=== PATIENT | female | born 1940 | race Two or more races ===

== ENCOUNTER 2018-11-18 21:42 | Emergency (ER) | payer MEDICAID, OTHER ==
[~2018-11-18] VITALS: Ht 160 cm; Wt 72.6 kg
[2018-11-18] MEDS ORDERED: ONDANSETRON HCL 4 MG/2 ML VIAL IV ONE (22:45)
[2018-11-18] MEDS ORDERED: SODIUM CHLORIDE 0.9% 1,000 ML IV ONE (22:45)
[2018-11-18 22:53] LABS: Basophils # (auto) 0.1 uL; Basophils % (auto) 1.1 % (0.0-2.0); Eosinophils # (auto) 0.2 uL; Eosinophils % (auto) 3.4 % (0.0-7.0); Hematocrit 39.5 % (36.0-46.0); Lymphocytes # (auto) 1.1 uL; Mean Corpuscular Hemoglobin 28.3 pg (28.0-32.0); Mean Corpuscular Hgb Conc. 32.9 g/dL (32.0-36.0); Mean Corpuscular Volume 85.9 fL (80.0-100.0); Monocytes # (auto) 0.8 uL; Monocytes % (auto) 15.5 % (0.0-12.0); Neutrophils # (auto) 3.1 uL; Platelet Count (auto) 213 10^3/uL (140-450); Red Cell Distribution Width 14.2 % (11.8-14.3); White Blood Cell 5.2 10^3/uL (4.4-10.8)
[2018-11-18 23:06] LABS: Alanine Aminotransferase 42 U/L (13-56); Albumin 2.9 g/dL (3.4-5.0); Anion Gap 10 (5-15); Blood Urea Nitrogen 7 mg/dL (7-18); Calcium 8.2 mg/dL (8.5-10.1); Carbon Dioxide 27 mmol/L (21-32); Chloride 93 mmol/L (98-107); Glucose 307 mg/dL (74-106); Sodium 130 mmol/L (136-145)
[2018-11-18 23:08] LABS: Lactic Acid w/Reflex 3.4 mmol/L (0.4-2.0)
[2018-11-18 23:11] LABS: Alkaline Phosphatase 61 U/L (45-117); Aspartate Aminotransferase 40 U/L (15-37); Bilirubin, Total 0.5 mg/dL (0.2-1.0); GFR African American 71 mL/min; GFR Non-African American 58 mL/min; Total Protein 6.6 g/dL (6.4-8.2)
[2018-11-18 23:12] LABS: Potassium 2.6 mmol/L (3.5-5.1)
[2018-11-18] MEDS ORDERED: POTASSIUM CHL 20MEQ/100ML 100 ML IV ONE (23:15)
[2018-11-18] MEDS ORDERED: POTASSIUM CHL 20 Meq TABLET PO ONE (23:15)
[2018-11-18 23:44] LABS: BUN/Creatinine Ratio 7.1
[2018-11-19 00:08] LABS: Urine Bacteria NONE SEEN /hpf (None Seen); Urine Blood Negative /uL (Negative); Urine Specific Gravity 1.005 (1.001-1.035); Urine WBC <1 /hpf (0 - 5)
[2018-11-19 01:33] VITALS: BP 115/62
== END 2018-11-19 03:15 | disposition home or self-care (01) ==
LOC: EDBD 21:42 → ER 21:46
DX: N23 Unspecified renal colic (principal); N20.0 Calculus of kidney; R11.10 Vomiting, unspecified; M19.90 Unspecified osteoarthritis, unspecified site; E11.9 Type 2 diabetes mellitus without complications; E78.5 Hyperlipidemia, unspecified; I11.0 Hypertensive heart disease with heart failure; I50.9 Heart failure, unspecified
CPT/HCPCS: 36415; 71045; 74176; 80053; 81001; 83605; 83690; 84484; 85025; 93005; 96361; 96374; 99284; J2405; J3480; J7030

== ENCOUNTER 2020-03-22 14:54 | Emergency (ER) | payer MEDICAID ==
[~2020-03-22] VITALS: Ht 162.6 cm; Wt 81.6 kg
[2020-03-22] MEDS ORDERED: SODIUM CHLORIDE 0.9% 500 ML IV ONE (15:45)
[2020-03-22 16:28] LABS: Basophils # (auto) 0 10 ^3/uL (0-0.2); Eosinophils # (auto) 0 10 ^3/uL (0-0.8); Eosinophils % (auto) 0.3 % (0.0-7.0); Lymphocytes # (auto) 0.7 10 ^3/uL (0.4-5.4); Mean Corpuscular Hemoglobin 26.2 pg (28.0-32.0); Monocytes # (auto) 0.3 10 ^3/uL (0-1.3); Red Cell Distribution Width 14.7 % (11.8-14.3)
[2020-03-22 16:30] LABS: Basophils % (auto) 0.4 % (0.0-2.0); Mean Corpuscular Hgb Conc. 32.5 g/dL (32.0-36.0); Mean Corpuscular Volume 80.7 fL (80.0-100.0); Monocytes % (auto) 3.7 % (0.0-12.0); Neutrophils # (auto) 7.1 10 ^3/uL (1.6-8.6); Neutrophils % (auto) 87.6 % (37.0-80.0); Nucleated Red Blood Cells % 0.1 %; Platelet Count (auto) 225 10^3/uL (140-450); Red Blood Cells 5.33 10^6/uL (4.0-5.20); White Blood Cell 8.1 10^3/uL (4.4-10.8)
[2020-03-22 16:34] LABS: Albumin 3.3 g/dL (3.4-5.0); Anion Gap 8 (5-15); Blood Urea Nitrogen 15 mg/dL (7-18); Calcium 8.7 mg/dL (8.5-10.1); Carbon Dioxide 25 mmol/L (21-32); Chloride 98 mmol/L (98-107); Potassium 3.6 mmol/L (3.5-5.1); Sodium 131 mmol/L (136-145)
[2020-03-22 16:40] LABS: Alanine Aminotransferase 44 U/L (13-56); Alkaline Phosphatase 116 U/L (45-117); Aspartate Aminotransferase 36 U/L (15-37); Bilirubin, Total 0.4 mg/dL (0.2-1.0); GFR African American 70 mL/min; GFR Non-African American 58 mL/min; Total Protein 7.6 g/dL (6.4-8.2)
[2020-03-22 16:49] LABS: Glucose 433 mg/dL (74-106)
[2020-03-22 17:00] LABS: BUN/Creatinine Ratio 15.3
[2020-03-22] MEDS ORDERED: InsuLIN REG 1unit/0.01ml Soln (100units/ml) IV ONE ×2 (17:00→20:00)
[2020-03-22] MEDS ORDERED: POTASSIUM CHL 20 Meq TABLET PO ONE (17:00)
[2020-03-22] MEDS ORDERED: SODIUM CHLORIDE 0.9% 1,000 ML IV ONE ×2 (17:45→19:45)
[2020-03-22] MEDS ORDERED: InsuLIN REG 1unit/0.01ml Soln (100units/ml) SC ONE (17:45)
[2020-03-22 20:45] VITALS: BP 148/79
== END 2020-03-22 20:56 | disposition home or self-care (01) ==
LOC: EDBD 14:54 → ER 14:54
DX: E11.65 Type 2 diabetes mellitus with hyperglycemia (principal); M19.90 Unspecified osteoarthritis, unspecified site; E78.5 Hyperlipidemia, unspecified; I11.0 Hypertensive heart disease with heart failure; I50.9 Heart failure, unspecified
CPT/HCPCS: 36415; 71045; 80053; 82962; 83036; 83880; 84443; 84484; 85025; 93005; 96361; 96372; 96374; 99285; J1815

== ENCOUNTER 2021-02-20 12:58 | Emergency (ER) | payer MEDICARE, MEDICAID ==
[~2021-02-20] VITALS: Ht 167.6 cm; Wt 77.1 kg
[2021-02-20 13:45] LABS: Basophils # (auto) 0.1 10 ^3/uL (0-0.2); Basophils % (auto) 1.6 % (0.0-2.0); Eosinophils # (auto) 0.3 10 ^3/uL (0-0.8); Hemoglobin 13.2 g/dL (12.2-16.2); Lymphocytes # (auto) 1.6 10 ^3/uL (0.4-5.4); Nucleated Red Blood Cells % 0.1 %; White Blood Cell 4.9 10^3/uL (4.4-10.8)
[2021-02-20 13:48] LABS: Eosinophils % (auto) 5.6 % (0.0-7.0); Hematocrit 39.1 % (36.0-46.0); Lymphocytes % (auto) 32.1 % (10.0-50.0); Mean Corpuscular Hemoglobin 26.5 pg (28.0-32.0); Mean Corpuscular Hgb Conc. 33.6 g/dL (32.0-36.0); Mean Corpuscular Volume 78.9 fL (80.0-100.0); Monocytes # (auto) 0.6 10 ^3/uL (0-1.3); Monocytes % (auto) 11.5 % (0.0-12.0); Neutrophils # (auto) 2.4 10 ^3/uL (1.6-8.6); Neutrophils % (auto) 49.2 % (37.0-80.0); Red Blood Cells 4.96 10^6/uL (4.0-5.20); Red Cell Distribution Width 15.4 % (11.8-14.3)
[2021-02-20 14:16] LABS: Alanine Aminotransferase 23 U/L (13-56); Anion Gap 6 (5-15); Aspartate Aminotransferase 26 U/L (15-37); BUN/Creatinine Ratio 11.1; Blood Urea Nitrogen 8 mg/dL (7-18); Calcium 8.3 mg/dL (8.5-10.1); Carbon Dioxide 25 mmol/L (21-32); Chloride 105 mmol/L (98-107); GFR African American 100 mL/min; GFR Non-African American 83 mL/min; Glucose 151 mg/dL (74-106); Potassium 4.1 mmol/L (3.5-5.1); Sodium 136 mmol/L (136-145)
[2021-02-20 14:20] LABS: Alkaline Phosphatase 101 U/L (45-117); Bilirubin, Total 0.3 mg/dL (0.2-1.0)
[2021-02-20 15:44] LABS: Urine Amorphous Crystal FEW /hpf (None Seen); Urine Bacteria FEW /hpf (None Seen); Urine Blood Negative /uL (Negative); Urine Hyaline Cast FEW /lpf (0 - 2); Urine Mucus FEW (None Seen); Urine Specific Gravity 1.008 (1.001-1.035); Urine WBC 114 /hpf (0 - 5); Urine WBC Clumps PRESENT /hpf (None Seen)
[2021-02-20] MEDS ORDERED: cefTRIAXone 1GM/50ML D5W 50 ML IV ONE (16:00)
[2021-02-20 16:19] VITALS: BP 180/72
== END 2021-02-20 16:25 | disposition home or self-care (01) ==
LOC: ER 12:58
DX: N39.0 Urinary tract infection, site not specified (principal); E46 Unspecified protein-calorie malnutrition; I11.0 Hypertensive heart disease with heart failure; I50.9 Heart failure, unspecified; E78.5 Hyperlipidemia, unspecified; E11.9 Type 2 diabetes mellitus without complications; Z68.27 Body mass index [BMI] 27.0-27.9, adult
CPT/HCPCS: 36415; 71045; 74176; 80053; 81001; 84484; 85025; 85049; 93005; 96365; 99285; J0696

== ENCOUNTER 2022-01-27 19:02 | Emergency (ER) | payer MEDICARE, MEDICAID ==
[~2022-01-27] VITALS: Ht 152.4 cm; Wt 99.8 kg
[2022-01-27] MEDS ORDERED: cloNIDine HCL 0.1 MG TAB PO ONE (19:45)
[2022-01-27] MEDS ORDERED: SUMAtriptan SUCCINATE 6 MG/0.5 ML VL SC ONE (20:15)
[2022-01-27 20:24] LABS: Urine Bacteria FEW /hpf (None Seen); Urine Blood Negative /uL (Negative); Urine Specific Gravity 1.005 (1.001-1.035); Urine WBC 66 /hpf (0 - 5)
[2022-01-27] MEDS ORDERED: cefTRIAXone SOD 1,000 MG VL IM ONE (21:00)
[2022-01-27] MEDS ORDERED: NITR-87 PO (21:11)
[2022-01-27 21:20] VITALS: BP 155/74
[2022-01-28] MEDS ORDERED: NITROGLYCERIN 0.4 MG SL TAB SL ONE (10:00)
== END 2022-01-27 21:22 | disposition home or self-care (01) ==
LOC: ER 19:02
DX: R51.9 Headache, unspecified (principal); I10 Essential (primary) hypertension; N39.0 Urinary tract infection, site not specified
CPT/HCPCS: 70450; 81001; 93005; 96372; 99285; J0696; J3030

== ENCOUNTER 2024-03-17 12:04 | Inpatient (IN) | payer MEDICARE, OTHER ==
[~2024-03-17] VITALS: Ht 162.6 cm; Wt 85.0 kg
[2024-03-17] VITALS (8 sets, daily range): BP systolic 107–136; BP diastolic 63–78; PULSE 80–106; RESP 17–34; TEMP 99.5; O2SAT 31–100
[~2024-03-17 12:04] MED LIST: NITR-87 PO
[2024-03-17] MEDS: ALBUTEROL SULF 2.5 MG/0.5ML(0.5%) NEB SOLN NEB ONE ×3 (12:23→16:22)
[2024-03-17 12:43] LABS: Basophils # (auto) 0.1 10 ^3/uL (0-0.2); Eosinophils # (auto) 0 10 ^3/uL (0-0.8); Eosinophils % (auto) 0.6 % (0.0-7.0); Lymphocytes # (auto) 1.3 10 ^3/uL (0.4-5.4); Monocytes # (auto) 0.6 10 ^3/uL (0-1.3); Neutrophils # (auto) 3.6 10 ^3/uL (1.6-8.6); White Blood Cell 5.6 10^3/uL (4.4-10.8)
[2024-03-17 12:45] LABS: Hematocrit 35.8 % (36.0-46.0); Hemoglobin 11.1 g/dL (12.2-16.2); Lymphocytes % (auto) 22.7 % (10.0-50.0); Mean Corpuscular Hemoglobin 20.3 pg (28.0-32.0); Mean Corpuscular Hgb Conc. 31.1 g/dL (32.0-36.0); Mean Corpuscular Volume 65.4 fL (80.0-100.0); Monocytes % (auto) 11.2 % (0.0-12.0); Neutrophils % (auto) 64.5 % (37.0-80.0); Nucleated Red Blood Cells % 0.3 %; Red Blood Cells 5.48 10^6/uL (4.0-5.20)
[2024-03-17 12:49] LABS: Red Cell Distribution Width 21.8 % (11.8-14.3)
[2024-03-17 13:00] LABS: Alanine Aminotransferase 34 U/L (7-40); Albumin 3.8 g/dL (3.2-4.8); Alkaline Phosphatase 82 U/L (46-116); Anion Gap 7 (5-15); Aspartate Aminotransferase 38 U/L (13-40); BUN/Creatinine Ratio 15.9 (10.0-20.0); Bilirubin, Total 0.5 mg/dL (0.2-1.0); Blood Urea Nitrogen 14 mg/dL (9-23); Calcium 8.5 mg/dL (8.7-10.4); Carbon Dioxide 26 mmol/L (20-30); Chloride 101 mmol/L (98-107); Glucose 72 mg/dL (74-106); Sodium 134 mmol/L (136-145)
[2024-03-17 13:01] LABS: Total Protein 5.8 g/dL (5.7-8.2)
[2024-03-17 13:54] LABS: Base Excess 1.1 mmol/L (-2.0-2.0)
[2024-03-17 13:54] LABS: Anisocytosis Slight; Ovalocytes FEW; Platelet Estimate Adequate
[2024-03-17] MEDS: FUROSEMIDE 40 MG/4 ML VIAL IV ONE (14:10)
[2024-03-17] MEDS: methylPREDNISolone SOD SUCC 125 MG/2 ML VL IV ONE (14:30)
[2024-03-17] MEDS ORDERED: ONDANSETRON HCL 4 MG/2 ML VIAL IV PRN (14:45)
[2024-03-17] MEDS ORDERED: NITROGLYCERIN 0.4 MG SL TAB SL PRN (14:45)
[2024-03-17] MEDS ORDERED: DEXTROSE (50%) 50ML SYRG IV PRN (14:45)
[2024-03-17] MEDS ORDERED: DOCUSATE SOD 100 MG CAP PO PRN (14:45)
[2024-03-17] MEDS ORDERED: levoFLOXacin 500MG 100 ML IV ONE (14:45)
[2024-03-17] MEDS ORDERED: MORPHINE SULFATE INJ 2 MG/ml SYRG IV PRN (14:45)
[2024-03-17] MEDS: ENOXAPARIN SOD 40 MG/0.4 ML SYRINGE SC SCH (15:48)
[2024-03-17] MEDS: levoFLOXacin 500MG 100 ML IV ONE (15:48)
[2024-03-17] MEDS: IPRATROPIUM BROM 0.5 MG/2.5ML INH SOL NEB ONE (16:22)
[2024-03-17 17:03] LABS: Base Excess -0.9 mmol/L (-2.0-2.0)
[2024-03-17] MEDS: IPRATROPIUM BROM 0.5 MG/2.5ML INH SOL NEB SCH (17:44)
[2024-03-17] MEDS: ALBUTEROL SULF 2.5 MG/0.5ML(0.5%) NEB SOLN NEB SCH (17:46)
[2024-03-17] MEDS: ACCU-CHEK COMFORT CURVE STRIP VI SCH (18:00)
[2024-03-17] MEDS: InsuLIN REG 1unit/0.01ml Soln (100units/ml) SC SCH (18:30)
[2024-03-17] MEDS: PANTOPRAZOLE 40 MG/10 ML VIAL INJ IV ONE (18:38)
[2024-03-17] MEDS: FUROSEMIDE 20 MG/2 ML VIAL IV SCH (18:39)
[2024-03-17] MEDS: ENOXAPARIN SOD 30 MG/0.3 ML SYRINGE SC ONE (19:28)
[2024-03-17 19:54] LABS: INR 1.13 (0.9-1.15); Prothrombin Time 11.9 sec (9.3-11.8)
[2024-03-17] MEDS: MELATONIN 5 MG TAB PO SCH (22:12)
[2024-03-17] MEDS: methylPREDNISolone SOD SUCC 125 MG/2 ML VL IV SCH (22:12)
[2024-03-18] VITALS (20 sets, daily range): BP systolic 106–128; BP diastolic 43–58; PULSE 71–92; RESP 13–25; TEMP 97.9–98.4; O2SAT 92–100
[2024-03-18] MEDS: MORPHINE SULFATE INJ 2 MG/ml SYRG IV PRN (04:28)
[2024-03-18 06:17] LABS: Alanine Aminotransferase 29 U/L (7-40); Albumin 3.4 g/dL (3.2-4.8); Alkaline Phosphatase 65 U/L (46-116); Anion Gap 12 (5-15); Aspartate Aminotransferase 37 U/L (13-40); BUN/Creatinine Ratio 16.2 (10.0-20.0); Basophils # (auto) 0 10 ^3/uL (0-0.2); Basophils % (auto) 0.2 % (0.0-2.0); Blood Urea Nitrogen 22 mg/dL (9-23); Calcium 7.6 mg/dL (8.7-10.4); Carbon Dioxide 20 mmol/L (20-30); Chloride 96 mmol/L (98-107); Eosinophils # (auto) 0 10 ^3/uL (0-0.8); Hemoglobin 9.9 g/dL (12.2-16.2); Lymphocytes # (auto) 0.4 10 ^3/uL (0.4-5.4); Nucleated Red Blood Cells % 0.2 %; Potassium 3.9 mmol/L (3.5-5.1); Red Cell Distribution Width 22.3 % (11.8-14.3); White Blood Cell 3.9 10^3/uL (4.4-10.8)
[2024-03-18 06:18] LABS: Bilirubin, Total 0.3 mg/dL (0.2-1.0); Hematocrit 31.5 % (36.0-46.0); Lymphocytes % (auto) 10.4 % (10.0-50.0); Mean Corpuscular Hemoglobin 20.8 pg (28.0-32.0); Mean Corpuscular Hgb Conc. 31.5 g/dL (32.0-36.0); Mean Corpuscular Volume 65.9 fL (80.0-100.0); Monocytes # (auto) 0.2 10 ^3/uL (0-1.3); Monocytes % (auto) 4.1 % (0.0-12.0); Neutrophils # (auto) 3.3 10 ^3/uL (1.6-8.6); Neutrophils % (auto) 85.3 % (37.0-80.0); Red Blood Cells 4.78 10^6/uL (4.0-5.20); Total Protein 5.8 g/dL (5.7-8.2)
[2024-03-18] MEDS: ENOXAPARIN SOD 60 MG/0.6 ML SYRINGE SC SCH (06:18)
[2024-03-18 06:20] LABS: Sodium 128 mmol/L (136-145)
[2024-03-18 06:22] LABS: Glucose 459 mg/dL (74-106)
[2024-03-18] MEDS: INSULIN LANTUS (GLARGINE) 1 /0.01ml (100units/ml) SC SCH ×2 (06:22→21:31)
[2024-03-18 06:39] LABS: Anisocytosis Slight
[2024-03-18 06:40] LABS: Hypochromia Moderate; Ovalocytes FEW
[2024-03-18 06:44] LABS: Platelet Estimate Adequate
[2024-03-18] MEDS ORDERED: DEXTROSE (50%) 50ML SYRG IV PRN ×2 (08:15→16:15)
[2024-03-18] MEDS ORDERED: levoFLOXacin 500MG 100 ML IV SCH (10:00)
[2024-03-18] MEDS: PANTOPRAZOLE 40 MG/10 ML VIAL INJ IV SCH (10:15)
[2024-03-18] MEDS: cefTRIAXone 1GM/50ML D5W 50 ML IV ONE (10:15)
[2024-03-18] MEDS: levoFLOXacin 250MG 50 ML IV SCH (11:21)
[2024-03-18] MEDS: ACCU-CHEK COMFORT CURVE STRIP VI SCH ×2 (12:00→19:44)
[2024-03-18] MEDS: InsuLIN REG 1unit/0.01ml Soln (100units/ml) SC SCH ×3 (12:00→19:52)
[2024-03-18] MEDS: INSULIN LANTUS (GLARGINE) 1 /0.01ml (100units/ml) SC ONE (13:00)
[2024-03-18] MEDS: InsuLIN REG 1unit/0.01ml Soln (100units/ml) SC ONE (13:00)
[2024-03-18] MEDS ORDERED: OXYB10GE TOP (17:15)
[2024-03-18] MEDS ORDERED: LEVO25TA6 PO (17:15)
[2024-03-18] MEDS ORDERED: ATOR10TA52 PO (17:15)
[2024-03-18] MEDS ORDERED: OXYB5SOL PO (17:15)
[2024-03-18] MEDS ORDERED: AML5T PO (17:15)
[2024-03-18] MEDS ORDERED: SITA50TA PO (17:15)
[2024-03-18] MEDS ORDERED: LOSA-534 PO (17:15)
[2024-03-18] MEDS ORDERED: CHOL20007 PO (17:15)
[2024-03-18] MEDS ORDERED: POTA-36 PO (17:15)
[2024-03-18] MEDS ORDERED: OMEP-434 PO (17:15)
[2024-03-18] MEDS ORDERED: FURO1TAB33 PO (17:15)
[2024-03-18] MEDS ORDERED: GLIP10TA9 PO (17:15)
[2024-03-18] MEDS ORDERED: METO-158 PO (17:15)
[2024-03-18] MEDS: predniSONE 20 MG TAB PO ONE (18:17)
[2024-03-19] VITALS (18 sets, daily range): BP systolic 107–136; BP diastolic 51–68; PULSE 63–105; RESP 16–21; TEMP 97.5–98.7; O2SAT 9–100
[2024-03-19 00:55] LABS: COVID19 ANTIGEN SOFIA FIA NEGATIVE (NEGATIVE); Rapid Influenza A Negative (Negative); Rapid Influenza B Negative (Negative)
[2024-03-19 05:38] LABS: Basophils # (auto) 0 10 ^3/uL (0-0.2); Basophils % (auto) 0.1 % (0.0-2.0); Eosinophils # (auto) 0 10 ^3/uL (0-0.8); Hematocrit 29.4 % (36.0-46.0); Hemoglobin 9.6 g/dL (12.2-16.2); Lymphocytes # (auto) 0.6 10 ^3/uL (0.4-5.4); Lymphocytes % (auto) 5.8 % (10.0-50.0); Mean Corpuscular Hemoglobin 21.1 pg (28.0-32.0); Mean Corpuscular Hgb Conc. 32.6 g/dL (32.0-36.0); Mean Corpuscular Volume 64.6 fL (80.0-100.0); Monocytes # (auto) 0.5 10 ^3/uL (0-1.3); Monocytes % (auto) 5.4 % (0.0-12.0); Neutrophils # (auto) 8.9 10 ^3/uL (1.6-8.6); Neutrophils % (auto) 88.7 % (37.0-80.0); Nucleated Red Blood Cells % 0.1 %; Red Blood Cells 4.55 10^6/uL (4.0-5.20); White Blood Cell 10.1 10^3/uL (4.4-10.8)
[2024-03-19 05:39] LABS: Red Cell Distribution Width 21.8 % (11.8-14.3)
[2024-03-19 05:47] LABS: Alanine Aminotransferase 25 U/L (7-40); Albumin 3.6 g/dL (3.2-4.8); Alkaline Phosphatase 64 U/L (46-116); Anion Gap 7 (5-15); Aspartate Aminotransferase 25 U/L (13-40); BUN/Creatinine Ratio 27.7 (10.0-20.0); Bilirubin, Total 0.3 mg/dL (0.2-1.0); Blood Urea Nitrogen 28 mg/dL (9-23); Calcium 8.2 mg/dL (8.7-10.4); Carbon Dioxide 25 mmol/L (20-30); Chloride 99 mmol/L (98-107); Glucose 177 mg/dL (74-106); Magnesium 1.9 mg/dL (1.6-2.6); Potassium 4.1 mmol/L (3.5-5.1); Sodium 131 mmol/L (136-145); Total Protein 5.7 g/dL (5.7-8.2)
[2024-03-19] MEDS: LEVOTHYROXINE SODIUM 25 MCG TAB PO SCH (06:09)
[2024-03-19] MEDS: cefTRIAXone 1GM/50ML D5W 50 ML IV SCH (08:31)
[2024-03-19] MEDS: predniSONE 20 MG TAB PO SCH (09:54)
[2024-03-19] MEDS: ATORVASTATIN 20 MG TAB PO SCH (09:54)
[2024-03-19] MEDS: ENOXAPARIN SOD 40 MG/0.4 ML SYRINGE SC SCH (09:55)
[2024-03-19 11:13] LABS: Urine Bacteria None Seen /hpf (None Seen)
[2024-03-19] MEDS ORDERED: PANTOPRAZOLE 40 MG TAB PO ONE (11:30)
[2024-03-19 11:52] LABS: Amphetamine Screen, Urine Neg (NEGATIVE); Barbiturate Scree,Urine Neg (NEGATIVE); Benzodiazephine Screen, Urine Neg (NEGATIVE); Cocaine Screen, Urine Neg (NEGATIVE)
[2024-03-19 11:53] LABS: Cannabinoid Screen, Urine Neg (NEGATIVE); Opiate Scree,Urine Neg (NEGATIVE); Phencyclidine Screen, Urine Neg (NEGATIVE)
[2024-03-19] MEDS ORDERED: DEXTROSE (50%) 50ML SYRG IV PRN (12:00)
[2024-03-19] MEDS: ACCU-CHEK COMFORT CURVE STRIP VI SCH (12:00)
[2024-03-19 12:03] LABS: Urine Blood TRACE /uL (Negative); Urine Clarity Clear (Clear); Urine Color Light-Yellow (Yellow); Urine Hyaline Cast FEW /lpf (0 - 2); Urine Protein, UAD Negative (Negative); Urine Specific Gravity 1.015 (1.001-1.035); Urine Urobilinogen Normal (Negative); Urine WBC 1 /hpf (0 - 5); Urine pH 5.5 (5.0-9.0)
[2024-03-19 12:10] LABS: Free T4 (Free Thyroxine) 0.96 ng/dL (0.89-1.76); T3 Total 0.94 ng/mL (0.60-1.81)
[2024-03-19] MEDS: InsuLIN REG 1unit/0.01ml Soln (100units/ml) SC SCH (12:11)
[2024-03-19] MEDS ORDERED: FUROSEMIDE 20 MG TAB PO ONE (12:15)
[2024-03-19] MEDS: ERGOCALCIFEROL 50,000 UNIT(1.25MG) CAP PO SCH (16:58)
[2024-03-19] MEDS: FUROSEMIDE 20 MG/2 ML VIAL IV ONE (16:58)
[2024-03-19] MEDS: ATORVASTATIN 20 MG TAB PO ONE (16:59)
[2024-03-19] MEDS: CYANOCOBALAMIN (B-12) 1000 MCG/1 ML VIAL IM ONE (17:00)
[2024-03-19] MEDS: ACETYLCYSTEINE 10 %(100MG/ML) SOL 4ML NEB SCH (18:28)
[2024-03-19] MEDS: methylPREDNISolone SOD SUCC 125 MG/2 ML VL IV SCH (21:27)
[2024-03-20] VITALS (20 sets, daily range): BP systolic 120–146; BP diastolic 49–75; PULSE 68–103; RESP 16–22; TEMP 98.1–98.2; O2SAT 94–100
[2024-03-20] MEDS: PANTOPRAZOLE 40 MG TAB PO SCH (06:04)
[2024-03-20] MEDS: FUROSEMIDE 20 MG/2 ML VIAL IV SCH (06:04)
[2024-03-20 06:07] LABS: Basophils # (auto) 0 10 ^3/uL (0-0.2); Basophils % (auto) 0.1 % (0.0-2.0); Eosinophils # (auto) 0 10 ^3/uL (0-0.8); Hematocrit 29.3 % (36.0-46.0); Hemoglobin 9.5 g/dL (12.2-16.2); Lymphocytes # (auto) 0.2 10 ^3/uL (0.4-5.4); Lymphocytes % (auto) 2.5 % (10.0-50.0); Mean Corpuscular Hemoglobin 21.2 pg (28.0-32.0); Mean Corpuscular Hgb Conc. 32.4 g/dL (32.0-36.0); Mean Corpuscular Volume 65.4 fL (80.0-100.0); Monocytes # (auto) 0.3 10 ^3/uL (0-1.3); Monocytes % (auto) 3.5 % (0.0-12.0); Neutrophils % (auto) 93.9 % (37.0-80.0); Red Blood Cells 4.48 10^6/uL (4.0-5.20); White Blood Cell 8.5 10^3/uL (4.4-10.8)
[2024-03-20 06:11] LABS: Red Cell Distribution Width 22.2 % (11.8-14.3)
[2024-03-20 06:13] LABS: Chloride 98 mmol/L (98-107); Potassium 3.8 mmol/L (3.5-5.1); Sodium 131 mmol/L (136-145)
[2024-03-20 06:14] LABS: Anion Gap 10 (5-15); Carbon Dioxide 23 mmol/L (20-30)
[2024-03-20 06:15] LABS: Calcium 8.3 mg/dL (8.7-10.4)
[2024-03-20 06:19] LABS: Glucose 388 mg/dL (74-106)
[2024-03-20 06:20] LABS: BUN/Creatinine Ratio 23.2 (10.0-20.0); Blood Urea Nitrogen 23 mg/dL (9-23)
[2024-03-20] MEDS ORDERED: FUROSEMIDE 20 MG/2 ML VIAL IV SCH (10:00)
[2024-03-20] MEDS ORDERED: FUROSEMIDE 20 MG TAB PO SCH (10:00)
[2024-03-20] MEDS ORDERED: LEVO750T40 PO (16:35)
[2024-03-20] MEDS ORDERED: MELA5TAB16 PO (16:35)
[2024-03-20] MEDS ORDERED: ERGO1CAP23 PO (16:35)
[2024-03-20] MEDS ORDERED: PANT40T PO (16:35)
[2024-03-20] MEDS ORDERED: ATOR20TA50 PO (16:35)
[2024-03-20] MEDS ORDERED: INSLANTI SC (16:35)
[2024-03-20] MEDS ORDERED: LEVO500T91 PO (16:40)
[2024-03-20] MEDS: InsuLIN REG 1unit/0.01ml Soln (100units/ml) SC SCH ×2 (17:34→21:51)
[2024-03-20] MEDS: DOCUSATE SOD 100 MG CAP PO ONE (18:30)
[2024-03-20] MEDS: INSULIN LANTUS (GLARGINE) 1 /0.01ml (100units/ml) SC ONE (18:47)
[2024-03-20] MEDS: ATORVASTATIN 20 MG TAB PO SCH (22:04)
[2024-03-21] VITALS (16 sets, daily range): BP systolic 131–142; BP diastolic 54–66; PULSE 83–109; RESP 16–21; TEMP 36.8; O2SAT 91–100
[2024-03-21] MEDS ORDERED: DEXTROSE (50%) 50ML SYRG IV PRN (00:15)
[2024-03-21] MEDS: InsuLIN REG 1unit/0.01ml Soln (100units/ml) SC ONE (00:36)
[2024-03-21] MEDS: ACCU-CHEK COMFORT CURVE STRIP VI SCH (03:38)
[2024-03-21] MEDS: InsuLIN REG 1unit/0.01ml Soln (100units/ml) SC SCH (03:38)
[2024-03-21] MEDS ORDERED: InsuLIN REG 1unit/0.01ml Soln (100units/ml) SC SCH (04:00)
[2024-03-21 07:00] LABS: Basophils # (auto) 0 10 ^3/uL (0-0.2); Basophils % (auto) 0.2 % (0.0-2.0); Eosinophils # (auto) 0 10 ^3/uL (0-0.8); Hematocrit 30.5 % (36.0-46.0); Hemoglobin 9.6 g/dL (12.2-16.2); Lymphocytes # (auto) 0.6 10 ^3/uL (0.4-5.4); Mean Corpuscular Hemoglobin 20.6 pg (28.0-32.0); Mean Corpuscular Hgb Conc. 31.6 g/dL (32.0-36.0); Mean Corpuscular Volume 65.3 fL (80.0-100.0); Monocytes # (auto) 0.9 10 ^3/uL (0-1.3); Monocytes % (auto) 9.5 % (0.0-12.0); Neutrophils # (auto) 7.5 10 ^3/uL (1.6-8.6); Neutrophils % (auto) 83.3 % (37.0-80.0); Nucleated Red Blood Cells % 0.1 %; Red Blood Cells 4.67 10^6/uL (4.0-5.20)
[2024-03-21 07:01] LABS: Red Cell Distribution Width 21.8 % (11.8-14.3)
[2024-03-21 07:17] LABS: Partial Thromboplastin Time 26.3 SEC (24.5-34.5); Prothrombin Time 10.6 sec (9.3-11.8)
[2024-03-21 07:28] LABS: Alanine Aminotransferase 24 U/L (7-40); Alkaline Phosphatase 70 U/L (46-116); Anion Gap 9 (5-15); BUN/Creatinine Ratio 25.3 (10.0-20.0); Blood Urea Nitrogen 21 mg/dL (9-23); Calcium 8.6 mg/dL (8.7-10.4); Carbon Dioxide 26 mmol/L (20-30); Chloride 100 mmol/L (98-107); Glucose 243 mg/dL (74-106); Potassium 3.8 mmol/L (3.5-5.1); Sodium 135 mmol/L (136-145)
[2024-03-21 07:29] LABS: Albumin 3.7 g/dL (3.2-4.8); Aspartate Aminotransferase 14 U/L (13-40)
[2024-03-21 07:30] LABS: Bilirubin, Total 0.4 mg/dL (0.2-1.0); Total Protein 6.1 g/dL (5.7-8.2)
[2024-03-21] MEDS: methylPREDNISolone SOD SUCC 40 MG/ML VL IV SCH (09:01)
[2024-03-21] MEDS: DOCUSATE SOD 100 MG CAP PO SCH (09:02)
[2024-03-21] MEDS ORDERED: PRED20TA2 PO (11:26)
[2024-03-21] MEDS ORDERED: CYAN100056 PO (14:58)
[2024-03-21] MEDS ORDERED: INSLANTI SC (14:58)
[2024-03-21 15:26] LABS: Base Excess 0.7 mmol/L (-2.0-2.0)
[2024-03-21] MEDS: LACTULOSE 20Gm/30ML SOLN PO ONE (17:10)
[2024-03-22] MEDS ORDERED: levoFLOXacin 500MG 100 ML IV SCH (10:00)
== END 2024-03-21 17:35 | disposition home health service (06) | DRG 871 ==
LOC: EDBD 12:04 → EDUNIT# 12:04 → ER 12:11 → TELE 14:58 → TELE-WESTW 14:58 → DOU IN ICU 03-18 00:31 → TELE-WESTW 03-18 17:56
PROVIDERS: ADMIT Internal Medicine; ATTEND Internal Medicine
PROC: 5A09357 Assistance with Respiratory Ventilation, Less than 24 Consecutive Hours, Continuous Positive Airway Pressure (ICD-10-PCS; principal; 2024-03-17)
DX: A41.9 Sepsis, unspecified organism (principal); I50.43 Acute on chronic combined systolic (congestive) and diastolic (congestive) heart failure; J96.01 Acute respiratory failure with hypoxia; J15.69 Pneumonia due to other Gram-negative bacteria; J15.9 Unspecified bacterial pneumonia; J44.1 Chronic obstructive pulmonary disease with (acute) exacerbation; J44.0 Chronic obstructive pulmonary disease with (acute) lower respiratory infection; Z20.822 Contact with and (suspected) exposure to COVID-19; D64.9 Anemia, unspecified; I11.0 Hypertensive heart disease with heart failure; E78.5 Hyperlipidemia, unspecified; M19.09 Primary osteoarthritis, other specified site; R91.1 Solitary pulmonary nodule; E03.9 Hypothyroidism, unspecified; E55.9 Vitamin D deficiency, unspecified; E11.65 Type 2 diabetes mellitus with hyperglycemia; Z79.899 Other long term (current) drug therapy; Z79.4 Long term (current) use of insulin
CPT/HCPCS: 36415; 36600; 71045; 71250; 78582; 80048; 80053; 80307; 81001; 82306; 82607; 82805; 82962; 83036; 83605; 83735; 83880; 84439; 84443; 84480; 84484; 85025; 85379; 85610; 85730; 87040; 87070; 87077; 87081; 87086; 87205; 87426; 87804; 93005; 93306; 93970; 94640; 94660; 97110; 97116; 97163; 97530; 99291; G0378; J1815; J1956; J2470

== ENCOUNTER 2024-05-21 18:18 | Inpatient (IN) | payer MEDICARE, OTHER ==
[~2024-05-21] VITALS: Ht 167.6 cm; Wt 84.1 kg
[~2024-05-21 18:18] MED LIST changes: +ATOR20TA50 PO; +CITA-77 PO; +CYAN100056 PO; +CYAN1TAB11 PO; +ERGO1CAP23 PO; +FURO1TAB33 PO; +FURO20TA3 PO; +GLIP10TA9 PO; +INSLANTI SC; +LEVO25TA6 PO; +LEVO500T91 PO; +LOSA-534 PO; +MELA5TAB16 PO; +METO-158 PO; +METO-289 PO; -NITR-87 PO; +OMEP-434 PO; +OXYB10GE TOP; +OXYB5TAB14 PO; +PANT40T PO; +POTA-36 PO; +PRED20TA2 PO; +SITA50TA PO; +SUCR1TAB PO
[2024-05-21 18:50] LABS: Basophils # (auto) 0.1 10 ^3/uL (0-0.2); Eosinophils # (auto) 0.2 10 ^3/uL (0-0.8); Hemoglobin 11.9 g/dL (12.2-16.2); Lymphocytes # (auto) 1.7 10 ^3/uL (0.4-5.4); Monocytes # (auto) 0.7 10 ^3/uL (0-1.3)
[2024-05-21 18:52] LABS: Basophils % (auto) 1.6 % (0.0-2.0); Eosinophils % (auto) 3.6 % (0.0-7.0); Hematocrit 37.1 % (36.0-46.0); Lymphocytes % (auto) 35.9 % (10.0-50.0); Mean Corpuscular Hemoglobin 22.6 pg (28.0-32.0); Mean Corpuscular Hgb Conc. 32.1 g/dL (32.0-36.0); Mean Corpuscular Volume 70.6 fL (80.0-100.0); Monocytes % (auto) 14.3 % (0.0-12.0); Neutrophils # (auto) 2.2 10 ^3/uL (1.6-8.6); Neutrophils % (auto) 44.6 % (37.0-80.0); Nucleated Red Blood Cells % 0.2 %; Platelet Count (auto) 348 10^3/uL (140-450); Red Blood Cells 5.26 10^6/uL (4.0-5.20); Red Cell Distribution Width 21.6 % (11.8-14.3); White Blood Cell 4.9 10^3/uL (4.4-10.8)
[2024-05-21 19:08] LABS: Alanine Aminotransferase 25 U/L (7-40); Alkaline Phosphatase 72 U/L (46-116); Anion Gap 7 (5-15); Aspartate Aminotransferase 57 U/L (13-40); BUN/Creatinine Ratio 8.9 (10.0-20.0); Blood Urea Nitrogen 10 mg/dL (9-23); Carbon Dioxide 27 mmol/L (20-30); Chloride 97 mmol/L (98-107); Glucose 96 mg/dL (74-106); Lipase 46 U/L (12-53)
[2024-05-21 19:09] LABS: Bilirubin, Total 0.6 mg/dL (0.2-1.0); Total Protein 6.5 g/dL (5.7-8.2)
[2024-05-21 19:10] LABS: Sodium 131 mmol/L (136-145)
[2024-05-21 19:30] VITALS: RESP 16
[2024-05-21] MEDS: ACETAMINOPHEN 325 MG TAB PO ONE (20:15)
[2024-05-21] MEDS ORDERED: DEXTROSE (50%) 50ML SYRG IV PRN (22:00)
[2024-05-21] MEDS ORDERED: SODIUM CHLORIDE 0.9% 1,000 ML IV SCH (23:00)
[2024-05-22] VITALS (9 sets, daily range): BP systolic 100–152; BP diastolic 33–48; PULSE 57–67; RESP 16–18; TEMP 96.6–97.8; O2SAT 91–99
[2024-05-22] MEDS: ACCU-CHEK COMFORT CURVE STRIP VI SCH
[2024-05-22] MEDS: MAGNESIUM SULFATE 1GM/100ML 100 ML IV SCH ×2 (00:15→05:54)
[2024-05-22] MEDS: ONDANSETRON ODT 4 MG TAB PO ONE (00:31)
[2024-05-22] MEDS: ENOXAPARIN SOD 40 MG/0.4 ML SYRINGE SC ONE (00:32)
[2024-05-22] MEDS: METOPROLOL SUCCINATE XL 50 MG TAB PO ONE (00:33)
[2024-05-22] MEDS: ATORVASTATIN 20 MG TAB PO SCH (00:33)
[2024-05-22] MEDS: LOSARTAN POTASSIUM 50 MG TAB PO ONE (00:33)
[2024-05-22] MEDS: SUCRALFATE 1 GM TAB PO SCH (00:34)
[2024-05-22] MEDS: LEVOTHYROXINE SODIUM 25 MCG TAB PO ONE (00:34)
[2024-05-22] MEDS: SODIUM CHLORIDE 0.9% 1,000 ML IV ONE (00:34)
[2024-05-22] MEDS: InsuLIN REG 1unit/0.01ml Soln (100units/ml) SC SCH (00:35)
[2024-05-22] MEDS: PANTOPRAZOLE 40 MG/10 ML VIAL INJ IV ONE (00:36)
[2024-05-22] MEDS: POTASSIUM CHL 20MEQ/100ML 100 ML IV ONE ×2 (00:49→03:16)
[2024-05-22] MEDS ORDERED: AMLO1TAB23 PO (03:29)
[2024-05-22] MEDS ORDERED: CHOL20007 PO (03:30)
[2024-05-22] MEDS: ACETAMINOPHEN 500 MG TAB PO PRN (03:34)
[2024-05-22] MEDS: LEVOTHYROXINE SODIUM 25 MCG TAB PO SCH (05:50)
[2024-05-22] MEDS: SODIUM CHLORIDE 0.9% 1,000 ML IV SCH (06:14)
[2024-05-22 07:21] LABS: Rapid Influenza A Negative (Negative); Rapid Influenza B Negative (Negative)
[2024-05-22 07:22] LABS: COVID19 ANTIGEN SOFIA FIA NEGATIVE (NEGATIVE)
[2024-05-22 07:34] LABS: Basophils # (auto) 0.1 10 ^3/uL (0-0.2); Basophils % (auto) 1.2 % (0.0-2.0); Eosinophils # (auto) 0.2 10 ^3/uL (0-0.8); Eosinophils % (auto) 3.3 % (0.0-7.0); Hematocrit 34.4 % (36.0-46.0); Hemoglobin 11.1 g/dL (12.2-16.2); Lymphocytes # (auto) 2.1 10 ^3/uL (0.4-5.4); Lymphocytes % (auto) 36.5 % (10.0-50.0); Mean Corpuscular Hemoglobin 22.9 pg (28.0-32.0); Mean Corpuscular Hgb Conc. 32.1 g/dL (32.0-36.0); Mean Corpuscular Volume 71.4 fL (80.0-100.0); Monocytes # (auto) 0.9 10 ^3/uL (0-1.3); Monocytes % (auto) 15.5 % (0.0-12.0); Neutrophils # (auto) 2.5 10 ^3/uL (1.6-8.6); Neutrophils % (auto) 43.5 % (37.0-80.0); Nucleated Red Blood Cells % 0.1 %; Platelet Count (auto) 345 10^3/uL (140-450); Red Blood Cells 4.83 10^6/uL (4.0-5.20); Red Cell Distribution Width 21.7 % (11.8-14.3); White Blood Cell 5.8 10^3/uL (4.4-10.8)
[2024-05-22 07:44] LABS: Anion Gap 10 (5-15); Carbon Dioxide 24 mmol/L (20-30); Chloride 98 mmol/L (98-107); Potassium 3.5 mmol/L (3.5-5.1); Sodium 132 mmol/L (136-145)
[2024-05-22 07:45] LABS: Calcium 8.5 mg/dL (8.7-10.4)
[2024-05-22 07:50] LABS: Glucose 63 mg/dL (74-106)
[2024-05-22 07:51] LABS: BUN/Creatinine Ratio 8.4 (10.0-20.0); Blood Urea Nitrogen 11 mg/dL (9-23)
[2024-05-22] MEDS: MORPHINE SULFATE INJ 2 MG/ml SYRG IV PRN (09:09)
[2024-05-22] MEDS ORDERED: LOSARTAN POTASSIUM 50 MG TAB PO SCH (10:00)
[2024-05-22] MEDS ORDERED: METOPROLOL SUCCINATE XL 50 MG TAB PO SCH (10:00)
[2024-05-22] MEDS: PANTOPRAZOLE 40 MG/10 ML VIAL INJ IV SCH (11:04)
[2024-05-22] MEDS ORDERED: IPRATROPIUM BROM 0.5 MG/2.5ML INH SOL NEB PRN (13:15)
[2024-05-22 18:43] LABS: Urine Bacteria FEW /hpf (None Seen); Urine Blood Negative /uL (Negative); Urine Clarity Turbid (Clear); Urine Color Light-Yellow (Yellow); Urine Mucus FEW (None Seen); Urine Protein, UAD Negative (Negative); Urine Urobilinogen Normal (Negative); Urine WBC 8 /hpf (0 - 5); Urine pH 5.5 (5.0-9.0)
[2024-05-23] VITALS (10 sets, daily range): BP systolic 111–154; BP diastolic 39–62; PULSE 59–70; RESP 18–20; TEMP 97.8–98.6; O2SAT 91–99
[2024-05-23] MEDS: InsuLIN REG 1unit/0.01ml Soln (100units/ml) SC SCH (02:00)
[2024-05-23] MEDS: ACCU-CHEK COMFORT CURVE STRIP VI SCH (02:00)
[2024-05-23 07:50] LABS: Eosinophils # (auto) 0.2 10 ^3/uL (0-0.8); Hemoglobin 10.6 g/dL (12.2-16.2); Lymphocytes # (auto) 1.1 10 ^3/uL (0.4-5.4); Mean Corpuscular Hgb Conc. 31.4 g/dL (32.0-36.0); Monocytes # (auto) 0.6 10 ^3/uL (0-1.3); Neutrophils # (auto) 2.2 10 ^3/uL (1.6-8.6); White Blood Cell 4.2 10^3/uL (4.4-10.8)
[2024-05-23] MEDS: ONDANSETRON HCL 4 MG/2 ML VIAL IV PRN (07:50)
[2024-05-23 07:53] LABS: Basophils # (auto) 0.1 10 ^3/uL (0-0.2); Basophils % (auto) 1.5 % (0.0-2.0); Eosinophils % (auto) 4.2 % (0.0-7.0); Hematocrit 33.9 % (36.0-46.0); Lymphocytes % (auto) 26.5 % (10.0-50.0); Mean Corpuscular Hemoglobin 22.3 pg (28.0-32.0); Monocytes % (auto) 14.8 % (0.0-12.0); Nucleated Red Blood Cells % 0.2 %; Platelet Count (auto) 321 10^3/uL (140-450); Red Blood Cells 4.77 10^6/uL (4.0-5.20)
[2024-05-23 08:04] LABS: INR 1.06 (0.9-1.15); Partial Thromboplastin Time 30.3 SEC (24.5-34.5); Prothrombin Time 11.2 sec (9.3-11.8)
[2024-05-23 08:10] LABS: Anion Gap 7 (5-15); Carbon Dioxide 27 mmol/L (20-30); Chloride 101 mmol/L (98-107); Potassium 3.6 mmol/L (3.5-5.1); Sodium 135 mmol/L (136-145)
[2024-05-23 08:11] LABS: Calcium 8.3 mg/dL (8.7-10.4)
[2024-05-23 08:16] LABS: BUN/Creatinine Ratio 8.2 (10.0-20.0); Blood Urea Nitrogen 12 mg/dL (9-23); Glucose 79 mg/dL (74-106)
[2024-05-23 08:17] LABS: Magnesium 2.5 mg/dL (1.6-2.6)
[2024-05-23 08:28] LABS: Red Cell Distribution Width 21.5 % (11.8-14.3)
[2024-05-23] MEDS ORDERED: MIDAZOLAM HCL 2MG/2ML 2ml VIAL (1mg/ml) ONE (12:03)
[2024-05-23] MEDS ORDERED: KETAMINE 50mg/ML 1ml syringe ONE (12:03)
[2024-05-23] MEDS ORDERED: PROPOFOL 10 MG/ML 20 ML IV ONE (13:26)
[2024-05-23] MEDS: cefTRIAXone 1GM/50ML D5W 50 ML IV ONE (14:25)
[2024-05-23] MEDS: ONDANSETRON HCL 4 MG/2 ML VIAL IV ONE (14:25)
[2024-05-24] VITALS (13 sets, daily range): BP systolic 121–146; BP diastolic 41–64; PULSE 65–75; RESP 16–20; TEMP 97.3–98.3; O2SAT 92–98
[2024-05-24 07:05] LABS: Basophils # (auto) 0 10 ^3/uL (0-0.2); Basophils % (auto) 1.1 % (0.0-2.0); Eosinophils # (auto) 0.2 10 ^3/uL (0-0.8); Eosinophils % (auto) 3.8 % (0.0-7.0); Hemoglobin 10.1 g/dL (12.2-16.2); Lymphocytes # (auto) 1.1 10 ^3/uL (0.4-5.4); Lymphocytes % (auto) 25.2 % (10.0-50.0); Mean Corpuscular Hemoglobin 22.7 pg (28.0-32.0); Mean Corpuscular Hgb Conc. 31.6 g/dL (32.0-36.0); Mean Corpuscular Volume 71.9 fL (80.0-100.0); Monocytes # (auto) 0.5 10 ^3/uL (0-1.3); Monocytes % (auto) 11.6 % (0.0-12.0); Neutrophils # (auto) 2.5 10 ^3/uL (1.6-8.6); Neutrophils % (auto) 58.3 % (37.0-80.0); Nucleated Red Blood Cells % 0.1 %; Platelet Count (auto) 297 10^3/uL (140-450); Red Blood Cells 4.45 10^6/uL (4.0-5.20); White Blood Cell 4.3 10^3/uL (4.4-10.8)
[2024-05-24 07:06] LABS: Red Cell Distribution Width 21.5 % (11.8-14.3)
[2024-05-24 07:08] LABS: Anion Gap 5 (5-15); Carbon Dioxide 26 mmol/L (20-30); Chloride 107 mmol/L (98-107); Potassium 3.6 mmol/L (3.5-5.1); Sodium 138 mmol/L (136-145)
[2024-05-24 07:09] LABS: Calcium 8.2 mg/dL (8.7-10.4)
[2024-05-24 07:14] LABS: BUN/Creatinine Ratio 7.4 (10.0-20.0); Blood Urea Nitrogen 8 mg/dL (9-23); Glucose 91 mg/dL (74-106)
[2024-05-24] MEDS: cefTRIAXone 1GM/50ML D5W 50 ML IV SCH (09:20)
[2024-05-24] MEDS: HYDROcodone-ACET 5/325MG TAB PO PRN (09:21)
[2024-05-24 16:58] LABS: Amphetamine Screen, Urine Neg (NEGATIVE); Barbiturate Scree,Urine Neg (NEGATIVE); Benzodiazephine Screen, Urine Pos (NEGATIVE); Cannabinoid Screen, Urine Neg (NEGATIVE); Cocaine Screen, Urine Neg (NEGATIVE); Opiate Scree,Urine Pos (NEGATIVE); Phencyclidine Screen, Urine Neg (NEGATIVE)
[2024-05-25] VITALS (10 sets, daily range): BP systolic 125–178; BP diastolic 44–96; PULSE 61–86; RESP 17–21; TEMP 96.4–98.2; O2SAT 90–100
[2024-05-25] MEDS: PANTOPRAZOLE 40 MG TAB PO SCH (06:19)
[2024-05-25 11:32] LABS: Basophils # (auto) 0.1 10 ^3/uL (0-0.2); Basophils % (auto) 1.5 % (0.0-2.0); Eosinophils # (auto) 0.2 10 ^3/uL (0-0.8); Eosinophils % (auto) 3.8 % (0.0-7.0); Hematocrit 35.6 % (36.0-46.0); Hemoglobin 11.2 g/dL (12.2-16.2); Lymphocytes # (auto) 1.3 10 ^3/uL (0.4-5.4); Lymphocytes % (auto) 25.1 % (10.0-50.0); Mean Corpuscular Hemoglobin 22.6 pg (28.0-32.0); Mean Corpuscular Hgb Conc. 31.5 g/dL (32.0-36.0); Mean Corpuscular Volume 71.6 fL (80.0-100.0); Monocytes # (auto) 0.4 10 ^3/uL (0-1.3); Monocytes % (auto) 8.1 % (0.0-12.0); Neutrophils # (auto) 3.1 10 ^3/uL (1.6-8.6); Neutrophils % (auto) 61.5 % (37.0-80.0); Nucleated Red Blood Cells % 0.2 %; Platelet Count (auto) 334 10^3/uL (140-450); Red Blood Cells 4.97 10^6/uL (4.0-5.20); Red Cell Distribution Width 21.8 % (11.8-14.3); White Blood Cell 5.1 10^3/uL (4.4-10.8)
[2024-05-25 11:43] LABS: Chloride 103 mmol/L (98-107); Potassium 3.5 mmol/L (3.5-5.1); Sodium 136 mmol/L (136-145)
[2024-05-25 11:44] LABS: Anion Gap 7 (5-15); Carbon Dioxide 26 mmol/L (20-31)
[2024-05-25 11:45] LABS: Calcium 9.1 mg/dL (8.7-10.4)
[2024-05-25 11:50] LABS: Glucose 121 mg/dL (74-106)
[2024-05-25 11:53] LABS: BUN/Creatinine Ratio 5.7 (10.0-20.0); Blood Urea Nitrogen < 5 mg/dL (9-23)
[2024-05-25] MEDS: amLODIPine BESYLATE 5 MG TAB PO ONE (14:52)
[2024-05-25] MEDS: hydrALAZINE HCL 20 MG/ML VL IV PRN (14:54)
[2024-05-25] MEDS: METOCLOPRAMIDE HCL 10 MG TAB PO PRN (17:11)
[2024-05-26] VITALS (10 sets, daily range): BP systolic 121–162; BP diastolic 52–74; PULSE 18–101; RESP 16–94; TEMP 97.3–98.6; O2SAT 94–98
[2024-05-26 07:00] LABS: Basophils # (auto) 0.1 10 ^3/uL (0-0.2); Hemoglobin 10.6 g/dL (12.2-16.2); Lymphocytes # (auto) 1.5 10 ^3/uL (0.4-5.4); Mean Corpuscular Hemoglobin 22.8 pg (28.0-32.0); Mean Corpuscular Hgb Conc. 32.2 g/dL (32.0-36.0); Monocytes # (auto) 0.5 10 ^3/uL (0-1.3); Nucleated Red Blood Cells % 0.2 %
[2024-05-26 07:04] LABS: Basophils % (auto) 1.5 % (0.0-2.0); Eosinophils # (auto) 0.2 10 ^3/uL (0-0.8); Hematocrit 32.8 % (36.0-46.0); Lymphocytes % (auto) 30.9 % (10.0-50.0); Mean Corpuscular Volume 70.9 fL (80.0-100.0); Monocytes % (auto) 9.9 % (0.0-12.0); Neutrophils # (auto) 2.6 10 ^3/uL (1.6-8.6); Neutrophils % (auto) 53.7 % (37.0-80.0); Platelet Count (auto) 301 10^3/uL (140-450); Red Blood Cells 4.63 10^6/uL (4.0-5.20); Red Cell Distribution Width 21.4 % (11.8-14.3); White Blood Cell 4.8 10^3/uL (4.4-10.8)
[2024-05-26 07:13] LABS: Chloride 104 mmol/L (98-107); Sodium 137 mmol/L (136-145)
[2024-05-26 07:14] LABS: Anion Gap 9 (5-15); Carbon Dioxide 24 mmol/L (20-31)
[2024-05-26 07:19] LABS: Glucose 94 mg/dL (74-106)
[2024-05-26 07:27] LABS: BUN/Creatinine Ratio 6.8 (10.0-20.0); Blood Urea Nitrogen < 5 mg/dL (9-23)
[2024-05-26] MEDS: amLODIPine BESYLATE 5 MG TAB PO SCH (08:53)
[2024-05-26] MEDS: POTASSIUM CHL 20MEQ/100ML 100 ML IV SCH (10:14)
[2024-05-26] MEDS: FERROUS SULFATE 325mg EC TAB PO ONE (11:41)
[2024-05-26] MEDS ORDERED: PANT40T PO (15:01)
[2024-05-26] MEDS ORDERED: ZOFR4T PO (15:01)
[2024-05-26] MEDS ORDERED: MELO7.5T7 PO (15:02)
[2024-05-26] MEDS ORDERED: CEL100T PO (15:02)
[2024-05-26] MEDS: POTASSIUM EFFERVESENT TAB 25 MEQ PO ONE (18:18)
[2024-05-27] VITALS (9 sets, daily range): BP systolic 118–153; BP diastolic 50–65; PULSE 84–110; RESP 16–20; TEMP 97.8–99; O2SAT 92–95
[2024-05-27] MEDS ORDERED: LACTULOSE 20Gm/30ML SOLN PO PRN (13:00)
[2024-05-27] MEDS ORDERED: METOCLOPRAMIDE HCL 5MG/ml INJ 2ml VIAL IV SCH (14:00)
[2024-05-27] MEDS: METOCLOPRAMIDE 10 mg/10ml ORAL soln GT ONE (15:54)
[2024-05-27] MEDS: LACTULOSE 20Gm/30ML SOLN PO ONE (18:32)
[2024-05-27] MEDS: DOCUSATE SOD 100 MG CAP PO SCH (22:00)
[2024-05-27] MEDS: METOCLOPRAMIDE 10 mg/10ml ORAL soln GT SCH (22:01)
[2024-05-28] VITALS (8 sets, daily range): BP systolic 139–179; BP diastolic 56–71; PULSE 100–116; RESP 17–20; TEMP 97.9–99; O2SAT 95–98
[2024-05-28 07:47] LABS: Basophils # (auto) 0.1 10 ^3/uL (0-0.2); Eosinophils # (auto) 0.3 10 ^3/uL (0-0.8); Hematocrit 33.7 % (36.0-46.0); Hemoglobin 10.7 g/dL (12.2-16.2); Lymphocytes # (auto) 1.4 10 ^3/uL (0.4-5.4); Monocytes # (auto) 0.6 10 ^3/uL (0-1.3); White Blood Cell 4.5 10^3/uL (4.4-10.8)
[2024-05-28 07:49] LABS: Anion Gap 9 (5-15); Basophils % (auto) 2.1 % (0.0-2.0); Carbon Dioxide 25 mmol/L (20-31); Chloride 103 mmol/L (98-107); Eosinophils % (auto) 6.3 % (0.0-7.0); Lymphocytes % (auto) 31.5 % (10.0-50.0); Mean Corpuscular Hemoglobin 22.6 pg (28.0-32.0); Mean Corpuscular Hgb Conc. 31.7 g/dL (32.0-36.0); Mean Corpuscular Volume 71.2 fL (80.0-100.0); Monocytes % (auto) 12.7 % (0.0-12.0); Neutrophils # (auto) 2.1 10 ^3/uL (1.6-8.6); Neutrophils % (auto) 47.4 % (37.0-80.0); Nucleated Red Blood Cells % 0.1 %; Platelet Count (auto) 311 10^3/uL (140-450); Potassium 3.3 mmol/L (3.5-5.1); Red Blood Cells 4.72 10^6/uL (4.0-5.20); Red Cell Distribution Width 21.9 % (11.8-14.3); Sodium 137 mmol/L (136-145)
[2024-05-28 07:50] LABS: Calcium 9.1 mg/dL (8.7-10.4)
[2024-05-28 07:55] LABS: Glucose 96 mg/dL (74-106)
[2024-05-28 07:57] LABS: BUN/Creatinine Ratio 6.8 (10.0-20.0); Blood Urea Nitrogen < 5 mg/dL (9-23)
[2024-05-28] MEDS: POTASSIUM CHL 20MEQ/100ML 100 ML IV ONE (13:24)
[2024-05-29] VITALS (10 sets, daily range): BP systolic 101–158; BP diastolic 46–66; PULSE 59–121; RESP 16–18; TEMP 97.8–98.7; O2SAT 94–96
[2024-05-29 06:35] LABS: Chloride 101 mmol/L (98-107); Potassium 2.9 mmol/L (3.5-5.1); Sodium 133 mmol/L (136-145)
[2024-05-29 06:36] LABS: Anion Gap 7 (5-15); Calcium 8.5 mg/dL (8.7-10.4); Carbon Dioxide 25 mmol/L (20-31)
[2024-05-29 06:41] LABS: Glucose 107 mg/dL (74-106)
[2024-05-29 06:42] LABS: BUN/Creatinine Ratio 7.7 (10.0-20.0); Blood Urea Nitrogen < 5 mg/dL (9-23)
[2024-05-29 06:47] LABS: Basophils # (auto) 0.1 10 ^3/uL (0-0.2); Eosinophils # (auto) 0.3 10 ^3/uL (0-0.8); Lymphocytes # (auto) 1.1 10 ^3/uL (0.4-5.4); Monocytes # (auto) 0.7 10 ^3/uL (0-1.3); Nucleated Red Blood Cells % 0.1 %
[2024-05-29 07:00] LABS: Hematocrit 31.6 % (36.0-46.0); Hemoglobin 10.4 g/dL (12.2-16.2); Lymphocytes % (auto) 22.1 % (10.0-50.0); Mean Corpuscular Hemoglobin 23.5 pg (28.0-32.0); Mean Corpuscular Hgb Conc. 32.9 g/dL (32.0-36.0); Mean Corpuscular Volume 71.3 fL (80.0-100.0); Monocytes % (auto) 14.2 % (0.0-12.0); Neutrophils # (auto) 2.8 10 ^3/uL (1.6-8.6); Neutrophils % (auto) 55.7 % (37.0-80.0); Platelet Count (auto) 299 10^3/uL (140-450); Red Blood Cells 4.44 10^6/uL (4.0-5.20)
[2024-05-29 07:52] LABS: Red Cell Distribution Width 22.2 % (11.8-14.3)
[2024-05-29] MEDS: POTASSIUM EFFERVESENT TAB 25 MEQ PO ONE (08:33)
[2024-05-29] MEDS: POTASSIUM CHL 20MEQ/100ML 100 ML IV SCH (08:33)
[2024-05-29] MEDS: OMNIPAQUE 12mg/ml 500ml ORAL SOLUTION PO ONE ×2 (12:08)
[2024-05-29] MEDS: POTASSIUM CHL 20MEQ/100ML 100 ML IV ONE (16:43)
[2024-05-29] MEDS: SUCRALFATE 1 GM/10 ML ORAL SUSP PO SCH (17:00)
[2024-05-29] MEDS: SUCRALFATE 1 GM/10 ML ORAL SUSP PO ONE (18:13)
[2024-05-29] MEDS: Ensure HIGH Protein Chocolate 8oz Bottle PO SCH (18:14)
[2024-05-29] MEDS ORDERED: SUCRALFATE 1 GM/10 ML ORAL SUSP PO SCH (22:00)
== END 2024-05-29 22:47 | disposition home health service (06) | DRG 380 ==
LOC: EDBD 18:18 → ER 18:18 → OVERFLOW 22:07 → WEST WING 05-22 02:25
PROVIDERS: ADMIT Internal Medicine; ATTEND Internal Medicine
PROC: 0DB68ZX Excision of Stomach, Via Natural or Artificial Opening Endoscopic, Diagnostic (ICD-10-PCS; 2024-05-23)
PROC: 0DB48ZX Excision of Esophagogastric Junction, Via Natural or Artificial Opening Endoscopic, Diagnostic (ICD-10-PCS; 2024-05-23)
PROC: 0DB98ZX Excision of Duodenum, Via Natural or Artificial Opening Endoscopic, Diagnostic (ICD-10-PCS; principal; 2024-05-23 12:36)
DX: K22.10 Ulcer of esophagus without bleeding (principal); N17.0 Acute kidney failure with tubular necrosis; E87.1 Hypo-osmolality and hyponatremia; I50.22 Chronic systolic (congestive) heart failure; I13.0 Hypertensive heart and chronic kidney disease with heart failure and stage 1 through stage 4 chronic kidney disease, or unspecified chronic kidney disease; N39.0 Urinary tract infection, site not specified; K29.70 Gastritis, unspecified, without bleeding; E03.9 Hypothyroidism, unspecified; E78.5 Hyperlipidemia, unspecified; Z20.822 Contact with and (suspected) exposure to COVID-19; E87.6 Hypokalemia; D50.9 Iron deficiency anemia, unspecified; F41.9 Anxiety disorder, unspecified; E11.22 Type 2 diabetes mellitus with diabetic chronic kidney disease; N18.32 Chronic kidney disease, stage 3b; N28.1 Cyst of kidney, acquired; F03.90 Unspecified dementia, unspecified severity, without behavioral disturbance, psychotic disturbance, mood disturbance, and anxiety; M16.11 Unilateral primary osteoarthritis, right hip; K44.9 Diaphragmatic hernia without obstruction or gangrene; Z79.4 Long term (current) use of insulin
CPT/HCPCS: 36415; 71045; 73502; 74018; 74176; 74177; 76705; 80048; 80053; 80307; 81001; 82270; 82306; 82607; 82962; 83690; 83735; 83880; 83930; 83935; 84132; 84300; 84443; 84484; 85025; 85610; 85730; 86850; 86900; 86901; 87081; 87426; 87804; 92610; 93005; 97116; 97163; 97530; G0378; J1815; J2250; J2405; J2470; J2704; J3480; Q0162

== ENCOUNTER 2024-05-31 23:09 | Emergency (ER) | payer MEDICARE, OTHER ==
[~2024-05-31] VITALS: Ht 162.6 cm; Wt 90.0 kg
[~2024-05-31 23:09] MED LIST changes: +AMLO1TAB23 PO; +CEL100T PO; +CHOL20007 PO; -CYAN100056 PO; -CYAN1TAB11 PO; -FURO1TAB33 PO; -INSLANTI SC; -LEVO500T91 PO; -MELA5TAB16 PO; +MELO7.5T7 PO; -METO-158 PO; -OMEP-434 PO; -OXYB10GE TOP; -PRED20TA2 PO; -SITA50TA PO; +ZOFR4T PO
[2024-05-31 23:15] VITALS: PULSE 61; RESP 18; O2SAT 99
[2024-05-31] MEDS: DEXTROSE 50% SYRINGE 50 ML IV ONE (23:21)
[2024-05-31] MEDS: DEXTROSE (50%) 50ML SYRG IV ONE (23:22)
[2024-05-31 23:40] LABS: Basophils # (auto) 0.1 10 ^3/uL (0-0.2); Eosinophils # (auto) 0.4 10 ^3/uL (0-0.8); Hemoglobin 10.7 g/dL (12.2-16.2); Mean Corpuscular Hemoglobin 22.5 pg (28.0-32.0); Monocytes # (auto) 0.8 10 ^3/uL (0-1.3); Monocytes % (auto) 14.4 % (0.0-12.0); Neutrophils # (auto) 2.4 10 ^3/uL (1.6-8.6)
[2024-05-31 23:41] LABS: Basophils % (auto) 2.5 % (0.0-2.0); Eosinophils % (auto) 7.3 % (0.0-7.0); Lymphocytes # (auto) 1.7 10 ^3/uL (0.4-5.4); Lymphocytes % (auto) 30.7 % (10.0-50.0); Mean Corpuscular Hgb Conc. 31.4 g/dL (32.0-36.0); Mean Corpuscular Volume 71.7 fL (80.0-100.0); Neutrophils % (auto) 45.1 % (37.0-80.0); Nucleated Red Blood Cells % 0.2 %; Platelet Count (auto) 308 10^3/uL (140-450); Red Blood Cells 4.73 10^6/uL (4.0-5.20); White Blood Cell 5.4 10^3/uL (4.4-10.8)
[2024-05-31 23:47] LABS: Alanine Aminotransferase 22 U/L (7-40); Albumin 3.5 g/dL (3.2-4.8); Alkaline Phosphatase 66 U/L (46-116); Anion Gap 8 (5-15); Aspartate Aminotransferase 63 U/L (13-40); Calcium 8.7 mg/dL (8.7-10.4); Carbon Dioxide 23 mmol/L (20-31); Chloride 103 mmol/L (98-107); Glucose 55 mg/dL (74-106); Magnesium 1.5 mg/dL (1.6-2.6); Potassium 3.2 mmol/L (3.5-5.1); Sodium 134 mmol/L (136-145)
[2024-05-31 23:48] LABS: Bilirubin, Total 0.6 mg/dL (0.2-1.0); Total Protein 5.7 g/dL (5.7-8.2)
[2024-05-31 23:51] LABS: Blood Urea Nitrogen < 5 mg/dL (9-23)
[2024-06-01 01:25] VITALS: BP 111/59; PULSE 62; RESP 16; TEMP 98; O2SAT 97
[2024-06-01] MEDS: cefTRIAXone 1GM/50ML D5W 50 ML IV ONE (01:44)
[2024-06-01] MEDS: POTASSIUM CHL 20 Meq TABLET PO ONE (01:44)
[2024-06-01] MEDS: MAGNESIUM SULFATE 1GM/100ML 100 ML IV ONE (01:44)
== END 2024-06-01 02:43 | disposition home or self-care (01) ==
LOC: ER 23:09 → EDBD 23:09 → ER 06-01 02:43
DX: E11.649 Type 2 diabetes mellitus with hypoglycemia without coma (principal); E83.42 Hypomagnesemia; E87.6 Hypokalemia; I10 Essential (primary) hypertension; E78.5 Hyperlipidemia, unspecified; M19.90 Unspecified osteoarthritis, unspecified site; F41.9 Anxiety disorder, unspecified; Z79.899 Other long term (current) drug therapy; Z79.84 Long term (current) use of oral hypoglycemic drugs
CPT/HCPCS: 36415; 71045; 80053; 82962; 83605; 83735; 84484; 85025; 93005; 96365; 96368; 96375; 99285; J0696; J3475; J7042

== ENCOUNTER 2024-06-26 09:58 | Inpatient (IN) | payer MEDICARE, OTHER ==
[~2024-06-26] VITALS: Ht 162.6 cm; Wt 84.1 kg
[~2024-06-26 09:58] MED LIST changes: +ATOR-507 PO; +CHOL1TAB30 PO; +METO5TAB2 PO; +SITA50TA PO
[2024-06-26 10:20] VITALS: PULSE 82; RESP 16; O2SAT 95
[2024-06-26] MEDS: ONDANSETRON HCL 4 MG/2 ML VIAL IV ONE ×2 (10:28→12:32)
--- NOTE | 2024-06-26 11:38 | ED.PDOC ---
GI ASSESSMENT HPI Comments 83 year old female BIBA and accompanied by son presents to the ED with chief complaint of N/V and generalized weakness. Son reports that the patient has been experiencing nausea and vomiting for the past week, being unable to keep any food or drink down along with associated generalized weakness and diffuse abdominal pain. Son relays that the patient was recently admitted for the same symptoms and had an endoscopy performed by Dr. Bledsoe. Son states Dr. Bledsoe had prescribed the patient medication yesterday after being contacted, however, they have no provided it to the patient due to her continuing to vomit all fluids and food. Patient denies any fever, diarrhea, chills, dizziness, headache, SOB, or chest pain. Chief Complaint: General Weakness Time Seen by MD: 11:32 Primary Care Provider: PERRI Reviewed Notes: Nurses Notes, Medications, Allergies Allergies: Coded Allergies: NO KNOWN ALLERGIES (Unverified , 11/18/18) Home Meds Active Scripts Meloxicam (Meloxicam) 7.5 Mg Tab, 1 TAB PO DAILY, #30 TAB 1 Refill Prov:LIU COBURN MD 05/26/24 Celecoxib (CeleBREX CAPSULE) 100 Mg Cp, 1 CAP PO BID, #60 CAP 3 Refills Prov:LIU COBURN MD 05/26/24 Ondansetron Odt 4MG Tab (ZOFRAN PO) 4 Mg Tb, 4 MG PO TIDP PRN, #50 TAB ODT TAB-DISSOLVE IN MOUTH, THEN SWALLOW Prov:LIU COBURN MD 05/26/24 Pantoprazole Sodium Sesquihydr (Pantoprazole Sodium) 40 Mg Tab, 40 MG PO DAILY@0600 for 30 Days, #30 TAB Prov:LIU COBURN MD 05/26/24 Ergocalciferol (VITAMIN D 48895 UNIT) 50,000 [place], [address] UNIT PO Q7D for 60 Days, #10 CAP Prov:KRISTI MARTÍNEZ RESIDENT 03/20/24 Reported Medications Cholecalciferol (VITAMIN D3) 2,000 Unit Tab, 25 MCG PO DAILY, TAB 05/22/24 Amlodipine Besylate (Amlodipine Besylate) 10 Mg Tab, 1 TAB PO DAILY 05/22/24 Oxybutynin Chloride (Oxybutynin Chloride) 5 Mg Tab, 5 MG PO DAILY, TAB 05/15/24 Losartan Potassium (Losartan Potassium) 50 Mg Tab, 50 MG PO DAILY for 30 Days, MG 05/15/24 Sucralfate (Sucralfate) 1 Gm Tab, 1 GM PO BID, GM 05/15/24 Atorvastatin Calcium (ATORVASTATIN CALCIUM) 20 Mg Tab, 1 TAB PO DAILY, #30 TAB 5 Refills 05/15/24 Potassium Chloride (POTASSIUM CHLORIDE CR) 10 Meq Tb, 1 TAB PO DAILY, #30 TAB 5 Refills 05/15/24 Glipizide (Glipizide) 10 Mg Tab, 1 TAB PO BID, #60 TAB 5 Refills 05/15/24 Furosemide (Furosemide) 20 Mg Tab, 20 MG PO DAILY for 30 Days, MG 05/15/24 Citalopram Hydrobromide (Citalopram Hydrobromide) 20 Mg Tab, 20 MG PO DAILY for 30 Days, MG 05/15/24 Metoprolol Succinate (Metoprolol Succinate Er) 50 Mg Tab, 50 MG PO DAILY for 30 Days, MG 05/15/24 Levothyroxine Sodium (Levothyroxine Sodium) 25 Mcg Tab, 25 MCG PO QAM, MCG 03/18/24 Information Source: Patient, Relative (Son) Mode of Arrival: EMS Timing: Weeks Duration: Since onset Prehospital treatment: None Quality: Aching Vomitus: Watery Stool: Normal Severity: Moderate Recent: None Recent Hx of: None Pain Location: Diffuse Modifying Factors: Nothing Associated sign and symptoms: Nausea, Vomiting, Abdominal Pain Past Medical History PAST MEDICAL HISTORY: Anxiety, Arthritis, DM, High Lipids, HTN, Thyroid Surgical History: Denies all surgeries 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 Family History Family History: Reviewed,noncontributory to illness, Unknown Social History Smoker: Non-Smoker Alcohol: Denies ETOH Use Drugs: Denies Drug Use Lives In: Home Constitutional: reports: weakness; denies: chills, diaphoresis, fatigue, fever, malaise, sweats, others EENTM: denies: blurred vision, double vision, ear bleeding, ear discharge, ear drainage, ear pain, ear ringing, eye pain, eye redness, hearing loss, mouth pain, mouth swelling, nasal discharge, nose bleeding, nose congestion, nose pain, photophobia, tearing, throat pain, throat swelling, voice changes, others Respiratory: denies: cough, hemoptysis, orthopnea, SOB at rest, shortness of breath, SOB with excertion, stridor, wheezing, others Cardiovascular: denies: chest pain, dizzy spells, diaphoresis, Dyspnea on exertion, edema, irregular heart beat, left arm pain, lightheadedness, palpitations, PND, syncope, others Gastrointestinal: reports: abdominal pain, nausea, vomiting; denies: abdomen distended, blood streaked bowels, constipated, diarrhea, dysphagia, difficulty swallowing, hematemesis, melena, poor appetite, poor fluid intake, rectal bleeding, rectal pain, others Genitourinary: denies: abnormal vagina bleeding, burning, dyspareunia, dysuria, flank pain, frequency, hematuria, incontinence, pain, , vagina discharge, urgency, others Neurological: denies: dizziness, fainting, headache, left sided numbness, left sided weakness, numbness, paresthesia, pre-existing deficit, right sided numbne ss, right sided weakness, seizure, speech problems, tingling, tremors, weakness, others Musculoskeletal: denies: back pain, gout, joint pain, joint swelling, muscle pain, muscle stiffness, neck pain, others Integumetry: denies: bruises, change in color, change in hair/nails, dryness, laceration, lesions, lumps, rash, wounds, others Allergic/Immunocompromised: denies: Difficulty Healing, Frequent Infections, Hives, Itching, others Hematologic/Lymphatic: denies: anemia, blood clots, easy bleeding, easy bruising, swollen glands, others Endocrine: denies: excessive hunger, excessive sweating, excessive thirst, excessive urination, flushing, intolerance to cold, intolerance to heat, unexplained weight gain, unexplained weight loss, others Psychiatric: denies: anxiety, bipolar disorder, depression, hopeless, panic disorder, schizophrenia, sleepless, suicidal, others All Other Systems: Reviewed and Negative Physical Exam General Appearance: Normal, Other (Chronicaly ill appearing) HEENT: Normal ENT Inspection, PERRL/EOMI, Other (Dry mucous membranes) Neck: Full Range of Motion, Non-Tender, Normal, Normal Inspection Respiratory: Chest Non-Tender, Lungs Clear, No Accessory Muscle Use, No Respiratory Distress, Normal Breath Sounds Cardiovascular: No Edema, No JVD, No Murmur, No Gallop, Normal Peripheral Pulses, Regular Rate/Rhythm Breast Exam: Deferred Gastrointestinal: No Organomegaly, No Pulsatile Mass, Normal Bowel Sounds, Soft, Tenderness (Diffuse abdominal tenderness) Genitalia: Deferred Pelvic: Deferred Rectal: Deferred Extremities: No calf tenderness, Normal capillary refill, Normal inspection, Normal range of motion, Non-tender, No pedal edema Musculoskeletal : Apperance: Normal Neurologic: Alert, master chef II-XII nml as Tested, No Motor Deficits, Normal Affect, Normal Mood, No Sensory Deficits Cerebellar Function: Normal Reflexes: Normal Skin: Dry, Normal Color, Warm Lymphatic: No Adenopathy Was a procedure done? Was a procedure done?: No GI differential Dx Differential Diagnosis: Appendicitis, Cholangitis, Cholecystitis, Constipation, Ischemic Bowel, Pancreatitis, UTI, Electrolyte Imbalance, Food Poisoning, Bacterial, Viral, Mass, Anemia, Other X-Ray, Labs, Meds, VS Vital Signs Date Time Temp Pulse Resp B/P (MAP) Pulse Ox O2 Delivery O2 Flow Rate FiO2 06/26/24 12:30 98.4 78 19 136/49 (78) 97 98.4 06/26/24 11:00 88 13 125/38 (67) 95 06/26/24 10:23 96 24 154/64 (94) 95 06/26/24 10:20 82 16 95 Room Air* 0 21 06/26/24 10:04 98.0 72 20 154/92 (112) 96 06/26/24 10:02 76 Lab Test 06/26/24 12:49 06/26/24 12:07 06/26/24 11:40 Range/Units Troponin I High Sensitivity 4 5 </=34 ng/L Urine Color Light-yellow Yellow Urine Clarity Clear Clear Urine pH 5.5 5.0-9.0 Urine Specific [place] 1.006 1.001-1.035 Urine Protein Negative Negative Urine Ketones Negative Negative Urine Blood Negative Negative /uL Urine Nitrite 2+ H Negative Urine Bilirubin Negative Negative Urine Urobilinogen Normal Negative mg/dL Urine Leukocyte Esterase 3+ Negative /uL Urine RBC 2 0 - 4 /hpf Urine WBC 52 0 - 5 /hpf Urine Squamous Epithelial Cells None seen <5 /hpf Urine Bacteria Few H None Seen /hpf Urine Glucose Normal Normal mg/dL White Blood Count 3.8 L 4.4-10.8 10^3/uL Red Blood Count 4.55 4.0-5.20 10^6/uL Hemoglobin 10.7 L 12.2-16.2 g/dL Hematocrit 33.2 L 36.0-46.0 % Mean Corpuscular Volume 73.0 L 80.0-100.0 fL Mean Corpuscular Hemoglobin 23.5 L 28.0-32.0 pg Mean Corpuscular Hemoglobin Concent 32.2 32.0-36.0 g/dL Red Cell Distribution Width 19.8 H 11.8-14.3 % Platelet Count 208 140-450 10^3/uL Mean Platelet Volume 7.6 6.9-10.8 fL Neutrophils (%) (Auto) 42.2 37.0-80.0 % Lymphocytes (%) (Auto) 33.5 10.0-50.0 % Monocytes (%) (Auto) 15.2 H 0.0-12.0 % Eosinophils (%) (Auto) 7.9 H 0.0-7.0 % Basophils (%) (Auto) 1.2 0.0-2.0 % Neutrophils # (Auto) 1.6 1.6-8.6 10 ^3/uL Lymphocytes # (Auto) 1.3 0.4-5.4 10 ^3/uL Monocytes # (Auto) 0.6 0-1.3 10 ^3/uL Eosinophils # (Auto) 0.3 0-0.8 10 ^3/uL Basophils # (Auto) 0 0-0.2 10 ^3/uL Nucleated Red Blood Cells 0.0 % Sodium Level 127 L 136-145 mmol/L Potassium Level 4.1 3.5-5.1 mmol/L Chloride Level 96 L 98-107 mmol/L Carbon Dioxide Level 24 20-31 mmol/L Anion Gap 7 5-15 Blood Urea Nitrogen 8 L 9-23 mg/dL Creatinine 0.94 0.550-1.02 mg/dL Glomerular Filtration Rate Calc 60 >90 mL/min BUN/Creatinine Ratio 8.5 L 10.0-20.0 Serum Glucose 130 H 74-106 mg/dL Calcium Level 9.5 8.7-10.4 mg/dL Total Bilirubin 0.9 0.2-1.0 mg/dL Aspartate Amino Transferase (AST) 49 H 13-40 U/L Alanine Aminotransferase (ALT) 19 7-40 U/L Alkaline Phosphatase 57 46-116 U/L Total Protein 5.9 5.7-8.2 g/dL Albumin 3.6 3.2-4.8 g/dL Current Medications Medications (Trade) Dose Ordered Sig/[facility] Route Start Time Stop Time Status Last Admin Ondansetron HCl (Zofran) 4 mg ONCE ONCE IV 06/26/24 10:30 06/26/24 10:31 DC 06/26/24 10:28 Sodium Chloride 1,000 ml @ 1,000 mls/hr Q1H ONCE IV 06/26/24 11:45 06/26/24 12:44 DC 06/26/24 12:33 Ceftriaxone Sodium 50 ml @ 100 mls/hr ONCE ONCE IV 06/26/24 13:00 06/26/24 13:29 DC 06/26/24 13:18 Chest XR: FINDINGS: Lines and Tubes: None Lungs: Clear Pleura: No effusion. No pneumothorax. Cardiomediastinal contours: Unremarkable Bones: Unremarkable IMPRESSION: No acute disease. CT Abd/Pel w/ Con: Findings: Lung Bases: Nodule in the right middle lobe measuring up to 7mm similar to prior exam. Liver: The liver is normal in size. No focal lesions. Normal hepatic vascular enhancement. Gallbladder and biliary Tree: Unremarkable Spleen: Unremarkable Pancreas: The pancreas is normal in appearance without focal lesions or abnormal enhancement. Adrenal Glands: Unremarkable Kidneys: There are left renal cysts. No hydronephrosis or nephrolithiasis. Bladder: Bladder is decompressed with a Young catheter and cannot be adequately assessed. Bowel: The stomach is grossly normal in appearance. Small bowel and colon are normal in caliber and distribution. Normal appendix is visualized in the right lower quadrant without findings of appendicitis. Ascites: Absent Lymphadenopathy: No mesenteric, retroperitoneal or periportal lymphadenopathy. Abdominal wall and Mesentery: Unremarkable. Vasculature: The visualized abdominal aorta is normal in size and caliber. There is calcified atherosclerotic plaque involving the aorta and its branches. Abdominal and pelvic vessels demonstrate normal enhancement. Pelvic Organs: Unremarkable Musculoskeletal: Grade 1 anterolisthesis of L5 on S1 IMPRESSION: 1. No acute abdominal or pelvic finding. Left renal cysts. Degenerative changes in the spine. Calcified arthrosclerotic disease. Right middle lobe nodule measuring up to 7mm. Consider dedicated chest CT Images Reviewed?: Images reviewed and evaluated by me Time of 1ST Reevaluation: 12:32 Reevaluation 1ST: Unchanged Patient Education/Counseling: Diagnosis, Treatment Family Education/Counseling: Diagnosis, Treatment Departure 1 Departure Time of Disposition: 13:52 (Patient presented with abdominal pain that was concerning for possible appendicits, gastritis, cholecystitis, colitis, gastroenteritis, sbo, or orther possible surgical emergency. Data: 1. I ordered and reviewed the result of at least 3 labs including a CBC, BMP, and Urinalysis. 2. I independently interpreted the following tests: CT Abdoment and Pelvis is concerning for colitis _ .Risk:This patient has a high risk of morbidity due to further diagnostic testing or treatment and may suffer from an acute abdominal process disorder. Workup reveals UTI and patient should be admitted for further workup. and possible expert consultation. ) Impression: Primary Impression: Complicated urinary tract infection Additional Impressions: Projectile vomiting with nausea Intractable abdominal pain Disposition: ADMITTED INPATIENT Admit to: Med Surg Condition: Serious Critical Care Note Critical Care Time?: Yes Critical care comment: Severe abdominal pain Authorized and Performed by: Bryce Sorensen MD Total critical care time: Approximately 36 minutes Due to a high probability of clinically significant, life threatening deterioration, the patient required my highest level of preparedness to intervene emergently and I personally spent this critical care time directly and personally managing the patient. This critical care time included obtaining a history; examining the patient; pulse oximetry; ordering and review of studies; arranging urgent treatment with development of a management plan; evaluation of patient's response to treatment; frequent reassessment; and, discussions with other providers. This critical care time was performed to assess and manage the high probability of imminent, life-threatening deterioration that could result in multi-organ failure. It was exclusive of separately billable procedures and treating other patients and teaching time. Please see my other sections and the rest of the note for further information on patient assessment and treatment. Stability Stability form required: No Heart Score Heart Score: Heart Score Response (Comments) Value History N/A 0 EKG N/A 0 Age N/A 0 Risk Factors N/A 0 Troponin N/A 0 Total 0 I personally scribed for BRYCE SORENSEN MD ([email or web address]) on 06/26/24 at 11:38. Electronically submitted by Janes Steel ([email or web address]). I personally scribed for BRYCE SORENSEN MD ([email or web address]) on 06/26/24 at 13:32. Electronically submitted by Janes Steel ([email or web address]). I personally scribed for BRYCE SORENSEN MD ([email or web address]) on 06/26/24 at 13:42. Electronically submitted by Janes Steel ([email or web address]). BRYCE SORENSEN MD Jun 26, 2024 11:38
[2024-06-26] MEDS: IOHEXOL 300 MG/ML 100ML BOTTLE IJ ONE (11:50)
[2024-06-26 11:52] LABS: Basophils # (auto) 0 10 ^3/uL (0-0.2); Eosinophils # (auto) 0.3 10 ^3/uL (0-0.8); Lymphocytes # (auto) 1.3 10 ^3/uL (0.4-5.4); Monocytes # (auto) 0.6 10 ^3/uL (0-1.3)
[2024-06-26 11:54] LABS: Basophils % (auto) 1.2 % (0.0-2.0); Eosinophils % (auto) 7.9 % (0.0-7.0); Hematocrit 33.2 % (36.0-46.0); Hemoglobin 10.7 g/dL (12.2-16.2); Lymphocytes % (auto) 33.5 % (10.0-50.0); Mean Corpuscular Hemoglobin 23.5 pg (28.0-32.0); Mean Corpuscular Hgb Conc. 32.2 g/dL (32.0-36.0); Monocytes % (auto) 15.2 % (0.0-12.0); Neutrophils # (auto) 1.6 10 ^3/uL (1.6-8.6); Neutrophils % (auto) 42.2 % (37.0-80.0); Platelet Count (auto) 208 10^3/uL (140-450); Red Blood Cells 4.55 10^6/uL (4.0-5.20); Red Cell Distribution Width 19.8 % (11.8-14.3); White Blood Cell 3.8 10^3/uL (4.4-10.8)
[2024-06-26 12:09] LABS: Alanine Aminotransferase 19 U/L (7-40); Albumin 3.6 g/dL (3.2-4.8); Alkaline Phosphatase 57 U/L (46-116); Anion Gap 7 (5-15); Aspartate Aminotransferase 49 U/L (13-40); BUN/Creatinine Ratio 8.5 (10.0-20.0); Blood Urea Nitrogen 8 mg/dL (9-23); Calcium 9.5 mg/dL (8.7-10.4); Carbon Dioxide 24 mmol/L (20-31); Chloride 96 mmol/L (98-107); Glucose 130 mg/dL (74-106); Potassium 4.1 mmol/L (3.5-5.1); Sodium 127 mmol/L (136-145)
[2024-06-26 12:10] LABS: Bilirubin, Total 0.9 mg/dL (0.2-1.0); Total Protein 5.9 g/dL (5.7-8.2)
[2024-06-26 12:23] LABS: Urine Bacteria FEW /hpf (None Seen); Urine Blood Negative /uL (Negative); Urine Clarity Clear (Clear); Urine Color Light-Yellow (Yellow); Urine Protein, UAD Negative (Negative); Urine Specific Gravity 1.006 (1.001-1.035); Urine Urobilinogen Normal (Negative); Urine WBC 52 /hpf (0 - 5); Urine pH 5.5 (5.0-9.0)
[2024-06-26] MEDS: MORPHINE SULFATE 4 MG/ML SYR/VIAL IV ONE (12:32)
[2024-06-26] MEDS: SODIUM CHLORIDE 0.9% 1,000 ML IV ONE (12:33)
[2024-06-26] MEDS: cefTRIAXone 1GM/50ML D5W 50 ML IV ONE (13:18)
--- NOTE | 2024-06-26 13:19 | DVH ---
CHEST RADIOGRAPH Indication:epigastric pain Technique: Single frontal view of the chest was obtained COMPARISON: XY CHEST PORTABLE on DOS: 05/31/24, XY CHEST PORTABLE on DOS: 05/23/24, XY CHEST XRAY 1 VIE W on DOS: 05/21/24 FINDINGS: Lines and Tubes: None Lungs: Clear Pleura: No effusion. No pneumothorax. Cardiomediastinal contours: Unremarkable Bones: Unremarkable IMPRESSION: No acute disease.
--- NOTE | 2024-06-26 13:37 | DVH ---
Exam: CT CT AB PEL WITH IV CON ONLY History: abdominal pain inability to tolerate po COMPARISON: CT CT ABD PELVIS W CON-ORAL IV on DOS: 05/28/24, CT CT AB PEL WO CON-NO ORAL OR IV on DO S: 05/21/24, CT CT AB PEL WO CON-NO ORAL OR IV on DOS: 05/14/24 Technique: Multidetector spiral CT of the abdomen and pelvis was performed from lung bases to pubic symphysis. Intravenous contrast was administered during this examination. Portal venous imaging was obtained. Axial, coronal and sagittal multiplanar reformats were performed by the technologist on a separate workstation. Radiation Dose : Abdomen/Pelvis: CTDIvol 16.68 mGy, DLP 886.8 mGy*cm. CONTRAST: Type of contrast: Omni 300 Contrast injected: 100 mL Findings: Lung Bases: Nodule in the right middle lobe measuring up to 7mm similar to prior exam. Liver: The liver is normal in size. No focal lesions. Normal hepatic vascular enhancement. Gallbladder and biliary Tree: Unremarkable Spleen: Unremarkable Pancreas: The pancreas is normal in appearance without focal lesions or abnormal enhancement. Adrenal Glands: Unremarkable Kidneys: There are left renal cysts. No hydronephrosis or nephrolithiasis. Bladder: Bladder is decompressed with a Young catheter and cannot be adequately assessed. Bowel: The stomach is grossly normal in appearance. Small bowel and colon are normal in caliber and d istribution. Normal appendix is visualized in the right lower quadrant without findings of appendici tis. Ascites: Absent Lymphadenopathy: No mesenteric, retroperitoneal or periportal lymphadenopathy. Abdominal wall and Mesentery: Unremarkable. Vasculature: The visualized abdominal aorta is normal in size and caliber. There is calcified atheros clerotic plaque involving the aorta and its branches. Abdominal and pelvic vessels demonstrate normal enhancement. Pelvic Organs: Unremarkable Musculoskeletal: Grade 1 anterolisthesis of L5 on S1 IMPRESSION: 1. No acute abdominal or pelvic finding. Left renal cysts. Degenerative changes in the spine. Calcifi ed arthrosclerotic disease. Right middle lobe nodule measuring up to 7mm. Consider dedicated chest CT Radiation optimization: All CT scans at this facility use at least one of these dose optimization bella hniques: Automated exposure control mA and/or kV adjustment per patient size (includes targeted exams where dose is matched to clinical indication) or iterative reconstruction. HS:Y
[2024-06-26] MEDS ORDERED: HYDROcodone-ACET 5/325MG TAB PO PRN (15:00)
[2024-06-26] MEDS ORDERED: DOCUSATE SOD 100 MG CAP PO PRN (15:00)
[2024-06-26] MEDS ORDERED: ACETAMINOPHEN 325 MG TAB PO PRN (15:00)
[2024-06-26] MEDS ORDERED: DEXTROSE (50%) 50ML SYRG IV PRN (15:00)
[2024-06-26] MEDS: SODIUM CHLORIDE 0.9% 1,000 ML IV SCH (15:42)
--- NOTE | 2024-06-26 15:51 | DVHHP2 ---
History of Present Illness Reason for Visit: Generalized weakness History of Present Illness The patient is a 83-year-old female with multiple past medical history including DM, arthritis, and hypertension who presented to [facility] ED with complaint generalized weakness. Son reports patient's symptoms progressively get worse with diffuse abdominal pain, associated nausea, vomiting, unable to keep any food or drink down, getting worse that prompted this visit. Son reports that the patient was recently admitted for the same symptoms and had an endoscopy performed by Dr. Bledsoe. Dr. Bledsoe had prescribed the patient medication yesterday after being contacted, however, they have not provided it to the patient due to her persistent vomiting. Patient was seen and evaluated in the ED, laboratory data shows WBC 3.8, hemoglobin 10.7, hematocrit 33.2, platelets 208, sodium 127, potassium 4.1, BUN 8, creatinine 0.94, glucose 130, AST 49, ALT 19, troponin 5, blood pressure 136/49, heart rate 78, temperature 98.4 F, O2 saturation 97% on room air. Abdomen/pelvis CT showed no acute abdominal or pelvic finding; left renal cyst, degenerative changes in the spine, calcified atherosclerotic disease, right middle lobe nodules measuring up to 7 mm. Urinalysis positive for urinary tract infection. Patient was started on IV antibiotic regimen Rocephin, please see medication orders section in the computer. On my assessment, patient's son at bedside, denies chest pain, no headache, no dizziness, no shortness of breath, no nausea or vomiting at this moment, no fever, no chills. Patient was admitted for further evaluation and medical management. Past Medical History Anxiety, Arthritis, DM, High Lipids, HTN, Thyroid Past Surgical History Endoscopy by Dr. Bledsoe Family History Reviewed, noncontributory to the management of this case. Past Social History The patient lives at home, denies smoking, alcohol or illicit drugs abuse. Review of Systems Constitutional: Yes: Weakness; No: Fever, Chills, Sweats, Malaise, Other Eyes: No: Pain, Vision change, Conjunctivae inflammation, Eyelid inflammation, Other, Redness ENT: No: Ear pain, Ear discharge, Nose pain, Nose discharge, Nose congestion, Mouth pain, Mouth swelling, Throat pain, Throat swelling, Other Respiratory: No: Cough, Dry, Shortness of breath, SOB with excertion, Wheezing, Hemoptysis, Pleuritic Pain, Sputum, Wheezing, Other Cardiovascular: No: Chest Pain, Palpitations, Orthopnea, Paroxysmal Noc. Dyspnea, Edema, Lt Headedness, Other Gastrointestinal: Nausea, Vomiting, Abdominal Pain; No: Diarrhea, Constipation, Melena, Hematochezia, Other Genitourinary: No Dysuria, No Frequency, No Incontinence, No Hematuria, No Retention, No Other Musculoskeletal: No: other, neck pain, shoulder pain, arm pain, back pain, hand pain, leg pain, foot pain Skin: No: Rash, Lesions, Jaundice, Bruising, Other Neurological: No: Weakness, Numbness, Incoordination, Change in speech, Confusion, Seizures, Other Allergies: Coded Allergies: NO KNOWN ALLERGIES (Unverified , 11/18/18) Medications Current Medications Medications Dose Ordered Sig/Pan Route Start Time Stop Time Status Last Admin Dose Admin Ceftriaxone Sodium 50 ml @ 100 mls/hr DAILY@09 IV 06/27/24 09:00 Hydralazine HCl 10 mg Q6HP PRN IV 06/26/24 15:00 Levothyroxine Sodium 25 mcg QAM@0600 PO 06/27/24 06:00 Diagnostic Test (Pha) 1 strip ACHS 06/26/24 17:00 Insulin Human Regular ACHS SC 06/26/24 17:00 Dextrose 50 ml UD PRN IV 06/26/24 15:00 Sodium Chloride 1,000 ml @ 60 mls/hr [id number] IV 06/26/24 15:00 06/26/24 15:42 60 MLS/HR Acetaminophen/ Hydrocodone Bitart 1 tab Q4HP PRN PO 06/26/24 15:00 Ondansetron HCl 4 mg Q4HP PRN IV 06/26/24 15:00 Docusate Sodium 100 mg BIDPRN PRN PO 06/26/24 15:00 Acetaminophen 650 mg Q6HP PRN PO 06/26/24 15:00 Famotidine 20 mg DAILY IV 06/27/24 10:00 Exam Vital Signs Vital Signs Date Time Temp Pulse Resp B/P (MAP) Pulse Ox O2 Delivery O2 Flow Rate FiO2 06/26/24 12:30 98.4 78 19 136/49 (78) 97 98.4 06/26/24 10:20 Room Air* 0 21 General Appearance: Alert, Oriented X3, Cooperative, No acute distress HEENT: Atraumatic, PERRLA, EOMI, Mucous membr. moist/pink Respiratory: Clear to auscultation, Normal air movement Cardiovascular: Regular rate, Normal S1, Normal S2, No murmurs Abdominal: Normal bowel sounds, Soft, No tenderness, No hepatospenomegaly, No masses Extremities: No clubbing, No cyanosis, No edema, Normal pulses, No tenderness/swelling Skin: No rashes, No breakdown, No significant lesion Neuro: Normal speech, Normal tone, Sensation intact, Cranial nerves 3-12 NL, Reflexes 2+, Other (Generalized weakness) Psych/Mental Status: Mental status NL, Mood NL Labs/Xrays Labs Test 06/26/24 14:38 06/26/24 12:07 06/26/24 11:40 Range/Units Troponin I High Sensitivity 6 </=34 ng/L Thyroid Stimulating Hormone (TSH) 2.06 0.55-4.78 uIU/mL Urine Color Light-yellow Yellow Urine Clarity Clear Clear Urine pH 5.5 5.0-9.0 Urine Specific Chancellor 1.006 1.001-1.035 Urine Protein Negative Negative Urine Ketones Negative Negative Urine Blood Negative Negative /uL Urine Nitrite 2+ H Negative Urine Bilirubin Negative Negative Urine Urobilinogen Normal Negative mg/dL Urine Leukocyte Esterase 3+ Negative /uL Urine RBC 2 0 - 4 /hpf Urine WBC 52 0 - 5 /hpf Urine Squamous Epithelial Cells None seen <5 /hpf Urine Bacteria Few H None Seen /hpf Urine Glucose Normal Normal mg/dL White Blood Count 3.8 L 4.4-10.8 10^3/uL Red Blood Count 4.55 4.0-5.20 10^6/uL Hemoglobin 10.7 L 12.2-16.2 g/dL Hematocrit 33.2 L 36.0-46.0 % Mean Corpuscular Volume 73.0 L 80.0-100.0 fL Mean Corpuscular Hemoglobin 23.5 L 28.0-32.0 pg Mean Corpuscular Hemoglobin Concent 32.2 32.0-36.0 g/dL Red Cell Distribution Width 19.8 H 11.8-14.3 % Platelet Count 208 140-450 10^3/uL Mean Platelet Volume 7.6 6.9-10.8 fL Neutrophils (%) (Auto) 42.2 37.0-80.0 % Lymphocytes (%) (Auto) 33.5 10.0-50.0 % Monocytes (%) (Auto) 15.2 H 0.0-12.0 % Eosinophils (%) (Auto) 7.9 H 0.0-7.0 % Basophils (%) (Auto) 1.2 0.0-2.0 % Neutrophils # (Auto) 1.6 1.6-8.6 10 ^3/uL Lymphocytes # (Auto) 1.3 0.4-5.4 10 ^3/uL Monocytes # (Auto) 0.6 0-1.3 10 ^3/uL Eosinophils # (Auto) 0.3 0-0.8 10 ^3/uL Basophils # (Auto) 0 0-0.2 10 ^3/uL Nucleated Red Blood Cells 0.0 % Sodium Level 127 L 136-145 mmol/L Potassium Level 4.1 3.5-5.1 mmol/L Chloride Level 96 L 98-107 mmol/L Carbon Dioxide Level 24 20-31 mmol/L Anion Gap 7 5-15 Blood Urea Nitrogen 8 L 9-23 mg/dL Creatinine 0.94 0.550-1.02 mg/dL Glomerular Filtration Rate Calc 60 >90 mL/min BUN/Creatinine Ratio 8.5 L 10.0-20.0 Serum Glucose 130 H 74-106 mg/dL Calcium Level 9.5 8.7-10.4 mg/dL Total Bilirubin 0.9 0.2-1.0 mg/dL Aspartate Amino Transferase (AST) 49 H 13-40 U/L Alanine Aminotransferase (ALT) 19 7-40 U/L Alkaline Phosphatase 57 46-116 U/L Total Protein 5.9 5.7-8.2 g/dL Albumin 3.6 3.2-4.8 g/dL PATIENT: DANA GONSALEZ ACCT: [id number] UNIT: [id number] : 1940 LOC: ER ROOM / BED: / AGE / SEX: 83 / F ADM STATUS: REG ER SERVICE 1131 ORDERING PHYSICIAN: BRYCE LUCAS MD PROCEDURE(s): ABPLIV - CT AB PEL WITH IV CON ONLY REASON: abdominal pain inability to tolerate po ORDER NUMBER(s): [id number], ACCESSION NUMBER(s): [id number] Exam: CT CT AB PEL WITH IV CON ONLY History: abdominal pain inability to tolerate po COMPARISON: CT CT ABD PELVIS W CON-ORAL IV on DOS: 05/28/24, CT CT AB PEL WO CON-NO ORAL OR IV on DOS: 05/21/24, CT CT AB PEL WO CON-NO ORAL OR IV on DOS: 05/14/24 Technique: Multidetector spiral CT of the abdomen and pelvis was performed from lung bases to pubic symphysis. Intravenous contrast was administered during this examination. Portal venous imaging was obtained. Axial, coronal and sagittal multiplanar reformats were performed by the technologist on a separate workstation. Radiation Dose: Abdomen/Pelvis: CTDIvol 16.68 mGy, DLP 886.8 mGy*cm. CONTRAST: Type of contrast: Omni 300 Contrast injected: 100 mL Findings: Lung Bases: Nodule in the right middle lobe measuring up to 7mm similar to prior exam. Liver: The liver is normal in size. No focal lesions. Normal hepatic vascular enhancement. Gallbladder and biliary Tree: Unremarkable Spleen: Unremarkable Pancreas: The pancreas is normal in appearance without focal lesions or abnormal enhancement. Adrenal Glands: Unremarkable Kidneys: There are left renal cysts. No hydronephrosis or nephrolithiasis. Bladder: Bladder is decompressed with a Young catheter and cannot be adequately assessed. Bowel: The stomach is grossly normal in appearance. Small bowel and colon are normal in caliber and distribution. Normal appendix is visualized in the right lower quadrant without findings of appendicitis. Ascites: Absent Lymphadenopathy: No mesenteric, retroperitoneal or periportal lymphadenopathy. Abdominal wall and Mesentery: Unremarkable. Vasculature: The visualized abdominal aorta is normal in size and caliber. There is calcified atherosclerotic plaque involving the aorta and its branches. Abdominal and pelvic vessels demonstrate normal enhancement. Pelvic Organs: Unremarkable Musculoskeletal: Grade 1 anterolisthesis of L5 on S1 IMPRESSION: 1. No acute abdominal or pelvic finding. Left renal cysts. Degenerative changes in the spine. Calcified arthrosclerotic disease. Right middle lobe nodule measuring up to 7mm. Consider dedicated chest CT ORDERING PHYSICIAN: BRYCE LUCAS MD PROCEDURE(s): CXRP - CHEST PORTABLE REASON: epigastric pain ORDER NUMBER(s): [id number], ACCESSION NUMBER(s): [id number] CHEST RADIOGRAPH Indication:epigastric pain Technique: Single frontal view of the chest was obtained COMPARISON: XY CHEST PORTABLE on DOS: 05/31/24, XY CHEST PORTABLE on DOS: 05/23/24, XY CHEST XRAY 1 VIEW on DOS: 05/21/24 FINDINGS: Lines and Tubes: None Lungs: Clear Pleura: No effusion. No pneumothorax. Cardiomediastinal contours: Unremarkable Bones: Unremarkable IMPRESSION: No acute disease. Assessment/Plan Assessment/Plan Hyponatremia Diabetes mellitus with hyperglycemia Complicated urinary tract infection Projectile vomiting with nausea Intractable abdominal pain Generalized weakness Plan 1. Admit to telemetry unit 2. Breathing treatment 3. Pain control management 4. IV antibiotic management 5. Management of fluids and electrolytes 6. Consultation for hospitalist 7. Diagnostic test abdomen/pelvis CT 8. DVT prophylaxis on SCDs 9. Repeat labs CBC, CMP in a.m. 10. Home medication reviewed and reconciled 11. Continue with current medical management 12. Treatment plan discussed with patient and RN. Patient verbalized understanding. Plan discussed with: Patient, Son (At bedside), Other (RN) My Orders Orders - JENI GUTIERREZ DNP Procedure Category Date Status Time Consistent DIET 06/26/24 Transmitted Carb(Ccho)Diabetes Dinner Ceftriaxone 1gm/50ml PHA 06/27/24 In Process D5w (Rocephin) 09:00 Hydralazine Injection PHA 06/26/24 In Process (Apresoline Inject 15:00 Levothyroxine Tablet PHA 06/27/24 In Process (Synthroid Tablet) 06:00 Glucose Blood PHA 06/26/24 In Process (Accu-Chek Comfort 17:00 Insulin R (Human) PHA 06/26/24 In Process (Insulin R) 17:00 Dextrose 50% Syringe PHA 06/26/24 In Process 15:00 Allergies ABELARDO 06/26/24 In Process 14:57 Code Status CODE 06/26/24 Transmitted 14:57 Sodium Chloride 0.9% PHA 06/26/24 In Process 15:00 Oxygen Per Hour RT 06/26/24 Transmitted 14:57 Hydrocodone-Acet PHA 06/26/24 In Process 5/325mg Tab ([place]coe 15:00 Ondansetron Hcl PHA 06/26/24 In Process (Zofran) 15:00 Docusate Sodium PHA 06/26/24 In Process Capsule (Colace 15:00 Fall Risk Precautions ABELARDO 06/26/[address] 14:57 Complete Blood Count LAB 06/27/24 Verified 04:00 Comprehensive LAB 06/27/24 Verified Metabolic Panel 04:00 Condition: Serious ABELARDO 06/26/24 In Process 14:57 Acetaminophen Tablet PHA 06/26/24 In Process (Tylenol Tablet) 15:00 Sequential ABELARDO 06/26/24 In Process Compression Device Famotidine Injection PHA 06/27/24 In Process (Pepcid Injection) 10:00 Problem List: (1) Hyponatremia (2) Complicated urinary tract infection (3) Intractable abdominal pain (4) Projectile vomiting with nausea (5) Diabetes mellitus with hyperglycemia (6) Generalized weakness Date of Service: Jun 26, 2024 Billing Provider: JENI GUTIERREZ DNP Common Visit Codes: [id number] INP/OBS CARE (HIGH) JENI GUTIERREZ DNP Jun 26, 2024 15:51
[2024-06-26] MEDS ORDERED: MORPHINE SULFATE INJ 2 MG/ml SYRG IV PRN (16:00)
[2024-06-26] MEDS ORDERED: NITROGLYCERIN 0.4 MG SL TAB SL PRN (16:00)
[2024-06-26] MEDS: ACCU-CHEK COMFORT CURVE STRIP VI SCH (17:26)
[2024-06-26] MEDS: InsuLIN REG 1unit/0.01ml Soln (100units/ml) SC SCH (17:26)
--- NOTE | 2024-06-26 19:38 | ECG ---
[facility] Test Date: 2024-06-26 Test Time: 10:02:05 Pat Name: DANA GONSALEZ Department: ER Room: 0278 Gender: F Inspector Technician: LUCERO : 1940 Requested By: CONTRERAS WISEMAN Order Number: [id number] Reading MD: Rosendo Coronado Measurements Intervals Adams Rate: 76 P: 26 IA: 217 QRS: -7 QRSD: 77 T: 29 QT: 406 QTc: 457 Interpretive Statements Sinus rhythm Consider left atrial enlargement LVH by voltage Electronically Signed On 06-28-2024 14:38:39 PDT by Rosendo Coronado Please click the below link to view image of tracing.
[2024-06-26 19:50] VITALS: PULSE 82; RESP 16; O2SAT 95
[2024-06-26 22:00] VITALS: BP 115/57; PULSE 92; RESP 17; TEMP 98.1; O2SAT 97
[2024-06-26 22:33] VITALS: BP 115/56; PULSE 92; PULSE 96; RESP 17; TEMP 98.1; O2SAT 97
[2024-06-27 01:00] VITALS: BP 135/56; PULSE 89; RESP 17; TEMP 98.3; O2SAT 95
[2024-06-27 05:00] VITALS: BP 117/61; PULSE 85; RESP 17; TEMP 98.3; O2SAT 92
[2024-06-27] MEDS: LEVOTHYROXINE SODIUM 25 MCG TAB PO SCH (05:35)
[2024-06-27 07:13] LABS: Hemoglobin 9.9 g/dL (12.2-16.2)
[2024-06-27 07:15] LABS: Hematocrit 31.5 % (36.0-46.0); Mean Corpuscular Hemoglobin 23.1 pg (28.0-32.0); Mean Corpuscular Hgb Conc. 31.6 g/dL (32.0-36.0); Mean Corpuscular Volume 73.4 fL (80.0-100.0); Platelet Count (auto) 191 10^3/uL (140-450); Red Blood Cells 4.29 10^6/uL (4.0-5.20); Red Cell Distribution Width 19.4 % (11.8-14.3); White Blood Cell 3.3 10^3/uL (4.4-10.8)
[2024-06-27 07:22] LABS: Alanine Aminotransferase 16 U/L (7-40); Alkaline Phosphatase 52 U/L (46-116); Anion Gap 8 (5-15); BUN/Creatinine Ratio 8.5 (10.0-20.0); Blood Urea Nitrogen 7 mg/dL (9-23); Calcium 8.8 mg/dL (8.7-10.4); Carbon Dioxide 21 mmol/L (20-31); Chloride 102 mmol/L (98-107); Glucose 115 mg/dL (74-106); Potassium 3.9 mmol/L (3.5-5.1); Sodium 131 mmol/L (136-145)
[2024-06-27 07:23] LABS: Albumin 3.3 g/dL (3.2-4.8); Aspartate Aminotransferase 37 U/L (13-40)
[2024-06-27 07:24] LABS: Bilirubin, Total 0.6 mg/dL (0.2-1.0); Total Protein 5.1 g/dL (5.7-8.2)
[2024-06-27 07:29] LABS: Band Neutrophils % (manual) 0; Basophils % (manual) 0 (0.0-2.0); Blast Cells 0; Metamyelocytes % 0; Myelocytes % 0; Promyelocytes % 0; Reactive Lymphocytes 0
[2024-06-27 08:00] VITALS: PULSE 84; RESP 18; O2SAT 93
[2024-06-27 08:39] VITALS: BP 122/56; PULSE 89; RESP 18; TEMP 98.3; O2SAT 94
[2024-06-27] MEDS: cefTRIAXone 1GM/50ML D5W 50 ML IV SCH (09:09)
[2024-06-27] MEDS: FAMOTIDINE (10MG/ML) 2ML VL IV SCH (09:09)
[2024-06-27] MEDS: ONDANSETRON HCL 4 MG/2 ML VIAL IV PRN (09:37)
[2024-06-27 10:05] LABS: Eosinophils % (manual) 5 (0-7); Lymphocytes % (manual) 52 (10.0-50.0); Monocytes % (manual) 1 (0-12); Platelet Estimate Adequate
--- NOTE | 2024-06-27 10:39 | DVHPNRES ---
Progress Note Date Seen: Jun 27, 2024 Resident Creating Document: RICARDO العراقي RESIDENT Medical Necessity Reason Pt with a Central, PICC or Fol: Yes The following are medically ne: Young Catheter Subjective Review of Systems Patient is a year old female with past medical history of osteoarthritis, type 2 diabetes, dyslipidemia, thyroid disease, hypertension, dementia new in onset as reported by the family, heart failure with reduced ejection fraction 45%, left buttock skin tear, hypothyroidism, who came in due to generalized weakness accompanied with nausea, and vomiting. Patient has had similar episodes in the past with hospitalization twice in the past for similar episodes. Per patient's son, she is unable to keep any food or liquids down and ends up vomiting anything she tries to eat. Patient has completed workup for diabetic gastroparesis that came back negative, CT scan of the abdomen with and without contrast during previous hospitalizations also came back negative, patient completed an EGD during last hospitalization which was largely unremarkable except mild gastritis and erosive esophagitis. Serum sodium is 131, UA shows 2+ nitrites, 3+ leukocyte esterase, 52 WBCs and few bacteria. Patient is started on IV NS at 60 cc/hour and IV ceftriaxone. Past surgical history: Denies Home medications: Atorvastatin, furosemide, Past Hospitalization:Discharged May 28, 2024 from the [facility] for similar complaints of nausea and vomiting Social & Personal history: Lives with her son in [place]. Denies using tobacco, alcohol, drugs. Allergies: Denies Patient seen and examined at bedside. Patient is alert and oriented to time, place person and responding to all questions. General: Reports fatigue, headaches Eyes: No Pain, No Vision change, No Conjunctivae inflammation, No Eyelid inflammation, No Other, No Redness ENT: No Ear pain, No Ear discharge, No Nose pain, No Nose discharge, No Nose congestion, No Mouth pain, No Mouth swelling, No Throat pain, No Throat swelling, No Other Cardiovascular: No Chest Pain, No Palpitations, No Orthopnea, No Paroxysmal No Dyspnea, No Edema, No Lt Headedness, No Other Respiratory: No Cough, No Dry, Shortness of breath, SOB with exertion, No Wheezing, No Hemoptysis, No Pleuritic Pain, No Sputum, No Other Gastrointestinal: No Nausea, Vomiting, No Abdominal Pain, No Diarrhea, No Constipation, No Melena, No Hematochezia, No Other Genitourinary: Dysuria, No Frequency, No Incontinence, No Hematuria, No Retention, No Other Musculoskeletal: No other, No neck pain, No shoulder pain, No arm pain, No back pain, No hand pain, No leg pain, reports bilateral feet burning Skin: No Rash, No Lesions, No Jaundice, No Bruising, No Other Neurologic: Reports weakness, dizziness Objective vital signs Vital Sign Date Time Temp Pulse Resp B/P (MAP) Pulse Ox O2 Delivery O2 Flow Rate FiO2 06/27/24 08:39 98.3 89 18 122/56 (78) 94 98.3 06/26/24 22:33 Room Air* 0 21 Total Intake and Output 06/26/24 06/26/24 06/27/24 15:00 23:00 07:00 Intake Total 1050 ml 240 ml Output Total 1800 ml Balance 1050 ml -1560 ml medications Current Medications Medications Dose Ordered Sig/Pan Route Start Time Stop Time Status Last Admin Dose Admin Ceftriaxone Sodium 50 ml @ 100 mls/hr DAILY@09 IV 06/27/24 09:00 06/27/24 09:09 100 MLS/HR Hydralazine HCl 10 mg Q6HP PRN IV 06/26/24 15:00 Levothyroxine Sodium 25 mcg QAM@0600 PO 06/27/24 06:00 06/27/24 05:35 25 MCG Diagnostic Test (Pha) 1 strip ACHS 06/26/24 17:00 06/27/24 06:33 1 STRIP Insulin Human Regular ACHS SC 06/26/24 17:00 06/26/24 22:48 2 UNITS Dextrose 50 ml UD PRN IV 06/26/24 15:00 Sodium Chloride 1,000 ml @ 60 mls/hr [id number] IV 06/26/24 15:00 06/27/24 07:40 60 MLS/HR Acetaminophen/ Hydrocodone Bitart 1 tab Q4HP PRN PO 06/26/24 15:00 Ondansetron HCl 4 mg Q4HP PRN IV 06/26/24 15:00 06/27/24 09:37 4 MG Docusate Sodium 100 mg BIDPRN PRN PO 06/26/24 15:00 Acetaminophen 650 mg Q6HP PRN PO 06/26/24 15:00 Famotidine 20 mg DAILY IV 06/27/24 10:00 06/27/24 09:09 20 MG Nitroglycerin 0.4 mg Q5MINP PRN SL 06/26/24 16:00 Morphine Sulfate 2 mg Q30M PRN IV 06/26/24 16:00 Examination General Appearance: Cooperative. Well developed. Well nourished. Dry mucous membranes Head Exam: Normal inspection Neck Exam: Normal inspection. Non-tender. Normal alignment Pulmonary/Respiratory: Chest non-tender. Clear bilateral breath sounds, no crackles, no wheezing. Cardiovascular/Chest: Regular rate and rhythm. A systolic murmur likely flow murmur grade 3-4. No JVD. Peripheral Pulses: 2+ Radial (R). 2+ Radial (L). 2+ Pedal (R). 2+ Pedal (L) Abdominal Exam: Normal bowel sounds. Distended but soft abdomen. normal abdomen, no visible veins, Nontender. No hepatospenomegaly. No masses Extremity, left upper extremity strength 3/5, right upper extremity strength 2/5 Ankle Exam: Negative ankle edema Lower extremities: Trace lower extremity edema. decreased b/l lower extremity strength Neuro/Mental Status: A&O x4. Coherent. Thoughts/Psych: Normal thought pattern. Appropriate mood and affect. Good judgement and insight Skin Exam: Normal inspection. Normal color. Warm. Dry laboratory and microbiology Laboratory Tests 06/27/24 05:45 Test 06/27/24 05:45 Range/Units Serum Glucose 115 H 74-106 mg/dL Labs and/or images reviewed: Labs reviewed by me, Image(s) reviewed by me Problem List/Assessment/Plan Problem List/Assessment/Plan Intractable nausea and vomiting; ruled out achalasia Generalized weakness Hyponatremia, serum sodium 131 Dehydration Leukopenia due to above - CT abdomen pelvis: No acute abdominal or pelvic finding. Left renal cysts. Degenerative changes in the spine. Calcified atherosclerotic disease. Right middle lobe nodule measuring up to 7 mm. [address] dedicated chest [address] - barium esophagogram: Mild esophageal reflux disease visualized. Contrast flows normally through the GE junction into the stomach. No achalasia visualized. - IV Zofran 4 mg q.4 as needed for nausea and vomiting - IV NS at 60 cc/hour - p.o. Carafate 1 g 4 times a day Heart failure with reduced ejection fraction 35%, currently stable - CXR: No acute disease - ordered BNP - we will continue to monitor Hypertension Dyslipidemia - patient is running low blood pressure, holding home antihypertensive medications - we will continue to monitor History are Hypothyroidism - TSH 2.06 - levothyroxine 25 mcg q.a.m. - we will continue to monitor Type 2 diabetes, uncontrolled Hb A1c 8.1% on 05/15/2024 - sliding scale insulin Iron deficiency anemia - ordered to iron panel - we will continue to monitor PUD prophylaxis: Pepcid 20 mg DVT prophylaxis: SCD Goals of care: Full code, discussed for >16 minutes on 06/27/24 Plan discussed with patient Plan discussed with Dr. Lazo Plan discussed with: Patient, Son, Other My Orders My Orders Orders - RICARDO العراقي Procedure Category Date Status Time Esophagus Barium XY 06/27/24 Logged Swallow 10:29 Date of Service: Jun 27, 2024 Billing Provider: CAMI LAZO MD Common Visit Codes: [id number] INP/OBS CARE(HIGH) Secondary Visit Codes: [id number] CARE PLAN 30 MINUTES RICARDO العراقي Jun 27, 2024 10:39 CAMI LAZO MD Jun 27, 2024 17:45
[2024-06-27 12:37] VITALS: BP 130/73; PULSE 85; RESP 19; TEMP 97.5; O2SAT 95
--- NOTE | 2024-06-27 13:14 | DVH ---
XY ESOPHAGUS GASTROGRAFIN SWALLOW, HISTORY: DYSPHAGIA ACHALASIA COMPARISON: None PROCEDURE: A crisis nurse radiograph was obtained prior to the procedure. Gastrograffin administered orally , and radiographs were obtained under intermittent fluoroscopic observation. Total fluoroscopic time was 0.6 minutes. DAP 226 FINDINGS: The crisis nurse film demonstrates no abnormality. The esophagus was normal in caliber with no stricture, filling defect or wall irregularity demonstrat ed. Normal esophageal peristalsis was observed. Mild esophageal reflux was demonstrated during this exam. IMPRESSION: Mild esophageal reflux disease visualized. Contrast flows normally through the GE junction into the s tomach. No achalasia visualized.
[2024-06-27 15:40] LABS: % Iron Saturation 7.7 % (15-50)
[2024-06-27] MEDS: GASTROGRAFIN 120 ML SOL ONE (16:05)
[2024-06-27 17:00] VITALS: BP 149/69; PULSE 97; RESP 16; TEMP 98.1; O2SAT 94
[2024-06-27] MEDS: SUCRALFATE 1 GM/10 ML ORAL SUSP PO SCH (17:00)
[2024-06-28 01:00] VITALS: BP 152/49; PULSE 87; RESP 18; O2SAT 91
[2024-06-28 05:00] VITALS: BP 106/53; PULSE 103; RESP 19; O2SAT 96
[2024-06-28 05:44] LABS: Eosinophils # (auto) 0.3 10 ^3/uL (0-0.8); Eosinophils % (auto) 10.6 % (0.0-7.0); Hemoglobin 10.1 g/dL (12.2-16.2); Monocytes # (auto) 0.5 10 ^3/uL (0-1.3); Neutrophils # (auto) 1.3 10 ^3/uL (1.6-8.6); White Blood Cell 3.2 10^3/uL (4.4-10.8)
[2024-06-28 05:45] LABS: Chloride 104 mmol/L (98-107); Potassium 3.8 mmol/L (3.5-5.1)
[2024-06-28 05:46] LABS: Basophils # (auto) 0.1 10 ^3/uL (0-0.2); Basophils % (auto) 1.8 % (0.0-2.0); Hematocrit 31.6 % (36.0-46.0); Lymphocytes % (auto) 31.3 % (10.0-50.0); Mean Corpuscular Hemoglobin 23.8 pg (28.0-32.0); Mean Corpuscular Hgb Conc. 31.9 g/dL (32.0-36.0); Mean Corpuscular Volume 74.5 fL (80.0-100.0); Monocytes % (auto) 16.3 % (0.0-12.0); Nucleated Red Blood Cells % 0.2 %; Platelet Count (auto) 211 10^3/uL (140-450); Red Blood Cells 4.24 10^6/uL (4.0-5.20); Red Cell Distribution Width 19.6 % (11.8-14.3)
[2024-06-28 05:47] LABS: Anion Gap 9 (5-15); Calcium 8.7 mg/dL (8.7-10.4); Carbon Dioxide 23 mmol/L (20-31)
[2024-06-28 05:52] LABS: Glucose 113 mg/dL (74-106)
[2024-06-28 05:56] LABS: BUN/Creatinine Ratio 7.1 (10.0-20.0); Blood Urea Nitrogen < 5 mg/dL (9-23); Sodium 136 mmol/L (136-145)
[2024-06-28 08:22] VITALS: BP 128/52; PULSE 102; RESP 17; TEMP 97.8; O2SAT 96
--- NOTE | 2024-06-28 09:35 | DVHPNRES ---
Progress Note Date Seen: Jun 28, 2024 Resident Creating Document: RICARDO العراقي RESIDENT Medical Necessity Reason Pt with a Central, PICC or Fol: Yes The following are medically ne: Young Catheter Subjective Review of Systems Patient is a year old female with past medical history of osteoarthritis, type 2 diabetes, dyslipidemia, thyroid disease, hypertension, dementia new in onset as reported by the family, heart failure with reduced ejection fraction 45%, left buttock skin tear, hypothyroidism, who came in due to generalized weakness accompanied with nausea, and vomiting. Patient has had similar episodes in the past with hospitalization twice in the past for similar episodes. Per patient's son, she is unable to keep any food or liquids down and ends up vomiting anything she tries to eat. Patient has completed workup for diabetic gastroparesis that came back negative, CT scan of the abdomen with and without contrast during previous hospitalizations also came back negative, patient completed an EGD during last hospitalization which was largely unremarkable except mild gastritis and erosive esophagitis. Serum sodium is 131, UA shows 2+ nitrites, 3+ leukocyte esterase, 52 WBCs and few bacteria. Patient is started on IV NS at 60 cc/hour and IV ceftriaxone. Past surgical history: Denies Home medications: Atorvastatin, furosemide, Past Hospitalization:Discharged May 28, 2024 from the [facility] for similar complaints of nausea and vomiting Social & Personal history: Lives with her son in [place]. Denies using tobacco, alcohol, drugs. Allergies: Denies Patient seen and examined at bedside. Patient is alert and oriented to time, place person and responding to all questions. Patient complains of severe generalized weakness and continued nausea. Objective vital signs Vital Sign Date Time Temp Pulse Resp B/P (MAP) Pulse Ox O2 Delivery O2 Flow Rate FiO2 06/28/24 08:22 97.8 102 17 128/52 (77) 96 97.8 06/27/24 20:00 Room Air* 0 21 Total Intake and Output 06/27/24 06/27/24 06/28/24 15:00 23:00 07:00 Intake Total 240 ml 660 ml 420 ml Output Total 550 ml 500 ml Balance 240 ml 110 ml -80 ml medications Current Medications Medications Dose Ordered Sig/Pan Route Start Time Stop Time Status Last Admin Dose Admin Ceftriaxone Sodium 50 ml @ 100 mls/hr DAILY@09 IV 06/27/24 09:00 06/27/24 09:09 100 MLS/HR Hydralazine HCl 10 mg Q6HP PRN IV 06/26/24 15:00 Levothyroxine Sodium 25 mcg QAM@0600 PO 06/27/24 06:00 06/27/24 05:35 25 MCG Diagnostic Test (Pha) 1 strip ACHS 06/26/24 17:00 06/28/24 06:26 1 STRIP Insulin Human Regular ACHS SC 06/26/24 17:00 06/26/24 22:48 2 UNITS Dextrose 50 ml UD PRN IV 06/26/24 15:00 Sodium Chloride 1,000 ml @ 60 mls/hr [id number] IV 06/26/24 15:00 06/27/24 07:40 60 MLS/HR Acetaminophen/ Hydrocodone Bitart 1 tab Q4HP PRN PO 06/26/24 15:00 Ondansetron HCl 4 mg Q4HP PRN IV 06/26/24 15:00 06/27/24 09:37 4 MG Docusate Sodium 100 mg BIDPRN PRN PO 06/26/24 15:00 Acetaminophen 650 mg Q6HP PRN PO 06/26/24 15:00 Famotidine 20 mg DAILY IV 06/27/24 10:00 06/27/24 09:09 20 MG Nitroglycerin 0.4 mg Q5MINP PRN SL 06/26/24 16:00 Morphine Sulfate 2 mg Q30M PRN IV 06/26/24 16:00 Sucralfate 1 gm QID@0600,1130,1700,2200 PO 06/27/24 17:00 06/27/24 17:00 1 GM Examination General Appearance: Cooperative. Well developed. Well nourished. Dry mucous membranes Head Exam: Normal inspection Neck Exam: Normal inspection. Non-tender. Normal alignment Pulmonary/Respiratory: Chest non-tender. Clear bilateral breath sounds, no crackles, no wheezing. Cardiovascular/Chest: Regular rate and rhythm. A systolic murmur likely flow murmur grade 3-4. No JVD. Peripheral Pulses: 2+ Radial (R). 2+ Radial (L). 2+ Pedal (R). 2+ Pedal (L) Abdominal Exam: Normal bowel sounds. Distended but soft abdomen. normal abdomen, no visible veins, Nontender. No hepatospenomegaly. No masses Extremity, left upper extremity strength 3/5, right upper extremity strength 2/5 Ankle Exam: Negative ankle edema Lower extremities: Trace lower extremity edema. decreased b/l lower extremity strength Neuro/Mental Status: A&O x4. Coherent. Thoughts/Psych: Normal thought pattern. Appropriate mood and affect. Good judgement and insight Skin Exam: Normal inspection. Normal color. Warm. Dry laboratory and microbiology Laboratory Tests 06/28/24 05:10 Test 06/28/24 05:10 Range/Units Serum Glucose 113 H 74-106 mg/dL Microbiology Date/Time Source Procedure Growth Status 06/26/24 23:01 Nose MRSA Screen - Final Complete 06/26/24 12:07 Urine - [place] Urine Culture - Final Escherichia coli Complete Problem List/Assessment/Plan Problem List/Assessment/Plan Intractable nausea and vomiting; ruled out achalasia Generalized weakness Hyponatremia, serum sodium 131, resolved Dehydration Leukopenia due to above - CT abdomen pelvis: No acute abdominal or pelvic finding. Left renal cysts. Degenerative changes in the spine. Calcified atherosclerotic disease. Right middle lobe nodule measuring up to 7 mm. Consider dedicated chest [address] - barium esophagogram: Mild esophageal reflux disease visualized. Contrast flows normally through the GE junction into the stomach. No achalasia visualized. - IV Zofran 4 mg q.4 as needed for nausea and vomiting - IV NS at 60 cc/hour - p.o. Carafate 1 g 4 times a day - ordered blood cultures, urine culture - ordered MRI head Acute complicated UTI - UA: 2+ nitrites, 3+ leukocyte esterase, 52 WBCs and few bacteria - IV ceftriaxone Gastroenteritis vs colitis - stool wbc, stool culture, stool c.diff ordered Heart failure with reduced ejection fraction 35%, currently stable - CXR: No acute disease - ordered BNP; 64.48 - we will continue to monitor Sacral wound, present on admission - patient states she noted some bleeding on her sheets likely from the wound - ordered wound consult Hypertension Dyslipidemia - patient is running low blood pressure, holding home antihypertensive medications - we will continue to monitor History are Hypothyroidism - TSH 2.06 - levothyroxine 25 mcg q.a.m. - we will continue to monitor Type 2 diabetes, uncontrolled Hb A1c 8.1% on 05/15/2024 - sliding scale insulin Iron deficiency anemia - ordered iron panel: Serum iron 22, TIBC 284, % saturation 7.7 - we will continue to monitor PUD prophylaxis: Pepcid 20 mg DVT prophylaxis: SCD Goals of care: Full code, discussed for >16 minutes on 06/27/24 Plan discussed with patient Plan discussed with Dr. Lazo Plan discussed with: Patient, Son, Other (RN) My Orders My Orders Orders - RICARDO العراقي RESIDENT Procedure Category Date Status Time Esophagus XY 06/27/24 Resulted Gastrografin Swallow 11:18 Sucralfate Susp PHA 06/27/24 In Process (Carafate Susp) 17:00 * Swallow Request ST 06/27/24 Transmitted 16:41 * Wound Consult CONS 06/28/24 Transmitted Blood Culture KATHERINE 06/28/24 Logged 07:35 Dietary Evaluation Review Comments: Continue current plan of care Expected Outcomes/Goals: F/U in 3-5 days Date of Service: Jun 28, 2024 Billing Provider: CAMI LAZO MD Common Visit Codes: [id number] INP/OBS CARE(HIGH) RICARDO العراقي RESIDENT Jun 28, 2024 09:35 CAMI LAZO MD Jun 28, 2024 17:58
[2024-06-28 11:39] VITALS: BP 154/66; PULSE 101; RESP 17; TEMP 97.6; O2SAT 94
--- NOTE | 2024-06-28 14:06 | DVHINCON2 ---
GI Consult Consult Note GI consult note Date of Consultation: 06/28/2024 Chief Complaint: Persistent nausea vomiting Referring Physician: Dr. Nunez H&P: 83-year-old female admitted with persistent nausea and vomiting and weakness. Daughter at bedside is translating Patient has epigastric abdominal pain, no hematemesis. Status post EGD Patient has history of constipation. No melena or red blood in stool No colonoscopy in past Per daughter patient has multiple falls frequently and has hit her head Past Medical History: Anxiety, Arthritis, DM, High Lipids, HTN, Thyroid Past Surgical History: Social History: NO smoking, drinking ETOH and use of illegal drugs. Family History: Noncontributory Review of Systems: Constitutional: no fever, chill, weight loss HEENT: no eye pain, no hearing loss, no oral lesion, no scleral icterus Heart: no chest pain, no chest pressure Lung: no cough, no dyspnea with exertion Abdomen: see HPI Physical exam: General: NAD, AAOX3 Chest: lung giron clear to auscultation Heart: RRR, no murmur Abdomen: Mild epigastric tenderness to palpation, +BS Labs: Test 06/28/24 05:10 Range/Units Serum Glucose 113 H 74-106 mg/dL Microbiology Date/Time Source Procedure Growth Status 06/26/24 23:01 Nose MRSA Screen - Final Complete 06/26/24 12:07 Urine - [place] Urine Culture - Final Escherichia coli Complete Imaging: CT abdomen pelvis IMPRESSION: 1. No acute abdominal or pelvic finding. Left renal cysts. Degenerative changes in the spine. Calcified arthrosclerotic disease. Right middle lobe nodule measuring up to 7mm. Consider dedicated chest CT Radiation optimization: All CT scans at this facility use at least one of these dose optimization techniques: Automated exposure control mA and/or kV adjustment per patient size (includes targeted exams where dose is matched to clinical indication) or iterative reconstruction. Gastrografin swallow IMPRESSION: Mild esophageal reflux disease visualized. Contrast flows normally through the GE junction into the stomach. No achalasia visualized. Assessment: Intractable nausea vomiting GERD Abdominal pain Multiple falls Anxiety Plan: Patient also examined by Dr. Bledsoe Small-bowel series with Gastrografin Labs for CEA lipase CA 19-9 Monitor labs Full liquid diet Surgical consult for abdominal pain Head CT If above workup is negative consider psych consult for anxiety We will continue to monitor the patient Thank you for the consult Date of Service: Jun 28, 2024 Billing Provider: VANESSA HANDY Common Visit Codes: CONSULT ONLY Consultation Codes: [id number] CONSULT <60MIN VANESSA HANDY Jun 28, 2024 14:06
[2024-06-28] MEDS ORDERED: EMPA1TAB3 PO (14:24)
[2024-06-28] MEDS: GASTROGRAFIN 120 ML SOL ONE (16:05)
--- NOTE | 2024-06-28 17:58 | DVH ---
Procedure: XY SMALL BOWEL SERIES-W GASTROGRA Reason for study/Clinical History: abd pain, persistant N/V Comparison Study: None available at time of dictation. Technique: Single contrast small bowel series performed. FINDINGS/IMPRESSION: Initial plate filler view of the abdomen and pelvis appears demonstrates no acute process. Contrast is questionably identified within the colon. The study was only imaged for 1 hour. Small -bowel follow-through normally or continued for 3 hours.. Recommend follow-up.
[2024-06-28 20:00] VITALS: PULSE 112; RESP 20; O2SAT 96
[2024-06-28 21:00] VITALS: BP 112/58; PULSE 112; RESP 20; TEMP 98.2; O2SAT 96
[2024-06-29] VITALS (8 sets, daily range): BP systolic 105–155; BP diastolic 39–89; PULSE 94–109; RESP 16–20; TEMP 98–98.4; O2SAT 93–96
[2024-06-29 05:02] LABS: Basophils # (auto) 0.1 10 ^3/uL (0-0.2); Eosinophils # (auto) 0.4 10 ^3/uL (0-0.8); Lymphocytes # (auto) 1.1 10 ^3/uL (0.4-5.4); Mean Corpuscular Hemoglobin 23.4 pg (28.0-32.0); Monocytes # (auto) 0.6 10 ^3/uL (0-1.3); Neutrophils # (auto) 1.9 10 ^3/uL (1.6-8.6); Nucleated Red Blood Cells % 0.1 %; Platelet Count (auto) 224 10^3/uL (140-450)
[2024-06-29 05:04] LABS: Basophils % (auto) 1.2 % (0.0-2.0); Eosinophils % (auto) 10.5 % (0.0-7.0); Hematocrit 30.6 % (36.0-46.0); Hemoglobin 9.7 g/dL (12.2-16.2); Lymphocytes % (auto) 26.2 % (10.0-50.0); Mean Corpuscular Hgb Conc. 31.8 g/dL (32.0-36.0); Mean Corpuscular Volume 73.7 fL (80.0-100.0); Monocytes % (auto) 14.3 % (0.0-12.0); Neutrophils % (auto) 47.8 % (37.0-80.0); Red Blood Cells 4.15 10^6/uL (4.0-5.20); Red Cell Distribution Width 19.9 % (11.8-14.3)
[2024-06-29 05:15] LABS: Chloride 106 mmol/L (98-107); Potassium 3.4 mmol/L (3.5-5.1); Sodium 137 mmol/L (136-145)
[2024-06-29 05:16] LABS: Anion Gap 10 (5-15); Carbon Dioxide 21 mmol/L (20-31)
[2024-06-29 05:17] LABS: Calcium 8.7 mg/dL (8.7-10.4)
[2024-06-29 05:22] LABS: Glucose 123 mg/dL (74-106)
[2024-06-29 05:29] LABS: BUN/Creatinine Ratio 8.2 (10.0-20.0); Blood Urea Nitrogen < 5 mg/dL (9-23)
[2024-06-29] MEDS: PANTOPRAZOLE 40 MG/10 ML VIAL INJ IV SCH (05:59)
--- NOTE | 2024-06-29 08:08 | DVH ---
ULTRASOUND ABDOMEN LIMITED INDICATION: Abdominal pain.. TECHNIQUE: Multiple real-time sonographic images of the abdomen were obtained. COMPARISON: US ABDOMEN LIMITED on DOS: 05/29/24 FINDINGS: The visualized liver parenchyma appears homogenous . The liver measures 12.5 cm. No discrete hep atic lesion or intrahepatic biliary ductal dilatation is identified. There is no evidence of gallstones, gallbladder wall thickening or pericholecystic fluid. The common duct is not visualized. The right kidney measures 10.7 cm length. There is a 7 mm echogenic focus in the lower pole of the right kidney which may represent a small calculus. There is no hydronephrosis. Visualized pancreas appears within normal limits. IMPRESSION: 1. 7 mm echogenic focus in the lower pole of the right kidney may represent a small nonobstructive ca lculus. HS:Y
--- NOTE | 2024-06-29 11:01 | DVH ---
MRI BRAIN WITHOUT CONTRAST CLINICAL HISTORY: CHRONIC STROKE TECHNIQUE: Multiplanar, multisequence MR images of the brain without intravenous contrast. Comparison: CT head 01/27/2022 FINDINGS: The MR images are degraded by motion artifact. There is no restricted diffusion. There are confluence hyperintense T2 signal changes in the bilateral cerebral white matter compatible with moderate to se cata chronic microvascular ischemic changes. There is no evidence of hemorrhage, mass, mass effect or midline shift. There is no hydrocephalus or extra-axial fluid collection. The visualized intracrania l vasculature demonstrates appropriate flow-voids. The sagittal midline structures appear unremarkabl e. The craniocervical junction is within normal limits. There are degenerative changes in the visuali zed upper cervical spine. The calvarium demonstrates normal marrow signal. The paranasal sinuses and mastoid air cells are clear. IMPRESSION: 1. There is no acute intracranial process. 2. Moderate to severe chronic microvascular ischemic changes in the supratentorial white matter. HS:Y
[2024-06-29] MEDS: POTASSIUM CHLORIDE 40 MEQ, LIDOCAINE 1% (LOCAL ANESTH.) 4 ML in SODIUM CHL 0.9% 250 ML IV ONE (13:27)
--- NOTE | 2024-06-29 17:21 | DVHPN2 ---
Progress Note Date Seen: Jun 29, 2024 Resident Creating Document: MAGY KELLEY Medical Necessity Reason Pt with a Central, PICC or Fol: Yes The following are medically ne: Young Catheter Medical Necessity Reason 83-year-old female admitted with persistent nausea and vomiting and weakness. Patient has epigastric abdominal pain, no hematemesis. Status post EGD. Patient has history of constipation. No melena or red blood in stool. No colonoscopy in past. Per daughter patient has multiple falls frequently and has hit her head. Subjective Review of Systems Constitutional: Denies fever, chill, weight losse HEENT: Denies eye pain, no hearing loss, no oral lesion, no scleral icterus Cardiovascular: Denies chest pain, no chest pressure Respiratory: Denies cough, no dyspnea with exertion GI: No abdominal pain, just persistent nausea and vomiting : No frequency, no urgency, no hematuria, Heme/onc: Denies easy bruising, no bleeding disorders, epistasis, Psych: No evidence of depression, kandace, suicidal ideation Objective vital signs Vital Sign Date Time Temp Pulse Resp B/P (MAP) Pulse Ox O2 Delivery O2 Flow Rate FiO2 06/29/24 12:40 98.4 94 20 155/89 (111) 96 98.4 06/29/24 08:00 Room Air* 0 21 Total Intake and Output 06/28/24 06/28/24 06/29/24 14:59 22:59 06:59 Intake Total 50 ml 1600 ml Output Total 650 ml Balance 50 ml 950 ml medications Current Medications Medications Dose Ordered Sig/Pan Route Start Time Stop Time Status Last Admin Dose Admin Ceftriaxone Sodium 50 ml @ 100 mls/hr DAILY@09 IV 06/27/24 09:00 06/29/24 11:26 100 MLS/HR Hydralazine HCl 10 mg Q6HP PRN IV 06/26/24 15:00 Levothyroxine Sodium 25 mcg QAM@0600 PO 06/27/24 06:00 06/29/24 05:59 25 MCG Diagnostic Test (Pha) 1 strip ACHS 06/26/24 17:00 06/29/24 11:31 1 STRIP Insulin Human Regular ACHS SC 06/26/24 17:00 06/29/24 06:10 2 UNITS Dextrose 50 ml UD PRN IV 06/26/24 15:00 Ondansetron HCl 4 mg Q4HP PRN IV 06/26/24 15:00 06/27/24 09:37 4 MG Docusate Sodium 100 mg BIDPRN PRN PO 06/26/24 15:00 Acetaminophen 650 mg Q6HP PRN PO 06/26/24 15:00 Nitroglycerin 0.4 mg Q5MINP PRN SL 06/26/24 16:00 Sucralfate 1 gm QID@0600,1130,1700,2200 PO 06/27/24 17:00 06/29/24 11:26 1 GM Pantoprazole Sodium 40 mg DAILY@0630 IV 06/29/24 06:30 06/29/24 05:59 40 MG Olanzapine 5 mg DAILY PO 06/29/24 10:00 Losartan Potassium 50 mg DAILY PO 06/29/24 10:00 Examination General examination- not in any acute distress,AOx3 HEENT- PEERLA, no acute nasal discharge Cardiovascular- S1-S2 audible, rate and rhythm regular, no murmur Respiratory- CTAB, no wheeze or rhonchi Gastrointestinal-Mild epigastric tenderness to palpation, +BS Musculoskeletal-no acute joint swelling or tenderness or redness# Lower extremity- no leg edema Skin- no acute rash or purpura laboratory and microbiology Laboratory Tests 06/29/24 04:35 Test 06/29/24 04:35 Range/Units Serum Glucose 123 H 74-106 mg/dL Microbiology Date/Time Source Procedure Growth Status 06/28/24 13:33 Stool Stool Culture - Preliminary Resulted 06/28/24 13:33 Stool Shiga Toxin I & II - Final Resulted 06/28/24 13:33 Stool Clostridium difficile Toxin Assay Pending Resulted 06/28/24 13:13 Blood Blood Culture - Preliminary NO GROWTH AFTER 24 HOURS OF INCUBATION. Resulted 06/26/24 23:01 Nose MRSA Screen - Final Complete 06/26/24 12:07 Urine - [place] Urine Culture - Final Escherichia coli Complete Problem List/Assessment/Plan Problem List/Assessment/Plan Intractable nausea vomiting --> Lipase: unremarkable --> Small-bowel series with Gastrografin-- unremarkable --> CA19-9 Pending --> MRI: No acute intracranial process. Moderate to severe chronic microvascular ischemic changes in the supratentorial white matter. GERD Abdominal pain Multiple falls Anxiety UTI Plan: Monitor labs Continue antibiotics for UTI Full liquid diet patient refused colonoscopy Surgical consult for persistent nausea and vomiting Psych consult for anxiety We will continue to monitor the patient Goal of care discussed for more than 19 minute: Full code Case and plan discussed with Dr. Bledsoe Plan discussed with: Patient, Son Dietary Evaluation Review Comments: Continue current plan of care Expected Outcomes/Goals: F/U in 3-5 days MAGY KELLEY RESIDENT Jun 29, 2024 17:21
--- NOTE | 2024-06-29 17:38 | DVHPNRES ---
Progress Note Date Seen: Jun 29, 2024 Resident Creating Document: RICARDO العراقي RESIDENT Medical Necessity Reason Pt with a Central, PICC or Fol: Yes The following are medically ne: Young Catheter Subjective Review of Systems Patient is a year old female with past medical history of osteoarthritis, type 2 diabetes, dyslipidemia, thyroid disease, hypertension, dementia new in onset as reported by the family, heart failure with reduced ejection fraction 45%, left buttock skin tear, hypothyroidism, who came in due to generalized weakness accompanied with nausea, and vomiting. Patient has had similar episodes in the past with hospitalization twice in the past for similar episodes. Per patient's son, she is unable to keep any food or liquids down and ends up vomiting anything she tries to eat. Patient has completed workup for diabetic gastroparesis that came back negative, CT scan of the abdomen with and without contrast during previous hospitalizations also came back negative, patient completed an EGD during last hospitalization which was largely unremarkable except mild gastritis and erosive esophagitis. Serum sodium is 131, UA shows 2+ nitrites, 3+ leukocyte esterase, 52 WBCs and few bacteria. Patient is started on IV NS at 60 cc/hour and IV ceftriaxone. Past surgical history: Denies Home medications: Atorvastatin, furosemide, Past Hospitalization:Discharged May 28, 2024 from the [facility] for similar complaints of nausea and vomiting Social & Personal history: Lives with her son in [place]. Denies using tobacco, alcohol, drugs. Allergies: Denies Patient seen and examined at bedside. Patient is alert and oriented to time, place person and responding to all questions. Patient complains of severe generalized weakness and continued nausea. Reports 4 bowel movements in the last 24 hours. Objective vital signs Vital Sign Date Time Temp Pulse Resp B/P (MAP) Pulse Ox O2 Delivery O2 Flow Rate FiO2 06/29/24 17:10 98.3 105 16 144/77 (99) 96 98.3 06/29/24 08:00 Room Air* 0 21 Total Intake and Output 06/28/24 06/28/24 06/29/24 15:00 23:00 07:00 Intake Total 50 ml 1600 ml Output Total 650 ml Balance 50 ml 950 ml medications Current Medications Medications Dose Ordered Sig/Pan Route Start Time Stop Time Status Last Admin Dose Admin Ceftriaxone Sodium 50 ml @ 100 mls/hr DAILY@09 IV 06/27/24 09:00 06/29/24 11:26 100 MLS/HR Hydralazine HCl 10 mg Q6HP PRN IV 06/26/24 15:00 Levothyroxine Sodium 25 mcg QAM@0600 PO 06/27/24 06:00 06/29/24 05:59 25 MCG Diagnostic Test (Pha) 1 strip ACHS 06/26/24 17:00 06/29/24 11:31 1 STRIP Insulin Human Regular ACHS SC 06/26/24 17:00 06/29/24 06:10 2 UNITS Dextrose 50 ml UD PRN IV 06/26/24 15:00 Ondansetron HCl 4 mg Q4HP PRN IV 06/26/24 15:00 06/27/24 09:37 4 MG Docusate Sodium 100 mg BIDPRN PRN PO 06/26/24 15:00 Acetaminophen 650 mg Q6HP PRN PO 06/26/24 15:00 Nitroglycerin 0.4 mg Q5MINP PRN SL 06/26/24 16:00 Sucralfate 1 gm QID@0600,1130,1700,2200 PO 06/27/24 17:00 06/29/24 11:26 1 GM Pantoprazole Sodium 40 mg DAILY@0630 IV 06/29/24 06:30 06/29/24 05:59 40 MG Olanzapine 5 mg DAILY PO 06/29/24 10:00 Losartan Potassium 50 mg DAILY PO 06/29/24 10:00 Examination General Appearance: Cooperative. Well developed. Well nourished. Dry mucous membranes Head Exam: Normal inspection Neck Exam: Normal inspection. Non-tender. Normal alignment Pulmonary/Respiratory: Chest non-tender. Clear bilateral breath sounds, no crackles, no wheezing. Cardiovascular/Chest: Regular rate and rhythm. A systolic murmur likely flow murmur grade 3-4. No JVD. Peripheral Pulses: 2+ Radial (R). 2+ Radial (L). 2+ Pedal (R). 2+ Pedal (L) Abdominal Exam: Normal bowel sounds. Distended but soft abdomen. normal abdomen, no visible veins, Nontender. No hepatospenomegaly. No masses Extremity, left upper extremity strength 3/5, right upper extremity strength 2/5 Ankle Exam: Negative ankle edema Lower extremities: Trace lower extremity edema. decreased b/l lower extremity strength Neuro/Mental Status: A&O x4. Coherent. Thoughts/Psych: Normal thought pattern. Appropriate mood and affect. Good judgement and insight Skin Exam: Normal inspection. Normal color. Warm. Dry laboratory and microbiology Laboratory Tests 06/29/24 04:35 Test 06/29/24 04:35 Range/Units Serum Glucose 123 H 74-106 mg/dL Microbiology Date/Time Source Procedure Growth Status 06/28/24 13:33 Stool Stool Culture - Preliminary Resulted 06/28/24 13:33 Stool Shiga Toxin I & II - Final Resulted 06/28/24 13:33 Stool Clostridium difficile Toxin Assay Pending Resulted 06/28/24 13:13 Blood Blood Culture - Preliminary NO GROWTH AFTER 24 HOURS OF INCUBATION. Resulted 06/26/24 23:01 Nose MRSA Screen - Final Complete 06/26/24 12:07 Urine - [place] Urine Culture - Final Escherichia coli Complete Problem List/Assessment/Plan Problem List/Assessment/Plan Intractable nausea and vomiting; ruled out achalasia Generalized weakness Hyponatremia, serum sodium 131, resolved Dehydration Leukopenia due to above - CT abdomen pelvis: No acute abdominal or pelvic finding. Left renal cysts. Degenerative changes in the spine. Calcified atherosclerotic disease. Right middle lobe nodule measuring up to [address] - barium esophagogram: Mild esophageal reflux disease visualized. Contrast flows normally through the GE junction into the stomach. No achalasia visualized. - IV Zofran 4 mg q.4 as needed for nausea and vomiting - IV NS at 60 cc/hour - p.o. Carafate 1 g 4 times a day - Protonix 40 mg IV - ordered blood cultures, urine culture - ordered MRI head: There is no acute intracranial process. Moderate to severe chronic microvascular ischemic changes in the supratentorial white matter. - olanzapine 5 mg p.o. daily Acute complicated UTI - UA: 2+ nitrites, 3+ leukocyte esterase, 52 WBCs and few bacteria - IV ceftriaxone Gastroenteritis vs colitis - stool wbc, stool culture, stool c.diff ordered Heart failure with reduced ejection fraction 35%, currently stable - CXR: No acute disease - ordered BNP; 64.48 - we will continue to monitor Sacral wound, present on admission - patient states she noted some bleeding on her sheets likely from the wound - ordered wound consult Hypertension Dyslipidemia - patient is running low blood pressure, holding home antihypertensive medications - we will continue to monitor - losartan 50 mg p.o. daily History of Hypothyroidism - TSH 2.06 - levothyroxine 25 mcg q.a.m. - we will continue to monitor Type 2 diabetes, uncontrolled Hb A1c 8.1% on 05/15/2024 - sliding scale insulin Iron deficiency anemia - ordered iron panel: Serum iron 22, TIBC 284, % saturation 7.7 - we will continue to monitor Hypokalemia - replace potassium PUD prophylaxis: IV Protonix 40 mg DVT prophylaxis: SCD Goals of care: Full code, discussed for >16 minutes on 06/27/24 Plan discussed with patient Plan discussed with Dr. Lazo Plan discussed with: Patient, Daughter, Son, Other (RN) My Orders My Orders Orders - RICARDO العراقي RESIDENT Procedure Category Date Status Time Brain Head Wo Contrast MRI 06/29/24 Resulted 10:12 Dietary Evaluation Review Comments: Continue current plan of care Expected Outcomes/Goals: F/U in 3-5 days Date of Service: Jun 29, 2024 Billing Provider: CAMI LAZO MD Common Visit Codes: [id number] INP/OBS CARE(HIGH) RICARDO العراقي Jun 29, 2024 17:38 CAMI LAZO MD Jun 29, 2024 18:14
[2024-06-29] MEDS: LOSARTAN POTASSIUM 50 MG TAB PO SCH (17:58)
[2024-06-29] MEDS: OLANZapine 5 MG TAB PO SCH (17:59)
--- NOTE | 2024-06-29 21:14 | DVHINCON2 ---
Date of service: Jun 29, [address] Jaclyn Nunez Reason for Consultation Medication management and disposition. History of Present Illness Chief complaint: As per daughter "nausea and vomiting". History of present illness: This is a 83 year female who was seen for evaluatio n via telepsychiatry. Patient was slightly sedated and was not able to engage in conversation. Most of the information was provided by her daughter who was at bedside and nursing staff. As per daughter patient does not have any history of having any mental health issues. As per daughter patient had not decrease any auditory or visual hallucination. As per nursing staff patient has been restless and anxious at times. Past psychiatric history: There is no history of any psychiatric illness. Past Medical History As per history and physical. Past Surgical History As per history and physical. Family History: Patient reports no known family medical history. Family History There is no family history of any psychiatric illness. Social History Patient is and has eight children. Allergies: Coded Allergies: NO KNOWN ALLERGIES (Unverified , 11/18/18) Home Meds Active Scripts Meloxicam (Meloxicam) 7.5 Mg Tab, 1 TAB PO DAILY, #30 TAB 1 Refill Prov:LIU COBURN MD 05/26/24 Celecoxib (CeleBREX CAPSULE) 100 Mg Cp, 1 CAP PO BID, #60 CAP 3 Refills Prov:LIU COBURN MD 05/26/24 Ondansetron Odt 4MG Tab (ZOFRAN PO) 4 Mg Tb, 4 MG PO TIDP PRN, #50 TAB ODT TAB-DISSOLVE IN MOUTH, THEN SWALLOW Prov:LIU COBURN MD 05/26/24 Pantoprazole Sodium Sesquihydr (Pantoprazole Sodium) 40 Mg Tab, 40 MG PO DAILY@0600 for 30 Days, #30 TAB Prov:LIU COBURN MD 05/26/24 Ergocalciferol (VITAMIN D 65256 UNIT) 50,000 [place], [address] UNIT PO Q7D for 60 Days, #10 CAP Prov:KRISTI MARTÍNEZ 03/20/24 Reported Medications Sitagliptin Phosphate (Januvia) 50 Mg Tab, 25 MG PO DAILY for 90 Days, #90 06/28/24 Empagliflozin (Jardiance) 25 Mg Tab, 1 TAB PO DAILY for 90 Days, #90 06/28/24 Cholecalciferol (Gnp Vitamin D) 1,000 Unit Tab, 1 TAB PO DAILY for 30 Days, #30 06/28/24 Metoclopramide Hcl (Metoclopramide Hcl) 5 Mg Tab, 1 TAB PO BID for 30 Days, #60 06/28/24 Atorvastatin Calcium (Lipitor) 40 Mg Tab, 1 TAB PO DAILY for 30 Days, #30 06/28/24 Amlodipine Besylate (Amlodipine Besylate) 10 Mg Tab, 1 TAB PO DAILY 05/22/24 Oxybutynin Chloride (Oxybutynin Chloride) 5 Mg Tab, 5 MG PO DAILY, TAB 05/15/24 Losartan Potassium (Losartan Potassium) 50 Mg Tab, 50 MG PO DAILY for 30 Days, MG 05/15/24 Sucralfate (Sucralfate) 1 Gm Tab, 1 GM PO BID, GM 05/15/24 Potassium Chloride (POTASSIUM CHLORIDE CR) 10 Meq Tb, 1 TAB PO DAILY, #30 TAB 5 Refills 05/15/24 Glipizide (Glipizide) 10 Mg Tab, 1 TAB PO BID, #60 TAB 5 Refills 05/15/24 Furosemide (Furosemide) 20 Mg Tab, 20 MG PO DAILY for 30 Days, MG 05/15/24 Citalopram Hydrobromide (Citalopram Hydrobromide) 20 Mg Tab, 20 MG PO DAILY for 30 Days, MG 05/15/24 Metoprolol Succinate (Metoprolol Succinate Er) 50 Mg Tab, 50 MG PO DAILY for 30 Days, MG 05/15/24 Levothyroxine Sodium (Levothyroxine Sodium) 25 Mcg Tab, 25 MCG PO QAM, MCG 03/18/24 Discontinued Reported Medications Atorvastatin Calcium (ATORVASTATIN CALCIUM) 20 Mg Tab, 1 TAB PO DAILY, #30 TAB 5 Refills 05/15/24 Current Medications Current Medications Medications (Trade) Dose Ordered Sig/Pan Route PRN Reason Start Time Stop Time Status Last Admin Pantoprazole Sodium (Protonix) 40 mg DAILY@0630 IV 06/29/24 06:30 06/29/24 05:59 Olanzapine (ZyPREXA Tablet) 5 mg DAILY PO 06/29/24 10:00 06/29/24 17:59 Losartan Potassium (Cozaar Tablet) 50 mg DAILY PO 06/29/24 10:00 06/29/24 17:58 Buspirone HCl (Buspar Tablet) 5 mg Q12HR PO 06/29/24 22:00 Review of Systems Review of systems could not be completed because of her confusion. Vital Signs Vital Signs Date Time Temp Pulse Resp B/P (MAP) Pulse Ox O2 Delivery O2 Flow Rate FiO2 06/29/24 17:58 144/77 06/29/24 17:10 98.3 105 16 96 98.3 06/29/24 08:00 Room Air* 0 21 Physical Exam Mental status examination: This is a 82 year female who appears to be of her stated age. Patient is dressed in hospital gown. Patient is not able to engage. Her speech is soft and hard to understand. Her mood could not be tested her affect is restricted. Her thought content could not be tested. Her thought processes was disorganized and she was internally preoccupied and thought blocking. He is oriented to person only. Her attention and concentration is impaired. Her memory and language impaired. Her judgment and insight is limited. Her impulse control is limited. Labs/Diagnostic Data Labs Test 06/29/24 18:04 06/29/24 04:35 06/28/24 18:51 06/28/24 18:17 Range/Units POC Glucose 103 70-106 mg/dl White Blood Count 4.0 L 4.4-10.8 10^3/uL Red Blood Count 4.15 4.0-5.20 10^6/uL Hemoglobin 9.7 L 12.2-16.2 g/dL Hematocrit 30.6 L 36.0-46.0 % Mean Corpuscular Volume 73.7 L 80.0-100.0 fL Mean Corpuscular Hemoglobin 23.4 L 28.0-32.0 pg Mean Corpuscular Hemoglobin Concent 31.8 L 32.0-36.0 g/dL Red Cell Distribution Width 19.9 H 11.8-14.3 % Platelet Count 224 140-450 10^3/uL Mean Platelet Volume 7.5 6.9-10.8 fL Neutrophils (%) (Auto) 47.8 37.0-80.0 % Lymphocytes (%) (Auto) 26.2 10.0-50.0 % Monocytes (%) (Auto) 14.3 H 0.0-12.0 % Eosinophils (%) (Auto) 10.5 H 0.0-7.0 % Basophils (%) (Auto) 1.2 0.0-2.0 % Neutrophils # (Auto) 1.9 1.6-8.6 10 ^3/uL Lymphocytes # (Auto) 1.1 0.4-5.4 10 ^3/uL Monocytes # (Auto) 0.6 0-1.3 10 ^3/uL Eosinophils # (Auto) 0.4 0-0.8 10 ^3/uL Basophils # (Auto) 0.1 0-0.2 10 ^3/uL Nucleated Red Blood Cells 0.1 % Sodium Level 137 136-145 mmol/L Potassium Level 3.4 L 3.5-5.1 mmol/L Chloride Level 106 98-107 mmol/L Carbon Dioxide Level 21 20-31 mmol/L Anion Gap 10 5-15 Blood Urea Nitrogen < 5 L 9-23 mg/dL Creatinine 0.61 0.550-1.02 mg/dL Glomerular Filtration Rate Calc 89 >90 mL/min BUN/Creatinine Ratio 8.2 L 10.0-20.0 Serum Glucose 123 H 74-106 mg/dL Calcium Level 8.7 8.7-10.4 mg/dL Carcinoembryonic Antigen 2.51 <=5.0 ng/mL Lipase 36 12-53 U/L Test 06/28/24 13:33 06/27/24 05:45 06/26/24 14:38 06/26/24 12:07 Range/Units Stool Occult Blood Negative Negative Stool Occult Blood Sample #3 Negative Stool for White Cells None seen Differential Total Cells Counted 100.0 100 Neutrophils % (Manual) 42 37.0-80.0 Band Neutrophils % (Manual) 0 Lymphocytes % (Manual) 52 H 10.0-50.0 Monocytes % (Manual) 1 0-12 Eosinophils % (Manual) 5 0-7 Basophils % (Manual) 0 0.0-2.0 Metamyelocytes % (manual) 0 Myelocytes % (Manual) 0 Promyelocytes % (Manual) 0 Blast Cells % (Manual) 0 Reactive Lymphocytes 0 Platelet Estimate Adequate Iron Level 22 L 50-170 ug/dL Total Iron Binding Capacity 284 250-425 ug/dL Percent Iron Saturation 7.7 L 15-50 % Total Bilirubin 0.6 0.2-1.0 mg/dL Aspartate Amino Transferase (AST) 37 13-40 U/L Alanine Aminotransferase (ALT) 16 7-40 U/L Alkaline Phosphatase 52 46-116 U/L B-Type Natriuretic Peptide 64.48 0-100 pg/mL Total Protein 5.1 L 5.7-8.2 g/dL Albumin 3.3 3.2-4.8 g/dL Troponin I High Sensitivity 6 </=34 ng/L Thyroid Stimulating Hormone (TSH) 2.06 0.55-4.78 uIU/mL Urine Color Light-yellow Yellow Urine Clarity Clear Clear Urine pH 5.5 5.0-9.0 Urine Specific [place] 1.006 1.001-1.035 Urine Protein Negative Negative Urine Ketones Negative Negative Urine Blood Negative Negative /uL Urine Nitrite 2+ H Negative Urine Bilirubin Negative Negative Urine Urobilinogen Normal Negative mg/dL Urine Leukocyte Esterase 3+ Negative /uL Urine RBC 2 0 - 4 /hpf Urine WBC 52 0 - 5 /hpf Urine Squamous Epithelial Cells None seen <5 /hpf Urine Bacteria Few H None Seen /hpf Urine Glucose Normal Normal mg/dL Microbiology Date/Time Source Procedure Growth Status 06/28/24 13:33 Stool Stool Culture - Preliminary Resulted 06/28/24 13:33 Stool Shiga Toxin I & II - Final Resulted 06/28/24 13:33 Stool Clostridium difficile Toxin Assay Pending Resulted 06/28/24 13:13 Blood Blood Culture - Preliminary NO GROWTH AFTER 24 HOURS OF INCUBATION. Resulted 06/26/24 23:01 Nose MRSA Screen - Final Complete 06/26/24 12:07 Urine - [place] Urine Culture - Final Escherichia coli Complete Assessment Patient with a diagnosis of anxiety disorder not otherwise specified who has been found to be restless at times. Plan/Recommendation I will start her on BuSpar 5 mg p.o. b.i.d.. Care was coordinated with patient's daughter and her RN. Plan discussed with: Daughter SALVADOR SMITH MD Jun 29, 2024 21:14
[2024-06-29] MEDS: busPIRone HCL 10 MG TAB PO SCH (21:32)
[2024-06-30] VITALS (8 sets, daily range): BP systolic 115–150; BP diastolic 35–68; PULSE 92–103; RESP 14–20; TEMP 97.5–98.4; O2SAT 90–96
[2024-06-30 05:59] LABS: Eosinophils # (auto) 0.4 10 ^3/uL (0-0.8); Mean Corpuscular Hgb Conc. 31.9 g/dL (32.0-36.0); Neutrophils # (auto) 1.4 10 ^3/uL (1.6-8.6); White Blood Cell 3.3 10^3/uL (4.4-10.8)
[2024-06-30 06:01] LABS: Basophils # (auto) 0 10 ^3/uL (0-0.2); Basophils % (auto) 1.5 % (0.0-2.0); Hematocrit 31.8 % (36.0-46.0); Hemoglobin 10.2 g/dL (12.2-16.2); Lymphocytes % (auto) 29.6 % (10.0-50.0); Mean Corpuscular Hemoglobin 23.7 pg (28.0-32.0); Mean Corpuscular Volume 74.4 fL (80.0-100.0); Monocytes # (auto) 0.4 10 ^3/uL (0-1.3); Monocytes % (auto) 13.4 % (0.0-12.0); Neutrophils % (auto) 43.5 % (37.0-80.0); Nucleated Red Blood Cells % 0.3 %; Platelet Count (auto) 241 10^3/uL (140-450); Red Blood Cells 4.28 10^6/uL (4.0-5.20); Red Cell Distribution Width 19.6 % (11.8-14.3)
[2024-06-30 06:16] LABS: Chloride 110 mmol/L (98-107); Potassium 3.7 mmol/L (3.5-5.1); Sodium 142 mmol/L (136-145)
[2024-06-30 06:17] LABS: Anion Gap 8 (5-15); Carbon Dioxide 24 mmol/L (20-31)
[2024-06-30 06:23] LABS: Glucose 95 mg/dL (74-106)
[2024-06-30 06:24] LABS: BUN/Creatinine Ratio 7.6 (10.0-20.0); Blood Urea Nitrogen < 5 mg/dL (9-23)
--- NOTE | 2024-06-30 07:37 | DVHPNRES ---
Progress Note Date Seen: Jun 30, 2024 Resident Creating Document: APRIL GILBERT RESIDENT Medical Necessity Reason Pt with a Central, PICC or Fol: Yes The following are medically ne: Young Catheter Subjective Review of Systems Saw the patient at the bedside. Much more awake and conversational. Family members at bedside. Mild symptomatic improvement. Picky eater not eating much of healthy supplements. Patient reports: No new complaints, Feels better Changes from previous H/P or p: No Changes Review of Systems: HEENT:Normal, CVS:Normal, RESPIRATORY:Normal, GI:Abnormal (Improved but still having nausea and tolerating liquids.), :Normal (UTI on IV antibiotics no concerning symptoms), MSK:Abnormal (Generalized weakness), NEURO:Normal (Alert, oriented, anxious) Objective vital signs Vital Sign Date Time Temp Pulse Resp B/P (MAP) Pulse Ox O2 Delivery O2 Flow Rate FiO2 06/30/24 05:00 98.1 92 14 123/59 (80) 90 98.1 06/29/24 20:00 Room Air* 0 21 Total Intake and Output 06/29/24 06/29/24 06/30/24 15:00 23:00 07:00 Intake Total 50 ml 1000 ml 700 ml Output Total 1400 ml Balance 50 ml 1000 ml -700 ml medications Current Medications Medications Dose Ordered Sig/Pan Route Start Time Stop Time Status Last Admin Dose Admin Ceftriaxone Sodium 50 ml @ 100 mls/hr DAILY@09 IV 06/27/24 09:00 06/29/24 11:26 100 MLS/HR Hydralazine HCl 10 mg Q6HP PRN IV 06/26/24 15:00 Levothyroxine Sodium 25 mcg QAM@0600 PO 06/27/24 06:00 06/30/24 06:08 25 MCG Diagnostic Test (Pha) 1 strip ACHS 06/26/24 17:00 06/30/24 06:15 1 STRIP Insulin Human Regular ACHS SC 06/26/24 17:00 06/29/24 06:10 2 UNITS Dextrose 50 ml UD PRN IV 06/26/24 15:00 Ondansetron HCl 4 mg Q4HP PRN IV 06/26/24 15:00 06/27/24 09:37 4 MG Docusate Sodium 100 mg BIDPRN PRN PO 06/26/24 15:00 Acetaminophen 650 mg Q6HP PRN PO 06/26/24 15:00 Nitroglycerin 0.4 mg Q5MINP PRN SL 06/26/24 16:00 Sucralfate 1 gm QID@0600,1130,1700,2200 PO 06/27/24 17:00 06/30/24 06:09 1 GM Pantoprazole Sodium 40 mg DAILY@0630 IV 06/29/24 06:30 06/30/24 06:09 40 MG Olanzapine 5 mg DAILY PO 06/29/24 10:00 06/29/24 17:59 5 MG Losartan Potassium 50 mg DAILY PO 06/29/24 10:00 06/29/24 17:58 50 MG Buspirone HCl 5 mg Q12HR PO 06/29/24 22:00 06/29/24 21:32 5 MG Examination: GENERAL:Abnormal (Mucosal dryness mild dehydration.), HEENT:Normal, NECK:Normal, LUNGS:Normal, CVS:Normal, ABDOMEN:Normal, MSK:Abnormal (Stable superficial red blanching), SKIN:Normal, NEURO:Abnormal (At her baseline, she has poor long-term memory, alert oriented, anxious), :Normal laboratory and microbiology Laboratory Tests 06/30/24 04:59 Test 06/30/24 04:59 Range/Units Serum Glucose 95 74-106 mg/dL Microbiology Date/Time Source Procedure Growth Status 06/28/24 13:33 Stool Stool Culture - Preliminary Resulted 06/28/24 13:33 Stool Shiga Toxin I & II - Final Resulted 06/28/24 13:33 Stool Clostridium difficile Toxin Assay Pending Resulted 06/28/24 13:13 Blood Blood Culture - Preliminary NO GROWTH AFTER 24 HOURS OF INCUBATION. Resulted 06/26/24 23:01 Nose MRSA Screen - Final Complete 06/26/24 12:07 Urine - [place] Urine Culture - Final Escherichia coli Complete Labs and/or images reviewed: Labs reviewed by me, Image(s) reviewed by me Problem List/Assessment/Plan Problem List/Assessment/Plan Hospital Course: Ms. Dang, an 83 y/o [place] female with a history of osteoarthritis, type 2 diabetes, dyslipidemia, thyroid disease, hypertension, newly reported dementia, heart failure with reduced ejection fraction (45%), left buttock skin tear, and hypothyroidism. She presented with generalized weakness, nausea, and vomiting, similar to previous episodes that required hospitalization. Her son reports she cannot retain food or liquids. Previous workups, including tests for diabetic gastroparesis, abdominal CT scans, and an EGD, were largely unremarkable except for mild gastritis and erosive esophagitis. Current findings include a serum sodium level of 131 and a UA showing signs of infection. She is being treated with IV fluids and ceftriaxone. She lives with her son in [place] and denies using tobacco, alcohol, or drugs. # Intractable nausea and vomiting: ruled out achalasia: Presented with 3-4 months of progressive dysphagia started with solids now progressed to liquids as well. CT abdomen pelvis: No acute abdominal or pelvic finding, left renal cysts, degenerative changes in the spine, calcified atherosclerotic disease, right middle lobe nodule (7 mm), consider dedicated chest CT Barium esophagogram: Mild esophageal reflux disease, normal contrast flow through GE junction, no achalasia. IV Zofran 4 mg q.4 as needed for nausea and vomiting. GI workup grossly negative. This could be neurogenic/psychogenic started on Olanzapine 5 mg p.o. daily. # GERD on p.o. Carafate 1 g 4 times a day Protonix 40 mg IV # Hyponatremia, at presentation serum sodium 131, improved, poor nutrition/ Dehydration status post IV NS at 60 cc/hour # mild Leukopenia: Daily CBC and close follow up could be due to poor nutrition/infection. Hemodynamically stable. # vascular dementia: MRI brain noted no intracranial process, moderate to severe chronic microvascular ischemic changes in supratentorial white matter # Acute complicated UTI: UA shows 2+ nitrites, 3+ leukocyte esterase, 52 WBCs, few bacteria; IV Rocephin to continue. # Gastroenteritis vs colitis: Loose stool, improving. possible Campylobacter infection, E coli 0157 isolated, pansensitive. On antibiotics. C diff negative. # Heart failure with reduced ejection fraction 35%, currently stable: CXR shows no acute disease, ordered BNP (64.48), grossly euvolemic breathing comfortably on room air # Sacral wound, present on admission , superficial, wound team input appreciated. # essential Hypertension: Presented with soft blood pressure, improved on holding home antihypertensive medications. Restarted home losartan 50 mg p.o. daily, still elevated blood pressures added 5 mg daily amlodipine. Target blood pressure 130/80 or below. # Dyslipidemia: Reintroduce statin when patient can tolerate oral diet/medications properly # History of Hypothyroidism: TSH 2.06, levothyroxine 25 mcg q.a.m., monitoring # Type 2 diabetes, moderately controlled Hb A1c 8.1% on 05/15/2024: Sliding scale insulin # Iron deficiency anemia: Ordered iron panel (serum iron 22, TIBC 284, % saturation 7.7), monitoring # Hypokalemia, resolved # generalized anxiety disorder: Psych evaluation done. Appreciate input. Continue BuSpar 5 mg p.o. b.i.d.. Diet: As tolerated. Protein supplements and clear/full liquid diet DVT prophylaxis: Lovenox Discussed with Dr. Stephens. Code status: Full code. Care discussion needed 35 minutes of discussion. Barriers to discharge: Medical workup and management are ongoing. Earliest discharge planning at recovery. Plan discussed with: Patient, Daughter, Other (Family members x2) My Orders My Orders Orders - APRIL GILBERT RESIDENT Procedure Category Date Status Time Olanzapine Tablet PHA 06/29/24 In Process (Zyprexa Tablet) 10:00 Losartan Tablet PHA 06/29/24 In Process (Cozaar Tablet) 10:00 Dietary Evaluation Review Comments: Continue current plan of care Expected Outcomes/Goals: F/U in 3-5 days Labs/Diagnostic Data Laboratory Tests Test 06/30/24 06:10 06/30/24 04:59 06/29/24 21:12 06/29/24 18:04 Range/Units POC Glucose 106 106 103 70-106 mg/dl White Blood Count 3.3 L 4.4-10.8 10^3/uL Red Blood Count 4.28 4.0-5.20 10^6/uL Hemoglobin 10.2 L 12.2-16.2 g/dL Hematocrit 31.8 L 36.0-46.0 % Mean Corpuscular Volume 74.4 L 80.0-100.0 fL Mean Corpuscular Hemoglobin 23.7 L 28.0-32.0 pg Mean Corpuscular Hemoglobin Concent 31.9 L 32.0-36.0 g/dL Red Cell Distribution Width 19.6 H 11.8-14.3 % Platelet Count 241 140-450 10^3/uL Mean Platelet Volume 7.5 6.9-10.8 fL Neutrophils (%) (Auto) 43.5 37.0-80.0 % Lymphocytes (%) (Auto) 29.6 10.0-50.0 % Monocytes (%) (Auto) 13.4 H 0.0-12.0 % Eosinophils (%) (Auto) 12.0 H 0.0-7.0 % Basophils (%) (Auto) 1.5 0.0-2.0 % Neutrophils # (Auto) 1.4 L 1.6-8.6 10 ^3/uL Lymphocytes # (Auto) 1.0 0.4-5.4 10 ^3/uL Monocytes # (Auto) 0.4 0-1.3 10 ^3/uL Eosinophils # (Auto) 0.4 0-0.8 10 ^3/uL Basophils # (Auto) 0 0-0.2 10 ^3/uL Nucleated Red Blood Cells 0.3 % Sodium Level 142 # 136-145 mmol/L Potassium Level 3.7 3.5-5.1 mmol/L Chloride Level 110 H 98-107 mmol/L Carbon Dioxide Level 24 20-31 mmol/L Anion Gap 8 5-15 Blood Urea Nitrogen < 5 L 9-23 mg/dL Creatinine 0.66 0.550-1.02 mg/dL Glomerular Filtration Rate Calc 87 >90 mL/min BUN/Creatinine Ratio 7.6 L 10.0-20.0 Serum Glucose 95 74-106 mg/dL Calcium Level 9.0 8.7-10.4 mg/dL Test 06/29/24 11:30 Range/Units POC Glucose 119 H 70-106 mg/dl Microbiology Date/Time Source Procedure Growth Status 06/28/24 13:33 Stool Stool Culture - Preliminary Resulted 06/28/24 13:33 Stool Shiga Toxin I & II - Final Resulted 06/28/24 13:33 Stool Clostridium difficile Toxin Assay Pending Resulted 06/28/24 13:13 Blood Blood Culture - Preliminary NO GROWTH AFTER 24 HOURS OF INCUBATION. Resulted 06/26/24 23:01 Nose MRSA Screen - Final Complete 06/26/24 12:07 Urine - [place] Urine Culture - Final Escherichia coli Complete Laboratory Results Laboratory Tests 06/30/24 04:59 Chemistry Test 06/30/24 04:59 Calcium Level 9.0 mg/dL (8.7-10.4) Urinalysis Test 06/26/24 12:07 Urine Color Light-yellow (Yellow) Urine Clarity Clear (Clear) Urine pH 5.5 (5.0-9.0) Urine Specific [place] 1.006 (1.001-1.035) Urine Protein Negative (Negative) Urine Ketones Negative (Negative) Urine Blood Negative /uL (Negative) Urine Nitrite 2+ (Negative) H Urine Bilirubin Negative (Negative) Urine Urobilinogen Normal mg/dL (Negative) Urine Leukocyte Esterase 3+ /uL (Negative) Urine RBC 2 /hpf (0 - 4) Urine WBC 52 /hpf (0 - 5) Urine Squamous Epithelial Cells None seen /hpf (<5) Urine Bacteria Few /hpf (None Seen) H Urine Glucose Normal mg/dL (Normal) Microbiology Microbiology Date/Time Source Procedure Growth Status 06/28/24 13:33 Stool Stool Culture - Preliminary Resulted 06/28/24 13:33 Stool Shiga Toxin I & II - Final Resulted 06/28/24 13:33 Stool Clostridium difficile Toxin Assay Pending Resulted 06/28/24 13:13 Blood Blood Culture - Preliminary NO GROWTH AFTER 24 HOURS OF INCUBATION. Resulted 06/26/24 23:01 Nose MRSA Screen - Final Complete 06/26/24 12:07 Urine - [place] Urine Culture - Final Escherichia coli Complete Date of Service: Jun 30, 2024 Billing Provider: CHASITY STEPHENS MD Common Visit Codes: [id number] INP/OBS CARE(HIGH) APRIL GILBERT RESIDENT Jun 30, 2024 07:37 CHASITY STEPHENS MD Jun 30, 2024 19:12
--- NOTE | 2024-06-30 14:51 | DVHPN2 ---
Progress Note Date Seen: Jun 30, 2024 Resident Creating Document: MAGY KELLEY RESIDENT Medical Necessity Reason Pt with a Central, PICC or Fol: Yes The following are medically ne: Young Catheter Subjective Review of Systems Patient seen and examined. Family by the bed side. No new complaints. She is drinking water, but unable to tolerate any other fluids meal. Overall symptoms to be mildly improved. Constitutional: Denies fever, chill, weight losse HEENT: Denies eye pain, no hearing loss, no oral lesion, no scleral icterus Cardiovascular: Denies chest pain, no chest pressure Respiratory: Denies cough, no dyspnea with exertion GI: No abdominal pain, just persistent nausea and vomiting : No frequency, no urgency, no hematuria, Heme/onc: Denies easy bruising, no bleeding disorders, epistasis, Psych: No evidence of depression, kandace, suicidal ideation Objective vital signs Vital Sign Date Time Temp Pulse Resp B/P (MAP) Pulse Ox O2 Delivery O2 Flow Rate FiO2 06/30/24 10:59 141/62 06/30/24 09:00 98.4 95 15 93 98.4 06/30/24 07:30 Room Air* 0 21 Total Intake and Output 06/29/24 06/29/24 06/30/24 15:00 23:00 07:00 Intake Total 50 ml 1000 ml 700 ml Output Total 1400 ml Balance 50 ml 1000 ml -700 ml medications Current Medications Medications Dose Ordered Sig/Pan Route Start Time Stop Time Status Last Admin Dose Admin Ceftriaxone Sodium 50 ml @ 100 mls/hr DAILY@09 IV 06/27/24 09:00 06/30/24 10:55 100 MLS/HR Hydralazine HCl 10 mg Q6HP PRN IV 06/26/24 15:00 Levothyroxine Sodium 25 mcg QAM@0600 PO 06/27/24 06:00 06/30/24 06:08 25 MCG Diagnostic Test (Pha) 1 strip ACHS 06/26/24 17:00 06/30/24 12:11 1 STRIP Insulin Human Regular ACHS SC 06/26/24 17:00 06/30/24 12:12 2 UNITS Dextrose 50 ml UD PRN IV 06/26/24 15:00 Ondansetron HCl 4 mg Q4HP PRN IV 06/26/24 15:00 06/30/24 11:02 4 MG Docusate Sodium 100 mg BIDPRN PRN PO 06/26/24 15:00 Acetaminophen 650 mg Q6HP PRN PO 06/26/24 15:00 Nitroglycerin 0.4 mg Q5MINP PRN SL 06/26/24 16:00 Sucralfate 1 gm QID@0600,1130,1700,2200 PO 06/27/24 17:00 06/30/24 12:11 1 GM Pantoprazole Sodium 40 mg DAILY@0630 IV 06/29/24 06:30 06/30/24 06:09 40 MG Olanzapine 5 mg DAILY PO 06/29/24 10:00 06/30/24 10:56 5 MG Losartan Potassium 50 mg DAILY PO 06/29/24 10:00 06/30/24 10:59 50 MG Buspirone HCl 5 mg Q12HR PO 06/29/24 22:00 06/30/24 10:57 5 MG Amlodipine Besylate 5 mg DAILY PO 06/30/24 14:45 UNV Examination General examination- not in any acute distress, AOx3 HEENT- [place], no acute nasal discharge Cardiovascular- S1-S2 audible, rate and rhythm regular, no murmur Respiratory- CTAB, no wheeze or rhonchi Gastrointestinal-Mild epigastric tenderness to palpation, +BS Musculoskeletal-no acute joint swelling or tenderness or redness Lower extremity- no leg edema Skin- no acute rash or purpura laboratory and microbiology Laboratory Tests 06/30/24 04:59 Test 06/30/24 04:59 Range/Units Serum Glucose 95 74-106 mg/dL Microbiology Date/Time Source Procedure Growth Status 06/28/24 13:33 Stool Stool Culture - Preliminary Resulted 06/28/24 13:33 Stool Shiga Toxin I & II - Final Resulted 06/28/24 13:33 Stool Clostridium difficile Toxin Assay - Final Resulted 06/28/24 13:13 Blood Blood Culture - Preliminary NO GROWTH AFTER 48 HOURS OF INCUBATION. Resulted 06/26/24 23:01 Nose MRSA Screen - Final Complete 06/26/24 12:07 Urine - [place] Urine Culture - Final Escherichia coli Complete Problem List/Assessment/Plan Problem List/Assessment/Plan Intractable nausea vomiting --> Lipase: unremarkable --> Small-bowel series with Gastrografin-- unremarkable --> [id number]: 11 wnl --> MRI: No acute intracranial process. Moderate to severe chronic microvascular ischemic changes in the supratentorial white matter. GERD Abdominal pain Multiple falls Anxiety UTI For colonoscopy early next week Plan: Monitor labs IV Zofran 4 mg q.4hr as needed for nausea and vomiting Carafate 1 g 4 times a day Protonix 40 daily Continue antibiotics for UTI Clear liquid diet magnesium citrate for bowel preparation Surgical consult for persistent nausea and vomiting GI lab is grossly negative. Her symptoms are probably psychologically related therefore we have her request her for psychiatric consultation We will continue to monitor the patient Goal of care discussed for more than 19 minute: Full code Case and plan discussed with Dr. Bledsoe Plan discussed with: Patient, Daughter, Son My Orders My Orders Orders - MAGY KELLEY Procedure Category Date Status Time * Psychiatric Consult CONS 06/29/24 Transmitted 16:50 Dietary Evaluation Review Comments: Continue current plan of care Expected Outcomes/Goals: F/U in 3-5 days MAGY KELLEY Jun 30, 2024 14:51
[2024-06-30] MEDS: amLODIPine BESYLATE 5 MG TAB PO SCH (17:49)
[2024-06-30] MEDS: MAGNESIUM CITRATE SOLUTION 300 ML BTL PO ONE (18:51)
[2024-07-01] VITALS (8 sets, daily range): BP systolic 110–138; BP diastolic 49–69; PULSE 93–106; RESP 18–20; TEMP 98–98.5; O2SAT 93–97
[2024-07-01 05:36] LABS: Basophils # (auto) 0.1 10 ^3/uL (0-0.2); Eosinophils # (auto) 0.4 10 ^3/uL (0-0.8); Eosinophils % (auto) 10.8 % (0.0-7.0); Hemoglobin 10.3 g/dL (12.2-16.2); Lymphocytes # (auto) 1.2 10 ^3/uL (0.4-5.4); Neutrophils # (auto) 1.6 10 ^3/uL (1.6-8.6); White Blood Cell 3.8 10^3/uL (4.4-10.8)
[2024-07-01 05:38] LABS: Basophils % (auto) 1.4 % (0.0-2.0); Hematocrit 32.4 % (36.0-46.0); Lymphocytes % (auto) 31.2 % (10.0-50.0); Mean Corpuscular Hemoglobin 23.6 pg (28.0-32.0); Mean Corpuscular Hgb Conc. 31.8 g/dL (32.0-36.0); Mean Corpuscular Volume 74.1 fL (80.0-100.0); Monocytes # (auto) 0.5 10 ^3/uL (0-1.3); Monocytes % (auto) 14.5 % (0.0-12.0); Neutrophils % (auto) 42.1 % (37.0-80.0); Nucleated Red Blood Cells % 0.2 %; Platelet Count (auto) 265 10^3/uL (140-450); Red Blood Cells 4.37 10^6/uL (4.0-5.20); Red Cell Distribution Width 19.8 % (11.8-14.3)
[2024-07-01 10:34] LABS: Chloride 112 mmol/L (98-107); Sodium 142 mmol/L (136-145)
[2024-07-01 10:35] LABS: Anion Gap 8 (5-15); Carbon Dioxide 22 mmol/L (20-31)
[2024-07-01 10:36] LABS: Calcium 8.9 mg/dL (8.7-10.4)
[2024-07-01 10:40] LABS: Glucose 104 mg/dL (74-106)
[2024-07-01 10:43] LABS: BUN/Creatinine Ratio 5.1 (10.0-20.0); Blood Urea Nitrogen < 5 mg/dL (9-23)
--- NOTE | 2024-07-01 11:04 | DVHPNRES ---
Progress Note Date Seen: Jul 01, 2024 Resident Creating Document: RICARDO العراقي RESIDENT Medical Necessity Reason Pt with a Central, PICC or Fol: Yes The following are medically ne: Young Catheter Subjective Review of Systems Patient is a year old female with past medical history of osteoarthritis, type 2 diabetes, dyslipidemia, thyroid disease, hypertension, dementia new in onset as reported by the family, heart failure with reduced ejection fraction 45%, left buttock skin tear, hypothyroidism, who came in due to generalized weakness accompanied with nausea, and vomiting. Patient has had similar episodes in the past with hospitalization twice in the past for similar episodes. Per patient's son, she is unable to keep any food or liquids down and ends up vomiting anything she tries to eat. Patient has completed workup for diabetic gastroparesis that came back negative, CT scan of the abdomen with and without contrast during previous hospitalizations also came back negative, patient completed an EGD during last hospitalization which was largely unremarkable except mild gastritis and erosive esophagitis. Serum sodium is 131, UA shows 2+ nitrites, 3+ leukocyte esterase, 52 WBCs and few bacteria. Patient is started on IV NS at 60 cc/hour and IV ceftriaxone. Past surgical history: Denies Home medications: Atorvastatin, furosemide, Past Hospitalization:Discharged May 28, 2024 from the [facility] for similar complaints of nausea and vomiting Social & Personal history: Lives with her son in [place]. Denies using tobacco, alcohol, drugs. Allergies: Denies Patient seen and examined at bedside. Patient is alert and oriented to time, place person and responding to all questions. Patient complains of severe generalized weakness and continued nausea. Reports 4 bowel movements in the last 24 hours. Denies any episodes of vomiting overnight, denies any active pain or discomfort. Objective vital signs Vital Sign Date Time Temp Pulse Resp B/P (MAP) Pulse Ox O2 Delivery O2 Flow Rate FiO2 07/01/24 08:41 98.4 99 18 110/62 (78) 93 98.4 07/01/24 08:00 Room Air* 0 21 Total Intake and Output 06/30/24 06/30/24 07/01/24 15:00 23:00 07:00 Intake Total 287 ml 500 ml 300 ml Output Total 450 ml 500 ml Balance 287 ml 50 ml -200 ml medications Current Medications Medications Dose Ordered Sig/Pan Route Start Time Stop Time Status Last Admin Dose Admin Ceftriaxone Sodium 50 ml @ 100 mls/hr DAILY@09 IV 06/27/24 09:00 07/01/24 08:33 100 MLS/HR Hydralazine HCl 10 mg Q6HP PRN IV 06/26/24 15:00 Levothyroxine Sodium 25 mcg QAM@0600 PO 06/27/24 06:00 07/01/24 06:06 25 MCG Diagnostic Test (Pha) 1 strip ACHS 06/26/24 17:00 07/01/24 06:06 1 STRIP Insulin Human Regular ACHS SC 06/26/24 17:00 06/30/24 21:16 2 UNITS Dextrose 50 ml UD PRN IV 06/26/24 15:00 Ondansetron HCl 4 mg Q4HP PRN IV 06/26/24 15:00 06/30/24 18:51 4 MG Docusate Sodium 100 mg BIDPRN PRN PO 06/26/24 15:00 Acetaminophen 650 mg Q6HP PRN PO 06/26/24 15:00 Nitroglycerin 0.4 mg Q5MINP PRN SL 06/26/24 16:00 Sucralfate 1 gm QID@0600,1130,1700,2200 PO 06/27/24 17:00 07/01/24 06:06 1 GM Pantoprazole Sodium 40 mg DAILY@0630 IV 06/29/24 06:30 07/01/24 06:06 40 MG Olanzapine 5 mg DAILY PO 06/29/24 10:00 07/01/24 08:33 5 MG Losartan Potassium 50 mg DAILY PO 06/29/24 10:00 07/01/24 08:34 50 MG Buspirone HCl 5 mg Q12HR PO 06/29/24 22:00 07/01/24 08:34 5 MG Amlodipine Besylate 5 mg DAILY PO 06/30/24 14:45 07/01/24 08:33 5 MG Examination General Appearance: Cooperative. Well developed. Well nourished. Dry mucous membranes Head Exam: Normal inspection Neck Exam: Normal inspection. Non-tender. Normal alignment Pulmonary/Respiratory: Chest non-tender. Clear bilateral breath sounds, no crackles, no wheezing. Cardiovascular/Chest: Regular rate and rhythm. A systolic murmur likely flow murmur grade 3-4. No JVD. Peripheral Pulses: 2+ Radial (R). 2+ Radial (L). 2+ Pedal (R). 2+ Pedal (L) Abdominal Exam: Normal bowel sounds. Distended but soft abdomen. normal abdomen, no visible veins, Nontender. No hepatospenomegaly. No masses Extremity, left upper extremity strength 3/5, right upper extremity strength 2/5 Ankle Exam: Negative ankle edema Lower extremities: Trace lower extremity edema. decreased b/l lower extremity strength Neuro/Mental Status: A&O x4. Coherent. Thoughts/Psych: Normal thought pattern. Appropriate mood and affect. Good judgement and insight Skin Exam: Normal inspection. Normal color. Warm. Dry laboratory and microbiology Laboratory Tests 07/01/24 05:02 Test 07/01/24 05:02 Range/Units Serum Glucose 104 74-106 mg/dL Microbiology Date/Time Source Procedure Growth Status 06/28/24 13:33 Stool Stool Culture - Final Complete 06/28/24 13:33 Stool Shiga Toxin I & II - Final Complete 06/28/24 13:33 Stool Clostridium difficile Toxin Assay - Final Complete 06/28/24 13:13 Blood Blood Culture - Preliminary NO GROWTH AFTER 48 HOURS OF INCUBATION. Resulted 06/26/24 23:01 Nose MRSA Screen - Final Complete 06/26/24 12:07 Urine - [place] Urine Culture - Final Escherichia coli Complete Problem List/Assessment/Plan Problem List/Assessment/Plan Intractable nausea and vomiting; ruled out achalasia Generalized weakness Hyponatremia, serum sodium 131, resolved Dehydration Leukopenia due to above - CT abdomen pelvis: No acute abdominal or pelvic finding. Left renal cysts. Degenerative changes in the spine. Calcified atherosclerotic disease. Right middle lobe nodule measuring up to 7 mm. Consider dedicated chest CT. - barium esophagogram: Mild esophageal reflux disease visualized. Contrast flows normally through the GE junction into the stomach. No achalasia visualized. - IV Zofran 4 mg q.4 as needed for nausea and vomiting - IV NS at 60 cc/hour - p.o. Carafate 1 g 4 times a day - Protonix 40 mg IV - ordered blood cultures, urine culture - ordered MRI head: There is no acute intracranial process. Moderate to severe chronic microvascular ischemic changes in the supratentorial white matter. - discontinued olanzapine 5 mg p.o. daily - scheduled for colonoscopy Acute complicated UTI - UA: 2+ nitrites, 3+ leukocyte esterase, 52 WBCs and few bacteria - IV ceftriaxone Gastroenteritis, Campylobacter jejuni - stool wbc, stool culture, stool c.diff ordered - treatment currently not indicated, we will continue to monitor Anxiety disorder, not otherwise specified - psych consulted - Buspirone 5 mg p.o. b.i.d. Heart failure with reduced ejection fraction 35%, currently stable - CXR: No acute disease - ordered BNP; 64.48 - we will continue to monitor Sacral wound, present on admission - patient states she noted some bleeding on her sheets likely from the wound - ordered wound consult Hypertension Dyslipidemia - patient is running low blood pressure, holding home antihypertensive medications - we will continue to monitor - losartan 50 mg p.o. daily - amlodipine 5 mg p.o. daily History of Hypothyroidism - TSH 2.06 - levothyroxine 25 mcg q.a.m. - we will continue to monitor Type 2 diabetes, uncontrolled Hb A1c 8.1% on 05/15/2024 - sliding scale insulin Iron deficiency anemia - ordered iron panel: Serum iron 22, TIBC 284, % saturation 7.7 - we will continue to monitor Hypokalemia - replace potassium PUD prophylaxis: IV Protonix 40 mg DVT prophylaxis: SCD Goals of care: Full code, discussed for >16 minutes on 06/27/24 Plan discussed with patient Plan discussed with Dr. Rangel Plan discussed with: Patient, Son, Other (RN) Dietary Evaluation Review Comments: Continue current plan of care Expected Outcomes/Goals: F/U in 3-5 days Date of Service: Jul 01, 2024 Billing Provider: CHASITY RANGEL MD Common Visit Codes: [id number] INP/OBS CARE(HIGH) RICARDO العراقي RESIDENT Jul 01, 2024 11:04 CHASITY RANGEL MD Jul 02, 2024 06:19
[2024-07-01] MEDS: NALOXONE HCL 0.4 MG/ML VIAL IV ONE (12:04)
[2024-07-01 12:07] LABS: Base Excess -5.3 mmol/L (-2.0-3.0)
--- NOTE | 2024-07-01 12:18 | RESUS ---
CODE ASSIST ASSESSSMENT Initial Information Code Assist Date: Jul 01, 2024 Code Assist Time: 11:45 Location of Arrest: Central Room # 205 Provider Name Benjy - Hospitalist / Odell - Resident Time Notified: 11:45 Time PMD returned call: 11:45 Crash Cart Opened and Supplies: No Situation Staff concerned/worried, speci: Non-responsive Situation comment: Pt last seen WNL approximately 30 minutes prior by son at bedside. Per primary RN, pt became unresponsive to name and tactile stimuli. Background Background: Pt admitted on 06/26/24 for generalized weakness. Assessment Temperature (Fahrenheit): 98.4 Blood Pressure Systolic: 143 Blood Pressure Diastolic: 51 Respiratory Rate: 16 O2 Sat by Pulse Oximetry: 100 Bedside Blood Glucose: 156 Assessment comment: Pt placed on 2L O2 via NC with 100% O2 Saturation. Nonresponsive to sternal rub. Recommendations/Interventions Medications and Responses : ADULT Medications Given: Narcan 0.4 mg IVP MRx1 Route of Administration: IV Medication Comment: Pt awakened and speaking approx 30 seconds after administering Narcan. Heart Rate: 91 EKG Rhythm: Sinus Rhythm Blood Pressure Systolic: 123 Blood Pressure Diastolic: 48 Respiratory Rate: 22 O2 Sat by Pulse Oximetry: 100 Procedures: ABG, CMP, CBC Other Interventions Lactic acid, UDS Outcome Outcome: Problem Resolved Follow up Report Follow up Report UDS ordered d/t no narcotics prescribed to patient in [facility] for hospitalization Team Members Team Members Dr Burleson - Hospitalist; Dr Nunez - Resident; Jerilyn Ricci RN - ICU charge; Zara Berg RN - Senior Sales Assistant; Evi Muse RN; Tamra Canchola RN - Central Charge; Maxx Stiles RN - West Charge; Shayla Lucas RN - Primary RN; RT Percy Cassidy Ashley Jul 01, 2024 12:18
[2024-07-01 12:23] LABS: Basophils # (auto) 0.1 10 ^3/uL (0-0.2); Eosinophils # (auto) 0.4 10 ^3/uL (0-0.8); Lymphocytes # (auto) 0.9 10 ^3/uL (0.4-5.4); Mean Corpuscular Hemoglobin 23.5 pg (28.0-32.0); Monocytes # (auto) 0.6 10 ^3/uL (0-1.3); Neutrophils # (auto) 1.9 10 ^3/uL (1.6-8.6); White Blood Cell 3.8 10^3/uL (4.4-10.8)
[2024-07-01 12:25] LABS: Basophils % (auto) 1.5 % (0.0-2.0); Eosinophils % (auto) 10.5 % (0.0-7.0); Hemoglobin 9.4 g/dL (12.2-16.2); Lymphocytes % (auto) 23.5 % (10.0-50.0); Mean Corpuscular Hgb Conc. 31.4 g/dL (32.0-36.0); Mean Corpuscular Volume 74.8 fL (80.0-100.0); Monocytes % (auto) 15.3 % (0.0-12.0); Neutrophils % (auto) 49.2 % (37.0-80.0); Nucleated Red Blood Cells % 0.1 %; Platelet Count (auto) 233 10^3/uL (140-450); Red Blood Cells 4.01 10^6/uL (4.0-5.20); Red Cell Distribution Width 19.8 % (11.8-14.3)
[2024-07-01 12:54] LABS: Chloride 110 mmol/L (98-107); Potassium 3.5 mmol/L (3.5-5.1); Sodium 140 mmol/L (136-145)
[2024-07-01 12:55] LABS: Anion Gap 7 (5-15); Carbon Dioxide 23 mmol/L (20-31)
[2024-07-01 12:56] LABS: Calcium 8.7 mg/dL (8.7-10.4)
[2024-07-01 13:00] LABS: Glucose 147 mg/dL (74-106)
[2024-07-01 13:01] LABS: BUN/Creatinine Ratio 5.3 (10.0-20.0); Blood Urea Nitrogen < 5 mg/dL (9-23)
[2024-07-01] MEDS: NALOXONE HCL 0.4 MG/ML VIAL ONE (14:18)
[2024-07-01] MEDS: GOLYTELY 4L KIT PO ONE (14:30)
[2024-07-01] MEDS: SODIUM CHLORIDE 0.9% 1,000 ML IV SCH (14:41)
--- NOTE | 2024-07-01 18:58 | DVHPN2 ---
Progress Note - Dictate Date Seen: Jul 01, 2024 Medical Necessity Reason Pt with a Central, PICC or Fol: Yes The following are medically ne: Young Catheter Subjective Patient had a code assist today because of somnolence Zyprexa was discontinued; patient was treated with IV Narcan Patient is starting to wake up and is tolerating some clear liquids She did drink a bottle of Mag citrate partially last night and had four small bowel movements Urine culture showed E coli patient is currently on IV Rocephin vital signs Vital Sign Date Time Temp Pulse Resp B/P (MAP) Pulse Ox O2 Delivery O2 Flow Rate FiO2 07/01/24 17:00 98.5 93 18 131/53 (79) 97 98.5 07/01/24 08:00 Room Air* 0 21 Total Intake and Output 06/30/24 06/30/24 07/01/24 15:00 23:00 07:00 Intake Total 287 ml 500 ml 300 ml Output Total 450 ml 500 ml Balance 287 ml 50 ml -200 ml medications Current Medications Medications Dose Ordered Sig/Pan Route Start Time Stop Time Status Last Admin Dose Admin Ceftriaxone Sodium 50 ml @ 100 mls/hr DAILY@09 IV 06/27/24 09:00 07/01/24 08:33 100 MLS/HR Hydralazine HCl 10 mg Q6HP PRN IV 06/26/24 15:00 Levothyroxine Sodium 25 mcg QAM@0600 PO 06/27/24 06:00 07/01/24 06:06 25 MCG Diagnostic Test (Pha) 1 strip ACHS 06/26/24 17:00 07/01/24 17:00 1 STRIP Insulin Human Regular ACHS SC 06/26/24 17:00 07/01/24 11:30 2 UNITS Dextrose 50 ml UD PRN IV 06/26/24 15:00 Ondansetron HCl 4 mg Q4HP PRN IV 06/26/24 15:00 06/30/24 18:51 4 MG Docusate Sodium 100 mg BIDPRN PRN PO 06/26/24 15:00 Acetaminophen 650 mg Q6HP PRN PO 06/26/24 15:00 Nitroglycerin 0.4 mg Q5MINP PRN SL 06/26/24 16:00 Sucralfate 1 gm QID@0600,1130,1700,2200 PO 06/27/24 17:00 11/3/24 18:29 1 GM Pantoprazole Sodium 40 mg DAILY@0630 IV 06/29/24 06:30 07/01/24 06:06 40 MG Losartan Potassium 50 mg DAILY PO 06/29/24 10:00 07/01/24 08:34 50 MG Buspirone HCl 5 mg Q12HR PO 06/29/24 22:00 07/01/24 08:34 5 MG Amlodipine Besylate 5 mg DAILY PO 06/30/24 14:45 07/01/24 08:33 5 MG Sodium Chloride 1,000 ml @ 75 mls/hr [id number] IV 07/01/24 14:15 07/01/24 14:41 75 MLS/HR objective Patient is lethargic but arousable Pupils equal and react to light, extraocular muscles are intact Lungs are clear, S1-S2 regular rate rhythm Abdomen is soft nontender nondistended , obese Extremities show no clubbing cyanosis or edema laboratory and microbiology Laboratory Tests 07/01/24 12:00 Test 07/01/24 12:00 Range/Units Serum Glucose 147 H 74-106 mg/dL Problems(with codes): (1) Diabetes mellitus with hyperglycemia (2) Hyponatremia (3) Generalized weakness (4) Projectile vomiting with nausea (5) Intractable abdominal pain (6) Complicated urinary tract infection Prognosis Plan There is a plan for tentative colonoscopy tomorrow for evaluation of anemia and chronic GI symptoms If the patient wakes up enough and is able to drink her bowel prep I will proceed with that If the patient is not stable I will cancel that tomorrow and defer to a further time If the patient clinically does not improve there is consideration for possible PEG tube placement Patient may need TPN as an alternative We will discuss with the family in the morning Monitor labs ; vitamin B12 level in a.m., continue IV antibiotics and check urine culture Prognosis guarded Dietary Evaluation Review Comments: Continue current plan of care Expected Outcomes/Goals: F/U in 3-5 days Plan discussed with: Son, Other (Nurse and Dr Joe) FIFI CHUN MD Jul 01, 2024 18:58
[2024-07-02] VITALS (12 sets, daily range): BP systolic 123–157; BP diastolic 59–64; PULSE 84–99; RESP 18–22; TEMP 97.8–99.9; O2SAT 93–100
[2024-07-02] MEDS: GOLYTELY 4L KIT PO ONE (07:13)
[2024-07-02] MEDS: MAGNESIUM CITRATE SOLUTION 300 ML BTL PO ONE (07:23)
[2024-07-02 07:49] LABS: Basophils # (auto) 0.1 10 ^3/uL (0-0.2); Eosinophils # (auto) 0.4 10 ^3/uL (0-0.8); Hemoglobin 10.1 g/dL (12.2-16.2); Lymphocytes # (auto) 1.2 10 ^3/uL (0.4-5.4); Mean Corpuscular Hgb Conc. 30.6 g/dL (32.0-36.0); Mean Corpuscular Volume 75.2 fL (80.0-100.0); Monocytes # (auto) 0.5 10 ^3/uL (0-1.3); White Blood Cell 3.6 10^3/uL (4.4-10.8)
[2024-07-02 07:50] LABS: Chloride 111 mmol/L (98-107); Potassium 3.4 mmol/L (3.5-5.1); Sodium 143 mmol/L (136-145)
[2024-07-02 07:51] LABS: Anion Gap 8 (5-15); Basophils % (auto) 1.8 % (0.0-2.0); Calcium 8.6 mg/dL (8.7-10.4); Carbon Dioxide 24 mmol/L (20-31); Eosinophils % (auto) 11.6 % (0.0-7.0); Lymphocytes % (auto) 33.9 % (10.0-50.0); Monocytes % (auto) 13.4 % (0.0-12.0); Neutrophils # (auto) 1.4 10 ^3/uL (1.6-8.6); Neutrophils % (auto) 39.3 % (37.0-80.0); Nucleated Red Blood Cells % 0.2 %; Platelet Count (auto) 290 10^3/uL (140-450); Red Blood Cells 4.39 10^6/uL (4.0-5.20)
[2024-07-02 07:56] LABS: Glucose 103 mg/dL (74-106)
[2024-07-02 08:03] LABS: BUN/Creatinine Ratio 5.4 (10.0-20.0); Blood Urea Nitrogen < 5 mg/dL (9-23)
[2024-07-02 08:27] LABS: INR 1.19 (0.9-1.15); Partial Thromboplastin Time 30.1 SEC (24.5-34.5); Prothrombin Time 12.5 sec (9.3-11.8)
[2024-07-02] MEDS: OLANZapine 5 MG TAB PO ONE (10:15)
[2024-07-02] MEDS ORDERED: PROPOFOL 10 MG/ML 20 ML IV ONE (11:41)
[2024-07-02] MEDS ORDERED: fentaNYL CITRATE 100 MCG/2 ML VL ONE (11:41)
--- NOTE | 2024-07-02 11:56 | DVHOP2 ---
Operative Report DATE OF OPERATION: 07/02/24 PROCEDURE: Colonoscopy with cold biopsy polypectomy. PREOPERATIVE INDICATION: The patient is a 83 -year-old female undergoing colonoscopy for evaluation of chronic abdominal pain nausea vomiting and colon cancer screening POSTOPERATIVE DIAGNOSES: 1. 2-3 mm benign-appearing polyp was seen on the ileocecal valve and removed completely via cold biopsy forceps 2. Trace internal hemorrhoids otherwise normal examination up to the cecum and terminal ileum PROCEDURE PERFORMED BY: Fifi Bledsoe M.D. SCOPE: Olympus videocolonoscope. ASA CLASS: 3. PREOPERATIVE MEDICATIONS: Dr. Claire Horton PROCEDURE IN DETAIL: After obtaining an informed consent, the patient was placed on left lateral decubitus position. She was then sedated with the above medications. A rectal examination was performed that was normal. The colonoscope was then passed through the anus into the rectosigmoid and through the descending, transverse, and ascending colon up to the cecum with visualization of the appendiceal orifice, base of the cecum and the ileocecal valve. The colonoscope was then withdrawn. The distal 3-5 cm of the terminal ileum were normal There was a 2-3 mm benign-appearing polyp seen on the ileocecal valve. This was removed completely via cold biopsy forceps The colonoscope was then withdrawn with careful visualization of all anders. No other masses or polyps were seen. There was no clear-cut diverticular disease and no colitis . On retroflexion she had trace internal hemorrhoids The patient tolerated the procedure well without difficulty. WITHDRAWAL TIME: 7 minute QUALITY OF THE PREP: [place] Bowel Prep score: 9. COMPLICATIONS : None SPECIMENS: Ileocecal valve/ascending colon polyp DISPOSITION: Transfer back to the floor Stable PLAN: 1. Repeat colonoscopy based on biopsy results likely in five years 2. Resume full liquid diet advance as tolerated 3. Increase fluid and fiber intake 4. Outpatient follow up with me in 4-6 weeks to review results and discuss further management FIFI BLEDSOE MD Jul 02, 2024 11:56
--- NOTE | 2024-07-02 12:58 | DVHPNRES ---
Progress Note Date Seen: Jul 02, 2024 Resident Creating Document: RICARDO العراقي RESIDENT Medical Necessity Reason Pt with a Central, PICC or Fol: Yes The following are medically ne: Young Catheter Subjective Review of Systems Patient is a year old female with past medical history of osteoarthritis, type 2 diabetes, dyslipidemia, thyroid disease, hypertension, dementia new in onset as reported by the family, heart failure with reduced ejection fraction 45%, left buttock skin tear, hypothyroidism, who came in due to generalized weakness accompanied with nausea, and vomiting. Patient has had similar episodes in the past with hospitalization twice in the past for similar episodes. Per patient's son, she is unable to keep any food or liquids down and ends up vomiting anything she tries to eat. Patient has completed workup for diabetic gastroparesis that came back negative, CT scan of the abdomen with and without contrast during previous hospitalizations also came back negative, patient completed an EGD during last hospitalization which was largely unremarkable except mild gastritis and erosive esophagitis. Serum sodium is 131, UA shows 2+ nitrites, 3+ leukocyte esterase, 52 WBCs and few bacteria. Patient is started on IV NS at 60 cc/hour and IV ceftriaxone. Past surgical history: Denies Home medications: Atorvastatin, furosemide, Past Hospitalization:Discharged May 28, 2024 from the [facility] for similar complaints of nausea and vomiting Social & Personal history: Lives with her son in [place]. Denies using tobacco, alcohol, drugs. Allergies: Denies Patient seen and examined at bedside. Patient is alert and oriented to time, place person and responding to all questions. Patient complains of severe generalized weakness and continued nausea. Reports 4 bowel movements in the last 24 hours. Denies any episodes of vomiting overnight, denies any active pain or discomfort. Objective vital signs Vital Sign Date Time Temp Pulse Resp B/P (MAP) Pulse Ox O2 Delivery O2 Flow Rate FiO2 07/02/24 09:11 124/62 07/02/24 09:00 98.4 94 18 93 98.4 07/02/24 08:00 Room Air* 0 21 Total Intake and Output 07/01/24 07/01/24 07/02/24 15:00 23:00 07:00 Intake Total 50 ml 860 ml 400 ml Output Total 500 ml 200 ml Balance 50 ml 360 ml 200 ml medications Current Medications Medications Dose Ordered Sig/Pan Route Start Time Stop Time Status Last Admin Dose Admin Ceftriaxone Sodium 50 ml @ 100 mls/hr DAILY@09 IV 06/27/24 09:00 07/02/24 09:12 100 MLS/HR Hydralazine HCl 10 mg Q6HP PRN IV 06/26/24 15:00 Levothyroxine Sodium 25 mcg QAM@0600 PO 06/27/24 06:00 07/02/24 07:02 25 MCG Diagnostic Test (Pha) 1 strip ACHS 06/26/24 17:00 07/02/24 07:02 1 STRIP Insulin Human Regular ACHS SC 06/26/24 17:00 07/01/24 21:42 2 UNITS Dextrose 50 ml UD PRN IV 06/26/24 15:00 Docusate Sodium 100 mg BIDPRN PRN PO 06/26/24 15:00 Acetaminophen 650 mg Q6HP PRN PO 06/26/24 15:00 Nitroglycerin 0.4 mg Q5MINP PRN SL 06/26/24 16:00 Sucralfate 1 gm QID@0600,1130,1700,2200 PO 06/27/24 17:00 07/02/24 07:01 1 GM Pantoprazole Sodium 40 mg DAILY@0630 IV 06/29/24 06:30 07/02/24 07:02 40 MG Losartan Potassium 50 mg DAILY PO 06/29/24 10:00 07/02/24 09:11 50 MG Amlodipine Besylate 5 mg DAILY PO 06/30/24 14:45 07/02/24 09:11 5 MG Sodium Chloride 1,000 ml @ 75 mls/hr [id number] IV 07/01/24 14:15 07/01/24 14:41 75 MLS/HR Haloperidol Lactate 2.5 mg QIDP PRN IM 07/02/24 10:15 Olanzapine 5 mg DAILY PO 07/03/24 10:00 Examination General Appearance: Cooperative. Well developed. Well nourished. Dry mucous membranes Head Exam: Normal inspection Neck Exam: Normal inspection. Non-tender. Normal alignment Pulmonary/Respiratory: Chest non-tender. Clear bilateral breath sounds, no crackles, no wheezing. Cardiovascular/Chest: Regular rate and rhythm. A systolic murmur likely flow murmur grade 3-4. No JVD. Peripheral Pulses: 2+ Radial (R). 2+ Radial (L). 2+ Pedal (R). 2+ Pedal (L) Abdominal Exam: Normal bowel sounds. Distended but soft abdomen. normal abdomen, no visible veins, Nontender. No hepatospenomegaly. No masses Extremity, left upper extremity strength 3/5, right upper extremity strength 2/5 Ankle Exam: Negative ankle edema Lower extremities: Trace lower extremity edema. decreased b/l lower extremity strength Neuro/Mental Status: A&O x4. Coherent. Thoughts/Psych: Normal thought pattern. Appropriate mood and affect. Good judgement and insight Skin Exam: Normal inspection. Normal color. Warm. Dry laboratory and microbiology Laboratory Tests 07/02/24 07:30 Test 07/02/24 07:30 Range/Units Serum Glucose 103 74-106 mg/dL Microbiology Date/Time Source Procedure Growth Status 06/28/24 13:33 Stool Stool Culture - Final Complete 06/28/24 13:33 Stool Shiga Toxin I & II - Final Complete 06/28/24 13:33 Stool Clostridium difficile Toxin Assay - Final Complete 06/28/24 13:13 Blood Blood Culture - Preliminary NO GROWTH AFTER 72 HOURS OF INCUBATION. Resulted 06/26/24 23:01 Nose MRSA Screen - Final Complete 06/26/24 12:07 Urine - [place] Urine Culture - Final Escherichia coli Complete Problem List/Assessment/Plan Problem List/Assessment/Plan Intractable nausea and vomiting; ruled out achalasia Generalized weakness Hyponatremia, serum sodium 131, resolved Dehydration Leukopenia due to above - CT abdomen pelvis: No acute abdominal or pelvic finding. Left renal cysts. Degenerative changes in the spine. Calcified atherosclerotic disease. Right middle lobe nodule measuring up to 7 mm. Consider dedicated chest [address] - barium esophagogram: Mild esophageal reflux disease visualized. Contrast flows normally through the GE junction into the stomach. No achalasia visualized. - IV Zofran 4 mg q.4 as needed for nausea and vomiting - IV NS at 60 cc/hour - p.o. Carafate 1 g 4 times a day - Protonix 40 mg IV - ordered blood cultures, urine culture - ordered MRI head: There is no acute intracranial process. Moderate to severe chronic microvascular ischemic changes in the supratentorial white matter. - resumed olanzapine 5 mg p.o. daily - Haldol 2.5 mg IM Q 8 hours as needed for nausea vomiting - scheduled for colonoscopy Acute complicated UTI - UA: 2+ nitrites, 3+ leukocyte esterase, 52 WBCs and few bacteria - IV ceftriaxone Gastroenteritis, Campylobacter jejuni - stool wbc, stool culture, stool c.diff ordered - treatment currently not indicated, we will continue to monitor Anxiety disorder, not otherwise specified - psych consulted - discontinued Buspirone 5 mg p.o. b.i.d. Heart failure with reduced ejection fraction 35%, currently stable - CXR: No acute disease - ordered BNP; 64.48 - we will continue to monitor Sacral wound, present on admission - patient states she noted some bleeding on her sheets likely from the wound - ordered wound consult Hypertension Dyslipidemia - patient is running low blood pressure, holding home antihypertensive medications - we will continue to monitor - losartan 50 mg p.o. daily - amlodipine 5 mg p.o. daily History of Hypothyroidism - TSH 2.06 - levothyroxine 25 mcg q.a.m. - we will continue to monitor Type 2 diabetes, uncontrolled Hb A1c 8.1% on 05/15/2024 - sliding scale insulin Iron deficiency anemia - ordered iron panel: Serum iron 22, TIBC 284, % saturation 7.7 - we will continue to monitor Hypokalemia - replace potassium PUD prophylaxis: IV Protonix 40 mg DVT prophylaxis: SCD Goals of care: Full code, discussed for >16 minutes on 06/27/24 Plan discussed with patient Plan discussed with Dr. Franco Plan discussed with: Patient, Daughter, Son, Other (RN) My Orders My Orders Orders - RICARDO العراقي RESIDENT Procedure Category Date Status Time Sodium Chloride 0.9% PHA 07/01/24 In Process 14:15 Haloperidol Lactate PHA 07/02/24 In Process Injection (Haldol) 10:15 Olanzapine Tablet PHA 07/03/24 In Process (Zyprexa Tablet) 10:00 Delerium Tremors ABELARDO 07/02/24 In Process Precautions 10:06 Dietary Evaluation Review Comments: Continue current plan of care Expected Outcomes/Goals: F/U in 3-5 days Date of Service: Jul 02, 2024 Billing Provider: RAULITO FRANCO MD Common Visit Codes: [id number] INP/OBS CARE(HIGH) Secondary Visit Codes: [id number] CARE PLAN 30 MINUTES Coding Comment Comment I saw and evaluated the patient. I reviewed the residents note and agree with findings and plan as documented in the residents note. More than 30 minutes spent in advanced care planning, including discussing code status, medical decision maker, goals of care and disposition planning. Further discussions will be held while medical decision maker is in the hospital regarding specifically goals of care and insertion of PEG tube RICARDO العراقي Jul 02, 2024 12:58 RAULITO FRANCO MD Jul 02, 2024 21:04
[2024-07-02] MEDS: POTASSIUM CHL 20MEQ/100ML 100 ML IV ONE (13:28)
--- NOTE | 2024-07-02 14:58 | CONS ---
Pharmacy Clinical Information: Patient from [facility] HF application. Patient is currently taking atorvastatin at home. Please note that the patient is not able to hold down food due to nausea and vomiting, however, she is able to take PO medications and therefore can be recommended to restart lipid lowering agent. TAMMY SANTIZO PHARMACIST Jul 02, 2024 14:58
[2024-07-02] MEDS: IPRATROPIUM BROM 0.5 MG/2.5ML INH SOL NEB PRN (15:19)
[2024-07-02] MEDS: ALBUTEROL SULF 2.5 MG/0.5ML(0.5%) NEB SOLN NEB PRN (15:19)
[2024-07-02] MEDS: POTASSIUM EFFERVESENT TAB 25 MEQ PO ONE (17:00)
[2024-07-03] VITALS (10 sets, daily range): BP systolic 127–163; BP diastolic 47–77; PULSE 85–103; RESP 17–20; TEMP 97.9–99.1; O2SAT 92–98
[2024-07-03] MEDS: hydrALAZINE HCL 20 MG/ML VL IV PRN (06:21)
[2024-07-03] MEDS: HALOPERIDOL LACTATE 5 MG/ML INJ VIAL IM PRN (09:48)
[2024-07-03] MEDS: OLANZapine 5 MG TAB PO SCH (09:59)
[2024-07-03] MEDS: amLODIPine BESYLATE 5 MG TAB PO ONE (10:45)
--- NOTE | 2024-07-03 10:46 | DVHPNRES ---
Progress Note Date Seen: Jul 03, 2024 Resident Creating Document: RICARDO العراقي RESIDENT Medical Necessity Reason Pt with a Central, PICC or Fol: Yes The following are medically ne: Young Catheter Subjective Review of Systems Patient is a year old female with past medical history of osteoarthritis, type 2 diabetes, dyslipidemia, thyroid disease, hypertension, dementia new in onset as reported by the family, heart failure with reduced ejection fraction 45%, left buttock skin tear, hypothyroidism, who came in due to generalized weakness accompanied with nausea, and vomiting. Patient has had similar episodes in the past with hospitalization twice in the past for similar episodes. Per patient's son, she is unable to keep any food or liquids down and ends up vomiting anything she tries to eat. Patient has completed workup for diabetic gastroparesis that came back negative, CT scan of the abdomen with and without contrast during previous hospitalizations also came back negative, patient completed an EGD during last hospitalization which was largely unremarkable except mild gastritis and erosive esophagitis. Serum sodium is 131, UA shows 2+ nitrites, 3+ leukocyte esterase, 52 WBCs and few bacteria. Patient is started on IV NS at 60 cc/hour and IV ceftriaxone. Past surgical history: Denies Home medications: Atorvastatin, furosemide, Past Hospitalization:Discharged May 28, 2024 from the [facility] for similar complaints of nausea and vomiting Social & Personal history: Lives with her son in [place]. Denies using tobacco, alcohol, drugs. Allergies: Denies Patient seen and examined at bedside. Patient is alert and oriented to time, place person and responding to all questions. Patient complains of severe generalized weakness and continued nausea. Reports 4 bowel movements in the last 24 hours. Denies any episodes of vomiting overnight, reports severe b/l knee pain. Conversation with family was held at bedside where benefits and risks of PEG tube placement were discussed with them. Patient's family would like to continue care at home, we will trial a diet of home cooked meal and see if patient is able to tolerate p.o. intake. If patient can tolerate [id number] amounts of home cooked meal, we will discharge tomorrow. Objective vital signs Vital Sign Date Time Temp Pulse Resp B/P (MAP) Pulse Ox O2 Delivery O2 Flow Rate FiO2 07/03/24 09:50 162/47 07/03/24 09:00 97.9 86 19 94 97.9 07/02/24 20:00 Room Air* 0 21 Total Intake and Output 07/02/24 07/02/24 07/03/24 15:00 23:00 07:00 Intake Total 50 ml 50 ml 400 ml Output Total 425 ml 850 ml Balance 50 ml -375 ml -450 ml medications Current Medications Medications Dose Ordered Sig/Pan Route Start Time Stop Time Status Last Admin Dose Admin Ceftriaxone Sodium 50 ml @ 100 mls/hr DAILY@09 IV 06/27/24 09:00 07/03/24 09:48 100 MLS/HR Hydralazine HCl 10 mg Q6HP PRN IV 06/26/24 15:00 07/03/24 06:21 10 MG Levothyroxine Sodium 25 mcg QAM@0600 PO 06/27/24 06:00 07/03/24 06:20 25 MCG Diagnostic Test (Pha) 1 strip ACHS 06/26/24 17:00 07/03/24 06:24 1 STRIP Insulin Human Regular ACHS SC 06/26/24 17:00 07/01/24 21:42 2 UNITS Dextrose 50 ml UD PRN IV 06/26/24 15:00 Docusate Sodium 100 mg BIDPRN PRN PO 06/26/24 15:00 Acetaminophen 650 mg Q6HP PRN PO 06/26/24 15:00 Nitroglycerin 0.4 mg Q5MINP PRN SL 06/26/24 16:00 Sucralfate 1 gm QID@0600,1130,1700,2200 PO 06/27/24 17:00 07/03/24 06:14 1 GM Pantoprazole Sodium 40 mg DAILY@0630 IV 06/29/24 06:30 07/03/24 06:23 40 MG Losartan Potassium 50 mg DAILY PO 06/29/24 10:00 07/03/24 09:50 50 MG Amlodipine Besylate 5 mg DAILY PO 06/30/24 14:45 07/03/24 09:49 5 MG Sodium Chloride 1,000 ml @ 75 mls/hr [id number] IV 07/01/24 14:15 07/01/24 14:41 75 MLS/HR Haloperidol Lactate 2.5 mg QIDP PRN IM 07/02/24 10:15 07/03/24 09:48 2.5 MG Olanzapine 5 mg DAILY PO 07/03/24 10:00 Ipratropium Tillar 0.5 mg Q6HPRN PRN NEB 07/02/24 15:00 07/02/24 15:19 0.5 MG Albuterol 2.5 mg Q6HPRN PRN NEB 07/02/24 15:00 07/02/24 15:19 2.5 MG Examination General Appearance: Cooperative. Well developed. Well nourished. Dry mucous membranes Head Exam: Normal inspection Neck Exam: Normal inspection. Non-tender. Normal alignment Pulmonary/Respiratory: Chest non-tender. Clear bilateral breath sounds, no crackles, no wheezing. Cardiovascular/Chest: Regular rate and rhythm. A systolic murmur likely flow murmur grade 3-4. No JVD. Peripheral Pulses: 2+ Radial (R). 2+ Radial (L). 2+ Pedal (R). 2+ Pedal (L) Abdominal Exam: Normal bowel sounds. Distended but soft abdomen. normal abdomen, no visible veins, Nontender. No hepatospenomegaly. No masses Extremity, left upper extremity strength 3/5, right upper extremity strength 2/5 Ankle Exam: Negative ankle edema Lower extremities: Trace lower extremity edema. decreased b/l lower extremity strength Neuro/Mental Status: A&O x4. Coherent. Thoughts/Psych: Normal thought pattern. Appropriate mood and affect. Good judgement and insight Skin Exam: Normal inspection. Normal color. Warm. Dry laboratory and microbiology Laboratory Tests 07/02/24 07:30 Test 07/02/24 07:30 Range/Units Serum Glucose 103 74-106 mg/dL Microbiology Date/Time Source Procedure Growth Status 06/28/24 13:33 Stool Stool Culture - Final Complete 06/28/24 13:33 Stool Shiga Toxin I & II - Final Complete 06/28/24 13:33 Stool Clostridium difficile Toxin Assay - Final Complete 06/28/24 13:13 Blood Blood Culture - Preliminary NO GROWTH AFTER 72 HOURS OF INCUBATION. Resulted 06/26/24 23:01 Nose MRSA Screen - Final Complete 06/26/24 12:07 Urine - [place] Urine Culture - Final Escherichia coli Complete Labs and/or images reviewed: Labs reviewed by me, Image(s) reviewed by me Problem List/Assessment/Plan Problem List/Assessment/Plan Intractable nausea and vomiting; ruled out achalasia Generalized weakness Hyponatremia, serum sodium 131, resolved Dehydration Leukopenia due to above - CT abdomen pelvis: No acute abdominal or pelvic finding. Left renal cysts. Degenerative changes in the spine. Calcified atherosclerotic disease. Right middle lobe nodule measuring up to 7 [address] - barium esophagogram: Mild esophageal reflux disease visualized. Contrast flows normally through the GE junction into the stomach. No achalasia visualized. - IV Zofran 4 mg q.4 as needed for nausea and vomiting - IV NS at 60 cc/hour - p.o. Carafate 1 g 4 times a day - Protonix 40 mg IV - ordered blood cultures, urine culture - ordered MRI head: There is no acute intracranial process. Moderate to severe chronic microvascular ischemic changes in the supratentorial white matter. - resumed olanzapine 5 mg p.o. daily - Haldol 2.5 mg IM Q 8 hours as needed for nausea vomiting - scheduled for colonoscopy: 2-3 mm benign-appearing polyp was seen in the ileocecal valve and removed completely via cold biopsy forceps. Trace internal hemorrhoids otherwise normal examination up to the cecum and terminal ileum. Acute complicated UTI - UA: 2+ nitrites, 3+ leukocyte esterase, 52 WBCs and few bacteria - IV ceftriaxone Gastroenteritis, Campylobacter jejuni - stool wbc, stool culture, stool c.diff ordered - treatment currently not indicated, we will continue to monitor Anxiety disorder, not otherwise specified - psych consulted - discontinued Buspirone 5 mg p.o. b.i.d. Heart failure with reduced ejection fraction 35%, currently stable - CXR: No acute disease - ordered BNP; 64.48 - we will continue to monitor Sacral wound, present on admission - patient states she noted some bleeding on her sheets likely from the wound - ordered wound consult Hypertension Dyslipidemia - patient is running low blood pressure, holding home antihypertensive medications - we will continue to monitor - losartan 50 mg p.o. daily - amlodipine 5 mg p.o. daily History of Hypothyroidism - TSH 2.06 - levothyroxine 25 mcg q.a.m. - we will continue to monitor Type 2 diabetes, uncontrolled Hb A1c 8.1% on 05/15/2024 - sliding scale insulin Iron deficiency anemia - ordered iron panel: Serum iron 22, TIBC 284, % saturation 7.7 - we will continue to monitor Hypokalemia - replace potassium PUD prophylaxis: IV Protonix 40 mg DVT prophylaxis: SCD Goals of care: Full code, discussed for >16 minutes on 06/27/24 Plan discussed with patient Plan discussed with Dr. Myrick Plan discussed with: Patient, Daughter, Son, Other (RN) My Orders My Orders Orders - RICARDO العراقي RESIDENT Procedure Category Date Status Time Ipratropium Medneb PHA 07/02/24 In Process (Atrovent Medneb) 15:00 Albuterol Medneb PHA 07/02/24 In Process (Ventolin Medneb) 15:00 Basic Metabolic Panel LAB 07/03/24 Logged 04:00 Ketorolac Injection PHA 07/03/24 Verified (Toradol Injection) 10:45 Amlodipine Tablet PHA 07/03/24 Verified (Norvasc Tablet) 10:45 Amlodipine Tablet PHA 07/04/24 Verified (Norvasc Tablet) 10:00 Pt Request For Service PT 07/03/24 Verified 10:41 Dietary Evaluation Review Comments: Continue current plan of care Expected Outcomes/Goals: F/U in 3-5 days Date of Service: Jul 03, 2024 Billing Provider: RAULITO MYRICK MD Common Visit Codes: 20998-[id number] INP/OBS CARE(MOD) Secondary Visit Codes: 62400-TEBAXBLF CARE PLAN 30 MINUTES Coding Comment Comment I saw and evaluated the patient. I reviewed the residents note and agree with findings and plan as documented in the residents note. More than 30 minutes spent in advanced care planning, including discussing code status, medical decision maker, goals of care and disposition planning. Specifically we discussed with family regarding the use of PEG tube, decision with family together was that if patient is able to tolerate oral intake, we will discharge home with services tomorrow. I personally discuss with our GI recruiting operations consultant RICARDO Lassiter RESIDENT Jul 03, 2024 10:46 RAULITO MYRICK MD Jul 03, 2024 20:28
[2024-07-03 11:51] LABS: Chloride 110 mmol/L (98-107); Potassium 3.1 mmol/L (3.5-5.1); Sodium 139 mmol/L (136-145)
[2024-07-03 11:52] LABS: Anion Gap 6 (5-15); Carbon Dioxide 23 mmol/L (20-31)
[2024-07-03 11:53] LABS: Calcium 8.3 mg/dL (8.7-10.4)
[2024-07-03 11:57] LABS: Glucose 138 mg/dL (74-106)
[2024-07-03 12:03] LABS: BUN/Creatinine Ratio 7.1 (10.0-20.0); Blood Urea Nitrogen < 5 mg/dL (9-23)
[2024-07-03] MEDS: POTASSIUM EFFERVESENT TAB 25 MEQ PO ONE (16:15)
--- NOTE | 2024-07-03 17:49 | DVHPN2 ---
Progress Note - Dictate Date Seen: Jul 03, 2024 Medical Necessity Reason Pt with a Central, PICC or Fol: Yes The following are medically ne: Young Catheter Subjective Patient seen at bedside, sleeping comfortably No new complaints Ate 75% of her full liquid diet Last CT chest done in February of this year and findings noted, patient has a small subcentimeter pulmonary nodule Colonoscopy findings discussed with family, one small polyp removed otherwise normal examination vital signs Vital Sign Date Time Temp Pulse Resp B/P (MAP) Pulse Ox O2 Delivery O2 Flow Rate FiO2 07/03/24 17:00 98.7 103 20 148/67 (94) 97 98.7 07/03/24 10:00 Room Air* 0 21 Total Intake and Output 07/02/24 07/02/24 07/03/24 15:00 23:00 07:00 Intake Total 50 ml 50 ml 400 ml Output Total 425 ml 850 ml Balance 50 ml -375 ml -450 ml medications Current Medications Medications Dose Ordered Sig/Pan Route Start Time Stop Time Status Last Admin Dose Admin Ceftriaxone Sodium 50 ml @ 100 mls/hr DAILY@09 IV 06/27/24 09:00 07/03/24 09:48 100 MLS/HR Hydralazine HCl 10 mg Q6HP PRN IV 06/26/24 15:00 07/03/24 06:21 10 MG Levothyroxine Sodium 25 mcg QAM@0600 PO 06/27/24 06:00 07/03/24 06:20 25 MCG Diagnostic Test (Pha) 1 strip ACHS 06/26/24 17:00 07/03/24 16:18 1 STRIP Insulin Human Regular ACHS SC 06/26/24 17:00 07/01/24 21:42 2 UNITS Dextrose 50 ml UD PRN IV 06/26/24 15:00 Docusate Sodium 100 mg BIDPRN PRN PO 06/26/24 15:00 Acetaminophen 650 mg Q6HP PRN PO 06/26/24 15:00 Nitroglycerin 0.4 mg Q5MINP PRN SL 06/26/24 16:00 Sucralfate 1 gm QID@0600,1130,1700,2200 PO 06/27/24 17:00 07/03/24 16:16 1 GM Pantoprazole Sodium 40 mg DAILY@0630 IV 06/29/24 06:30 07/03/24 06:23 40 MG Losartan Potassium 50 mg DAILY PO 06/29/24 10:00 07/03/24 09:50 50 MG Sodium Chloride 1,000 ml @ 75 mls/hr [id number] IV 07/01/24 14:15 07/01/24 14:41 75 MLS/HR Haloperidol Lactate 2.5 mg QIDP PRN IM 07/02/24 10:15 07/03/24 09:48 2.5 MG Olanzapine 5 mg DAILY PO 07/03/24 10:00 07/03/24 11:01 5 MG Ipratropium Nelson 0.5 mg Q6HPRN PRN NEB 07/02/24 15:00 07/02/24 15:19 0.5 MG Albuterol 2.5 mg Q6HPRN PRN NEB 07/02/24 15:00 07/02/24 15:19 2.5 MG Ketorolac Tromethamine 15 mg BID PRN IV 07/03/24 10:45 07/05/24 18:00 Amlodipine Besylate 10 mg DAILY PO 07/04/24 10:00 objective Patient is sleeping but at baseline is more awake and alert Pupils equal and react to light, extraocular muscles are intact Lungs are clear, S1-S2 regular rate rhythm Abdomen is soft nontender nondistended , obese Extremities show no clubbing cyanosis or edema laboratory and microbiology Laboratory Tests 07/03/24 10:36 07/02/24 07:30 Test 07/03/24 10:36 Range/Units Serum Glucose 138 H 74-106 mg/dL Problems(with codes): (1) Generalized weakness (2) Projectile vomiting with nausea (3) Complicated urinary tract infection (4) Anxiety (5) Mild malnutrition Prognosis Plan Advance to pureed diet Patient will try some food from her home Possible discharge planning in a.m. Patient has a scheduled outpatient follow up with me Dietary Evaluation Review Comments: Continue current plan of care Expected Outcomes/Goals: F/U in 3-5 days Plan discussed with: Patient, Other (Dr Dumas) FIFI CHUN MD Jul 03, 2024 17:49
[2024-07-04 01:00] VITALS: BP 134/66; PULSE 91; RESP 17; TEMP 98.4; O2SAT 97
[2024-07-04 05:00] VITALS: BP 148/74; PULSE 93; RESP 17; TEMP 98.3; O2SAT 94
[2024-07-04 08:30] VITALS: PULSE 94; RESP 18; O2SAT 95
[2024-07-04 08:46] VITALS: BP 150/68; PULSE 92; RESP 19; TEMP 98.3; O2SAT 93
[2024-07-04] MEDS: KETOROLAC TROMETH 30 MG/ML 1ML VIAL IV PRN (10:01)
[2024-07-04 10:14] LABS: Chloride 110 mmol/L (98-107); Potassium 3.3 mmol/L (3.5-5.1); Sodium 142 mmol/L (136-145)
[2024-07-04 10:15] LABS: Anion Gap 7 (5-15); Carbon Dioxide 25 mmol/L (20-31)
[2024-07-04 10:16] LABS: Calcium 8.6 mg/dL (8.7-10.4)
[2024-07-04 10:20] LABS: Glucose 127 mg/dL (74-106)
[2024-07-04 10:29] LABS: BUN/Creatinine Ratio 6.3 (10.0-20.0); Blood Urea Nitrogen < 5 mg/dL (9-23)
[2024-07-04 10:30] VITALS: O2SAT 95
[2024-07-04] MEDS ORDERED: OLAN1TAB7 PO (11:22)
[2024-07-04 13:00] VITALS: BP 116/38; PULSE 94; RESP 18; TEMP 97.8; O2SAT 95
[2024-07-04] MEDS: amLODIPine BESYLATE 5 MG TAB PO SCH (13:36)
[2024-07-04] MEDS: POTASSIUM EFFERVESENT TAB 25 MEQ PO ONE (13:37)
[2024-07-04] MEDS: MAALOX PLUS or MAALOX 30 ML PO ONE (13:37)
[2024-07-04] MEDS: POTASSIUM CHLORIDE 20 MEQ, LIDOCAINE 1% (LOCAL ANESTH.) 2 ML in SODIUM CHL 0.9% 100 ML IV ONE (13:38)
--- NOTE | 2024-07-04 13:41 | DVHPN2 ---
Progress Note - Dictate Date Seen: Jul 04, 2024 Medical Necessity Reason Pt with a Central, PICC or Fol: Yes The following are medically ne: Young Catheter Subjective Patient seen at bedside, awake alert No new complaints Ate 75% of her full liquid diet Last CT chest done in February of this year and findings noted, patient has a small subcentimeter pulmonary nodule Colonoscopy findings discussed with family, one small polyp removed otherwise normal examination vital signs Vital Sign Date Time Temp Pulse Resp B/P (MAP) Pulse Ox O2 Delivery O2 Flow Rate FiO2 07/04/24 13:00 97.8 94 18 116/38 (64) 95 97.8 07/03/24 20:00 Room Air* 0 21 Total Intake and Output 07/03/24 07/03/24 07/04/24 15:00 23:00 07:00 Intake Total 50 ml 350 ml 450 ml Output Total 600 ml 350 ml Balance 50 ml -250 ml 100 ml medications Current Medications Medications Dose Ordered Sig/Pan Route Start Time Stop Time Status Last Admin Dose Admin Ceftriaxone Sodium 50 ml @ 100 mls/hr DAILY@09 IV 06/27/24 09:00 07/03/24 09:48 100 MLS/HR Hydralazine HCl 10 mg Q6HP PRN IV 06/26/24 15:00 07/03/24 06:21 10 MG Levothyroxine Sodium 25 mcg QAM@0600 PO 06/27/24 06:00 07/04/24 06:34 25 MCG Diagnostic Test (Pha) 1 strip ACHS 06/26/24 17:00 07/04/24 07:14 1 STRIP Insulin Human Regular ACHS SC 06/26/24 17:00 07/01/24 21:42 2 UNITS Dextrose 50 ml UD PRN IV 06/26/24 15:00 Docusate Sodium 100 mg BIDPRN PRN PO 06/26/24 15:00 Acetaminophen 650 mg Q6HP PRN PO 06/26/24 15:00 Nitroglycerin 0.4 mg Q5MINP PRN SL 06/26/24 16:00 Sucralfate 1 gm QID@0600,1130,1700,2200 PO 06/27/24 17:00 07/04/24 06:34 1 GM Pantoprazole Sodium 40 mg DAILY@0630 IV 06/29/24 06:30 07/04/24 06:34 40 MG Losartan Potassium 50 mg DAILY PO 06/29/24 10:00 07/03/24 09:50 50 MG Sodium Chloride 1,000 ml @ 75 mls/hr [id number] IV 07/01/24 14:15 07/01/24 14:41 75 MLS/HR Haloperidol Lactate 2.5 mg QIDP PRN IM 07/02/24 10:15 07/03/24 09:48 2.5 MG Olanzapine 5 mg DAILY PO 07/03/24 10:00 07/03/24 11:01 5 MG Ipratropium Acosta 0.5 mg Q6HPRN PRN NEB 07/02/24 15:00 07/02/24 15:19 0.5 MG Albuterol 2.5 mg Q6HPRN PRN NEB 07/02/24 15:00 07/02/24 15:19 2.5 MG Ketorolac Tromethamine 15 mg BID PRN IV 07/03/24 10:45 07/05/24 18:00 07/04/24 10:01 15 MG Amlodipine Besylate 10 mg DAILY PO 07/04/24 10:00 objective Patient is sleeping but at baseline is more awake and alert Pupils equal and react to light, extraocular muscles are intact Lungs are clear, S1-S2 regular rate rhythm Abdomen is soft nontender nondistended , obese Extremities show no clubbing cyanosis or edema laboratory and microbiology Laboratory Tests 07/04/24 09:50 07/02/24 07:30 Test 07/04/24 09:50 Range/Units Serum Glucose 127 H 74-106 mg/dL Problems(with codes): (1) Mild malnutrition (2) Anxiety (3) Generalized weakness (4) Intractable vomiting Prognosis Plan Discharge planning is in progress Patient was advised to stay mostly on a full liquid and a pureed diet as tolerated Outpatient follow up is already scheduled in my clinic in four weeks Maintained on PPI Reassurance and support Dietary Evaluation Review Comments: Continue current plan of care Expected Outcomes/Goals: F/U in 3-5 days Plan discussed with: Patient, Daughter FIFI CHUN MD Jul 04, 2024 13:41
--- NOTE | 2024-07-04 16:37 | DVHDSRES ---
Discharge Summary Date of Admission Resident Creating Document: RICARDO العراقي RESIDENT Jun 26, 2024 at 15:49 Date of Discharge: Jul 04, 2024 Labs/Diagnostic Data: Laboratory Results Test 07/04/24 13:59 07/04/24 09:50 07/02/24 07:30 07/01/24 13:40 POC Glucose 90 mg/dl (70-106) Sodium Level 142 mmol/L (136-145) Potassium Level 3.3 mmol/L (3.5-5.1) Chloride Level 110 mmol/L (98-107) Carbon Dioxide Level 25 mmol/L (20-31) Anion Gap 7 (5-15) Blood Urea Nitrogen < 5 mg/dL (9-23) Creatinine 0.80 mg/dL (0.550-1.02) Glomerular Filtration Rate Calc 73 mL/min (>90) BUN/Creatinine Ratio 6.3 (10.0-20.0) Serum Glucose 127 mg/dL (74-106) Calcium Level 8.6 mg/dL (8.7-10.4) White Blood Count 3.6 10^3/uL (4.4-10.8) Red Blood Count 4.39 10^6/uL (4.0-5.20) Hemoglobin 10.1 g/dL (12.2-16.2) Hematocrit 33.0 % (36.0-46.0) Mean Corpuscular Volume 75.2 fL (80.0-100.0) Mean Corpuscular Hemoglobin 23.0 pg (28.0-32.0) Mean Corpuscular Hemoglobin Concent 30.6 g/dL (32.0-36.0) Red Cell Distribution Width 20.0 % (11.8-14.3) Platelet Count 290 10^3/uL (140-450) Mean Platelet Volume 7.1 fL (6.9-10.8) Neutrophils (%) (Auto) 39.3 % (37.0-80.0) Lymphocytes (%) (Auto) 33.9 % (10.0-50.0) Monocytes (%) (Auto) 13.4 % (0.0-12.0) Eosinophils (%) (Auto) 11.6 % (0.0-7.0) Basophils (%) (Auto) 1.8 % (0.0-2.0) Neutrophils # (Auto) 1.4 10 ^3/uL (1.6-8.6) Lymphocytes # (Auto) 1.2 10 ^3/uL (0.4-5.4) Monocytes # (Auto) 0.5 10 ^3/uL (0-1.3) Eosinophils # (Auto) 0.4 10 ^3/uL (0-0.8) Basophils # (Auto) 0.1 10 ^3/uL (0-0.2) Nucleated Red Blood Cells 0.2 % Prothrombin Time 12.5 sec (9.3-11.8) Prothrombin Time INR 1.19 (0.9-1.15) Activated Partial Thromboplast Time 30.1 SEC (24.5-34.5) Vitamin B12 Level 883 pg/mL (211-911) Lactic Acid Level 1.6 mmol/L (0.4-2.0) Ammonia < 10 umol/L (11-32) Test 07/01/24 11:58 06/29/24 04:35 06/28/24 18:51 06/28/24 18:17 Blood Gas Specimen Type Arterial Blood Gas Sample Site Right brachial Blood Gas Patient Temperature 37.0 Arterial Blood Date Drawn [id number] Arterial Blood pH 7.368 (7.350-7.450) Arterial Blood Partial Pressure CO2 34.4 mmHg (32.0-45.0) Arterial Blood Partial Pressure O2 101.8 mmHg (83.0-108.0) Arterial Blood HCO3 19.4 mmol/L (21.0-28.0) Arterial Blood Oxygen Saturation 96.7 % (94.0-98.0) Arterial Blood Base Excess -5.3 mmol/L (-2.0-3.0) Arterial Blood Oxyhemoglobin 95.8 % (94.0-98.0) Arterial Blood Carboxyhemoglobin 0.3 % (0.5-1.5) Arterial Blood Methemoglobin 0.6 % (0.0-1.5) Hao Test N/a Blood Gas Total Hemoglobin 10.30 g/dL (12.0-16.0) Blood Gas Modality Nasal cannula FiO2 % 28.0 CA 19-9 Antigen 11 U/mL (0-35) Carcinoembryonic Antigen 2.51 ng/mL (<=5.0) Lipase 36 U/L (12-53) Test 10/31/24 13:33 06/27/24 05:45 06/26/24 14:38 06/26/24 12:07 Stool Occult Blood Negative (Negative) Stool Occult Blood Sample #3 (Negative) Stool for White Cells None seen Differential Total Cells Counted 100.0 (100) Neutrophils % (Manual) 42 (37.0-80.0) Band Neutrophils % (Manual) 0 Lymphocytes % (Manual) 52 (10.0-50.0) Monocytes % (Manual) 1 (0-12) Eosinophils % (Manual) 5 (0-7) Basophils % (Manual) 0 (0.0-2.0) Metamyelocytes % (manual) 0 Myelocytes % (Manual) 0 Promyelocytes % (Manual) 0 Blast Cells % (Manual) 0 Reactive Lymphocytes 0 Platelet Estimate Adequate Iron Level 22 ug/dL (50-170) Total Iron Binding Capacity 284 ug/dL (250-425) Percent Iron Saturation 7.7 % (15-50) Total Bilirubin 0.6 mg/dL (0.2-1.0) Aspartate Amino Transferase (AST) 37 U/L (13-40) Alanine Aminotransferase (ALT) 16 U/L (7-40) Alkaline Phosphatase 52 U/L (46-116) B-Type Natriuretic Peptide 64.48 pg/mL (0-100) Total Protein 5.1 g/dL (5.7-8.2) Albumin 3.3 g/dL (3.2-4.8) Troponin I High Sensitivity 6 ng/L (</=34) Thyroid Stimulating Hormone (TSH) 2.06 uIU/mL (0.55-4.78) Urine Color Light-yellow (Yellow) Urine Clarity Clear (Clear) Urine pH 5.5 (5.0-9.0) Urine Specific [place] 1.006 (1.001-1.035) Urine Protein Negative (Negative) Urine Ketones Negative (Negative) Urine Blood Negative /uL (Negative) Urine Nitrite 2+ (Negative) Urine Bilirubin Negative (Negative) Urine Urobilinogen Normal mg/dL (Negative) Urine Leukocyte Esterase 3+ /uL (Negative) Urine RBC 2 /hpf (0 - 4) Urine WBC 52 /hpf (0 - 5) Urine Squamous Epithelial Cells None seen /hpf (<5) Urine Bacteria Few /hpf (None Seen) Urine Glucose Normal mg/dL (Normal) Other Laboratory Tests 07/04/24 09:50 07/02/24 07:30 Brief Hx & Hospital Course: Patient is a year old female with past medical history of osteoarthritis, type 2 diabetes, dyslipidemia, thyroid disease, hypertension, dementia new in onset as reported by the family, heart failure with reduced ejection fraction 45%, left buttock skin tear, hypothyroidism, who came in due to generalized weakness accompanied with nausea, and vomiting. Patient has had similar episodes in the past with hospitalization twice in the past for similar episodes. Per patient's son, she is unable to keep any food or liquids down and ends up vomiting anything she tries to eat. Patient has completed workup for diabetic gastroparesis that came back negative, CT scan of the abdomen with and without contrast during previous hospitalizations also came back negative, patient completed an EGD during last hospitalization which was largely unremarkable except mild gastritis and erosive esophagitis. Serum sodium is 131, UA shows 2+ nitrites, 3+ leukocyte esterase, 52 WBCs and few bacteria. Patient is started on IV NS at 60 cc/hour and IV ceftriaxone. Hospital course: CT abdomen pelvis showed no acute abdominal or pelvic finding. Left renal cysts. Degenerative changes in the spine. Calcified atherosclerotic disease. Right middle lobe lung nodule measuring up to 7 mm. Barium esophagogram was done for the patient which showed mild esophageal reflux disease. Contrast flows normally through the GE junction into the stomach. No achalasia visualized. Patient was continued on IV NS at 60 cc/hour, IV Zofran, p.o. Carafate and IV Protonix. Blood culture came back negative, urine culture grew E coli and stool culture grew Campylobacter. Head MRI was ordered which showed no acute intracranial process. Moderate to severe chronic microvascular ischemic changes in the supratentorial white matter. Patient was started on olanzapine 5 mg p.o. daily for intractable nausea and vomiting along with Haldol 2.5 mg IM Q 8 hours as needed for nausea and vomiting. Colonoscopy was completed for the patient which showed 2-3 mm benign-appearing polyp in the ileocecal valve which was removed completely via cold biopsy forceps. Trace internal hemorrhoids otherwise normal examination up to the cecum and terminal ileum. For her UTI patient was treated with IV ceftriaxone. Treatment for Campylobacter was not indicated so patient was treated supportively along with IV hydration. A consult was ordered for patient in a diagnosis of anxiety disorder, not otherwise specified was made patient was initially started on buspirone 5 mg p.o. b.i.d., however, patient had an episode of increased somnolence and nonresponsiveness for 5-7 minutes, after which buspirone was discontinued and patient was continued on olanzapine. Home medications including levothyroxine, losartan, amlodipine were continued. Potassium was replaced with both IV and p.o. potassium owing to patient's intolerance to liquids. On the day of discharge, patient appeared well and had stable vital signs. The day prior to discharge patient was instructed to have some home cooked meal of her liking possibly liquid-soft. Patient tolerated more than half of the feeds she received however could not eat more than just a few bites. Patient was instructed to follow up with Psychiatry in the outpatient if her intractable nausea and vomiting along with dysphagia to solids and liquids continues for more than 7 days. Her hospital course was uncomplicated. General Appearance: Cooperative. Well developed. Well nourished. Dry mucous membranes Head Exam: Normal inspection Neck Exam: Normal inspection. Non-tender. Normal alignment Pulmonary/Respiratory: Chest non-tender. Clear bilateral breath sounds, no crackles, no wheezing. Cardiovascular/Chest: Regular rate and rhythm. A systolic murmur likely flow murmur grade 3-4. No JVD. Peripheral Pulses: 2+ Radial (R). 2+ Radial (L). 2+ Pedal (R). 2+ Pedal (L) Abdominal Exam: Normal bowel sounds. Distended but soft abdomen. normal abdomen, no visible veins, Nontender. No hepatospenomegaly. No masses Extremity, left upper extremity strength 3/5, right upper extremity strength 2/5 Ankle Exam: Negative ankle edema Lower extremities: Trace lower extremity edema. decreased b/l lower extremity strength Neuro/Mental Status: A&O x4. Coherent. Thoughts/Psych: Normal thought pattern. Appropriate mood and affect. Good judgement and insight Skin Exam: Normal inspection. Normal color. Warm. Dry Operations or Procedures EXAM: NM GASTRIC EMPTING STUDY History: gastroparesis Comparison Study: None TECHNIQUE: Following ingestion of a standard solid gastric emptying test meal labeled with 1.1 mCi Tc-99m sulfur colloid, anterior and posterior images are obtained in the upright position at approximately [0, 1, and 1.5 hours]. Regions of interest were drawn around the stomach, and geometric mean time activity curves were generated. FINDINGS: Initial activity in the gastric fundus progressively moves into the antrum and subsequently empties from the stomach. Over the imaging interval, radiotracer empties from the stomach into the small bowel without evidence of obstruction. Percent retained gastric activity is as follows: 23 % at 1 hour, 2 % at 1.5 hours (normal references: Between 30% to 90% at 1 hour, < 60% at 2 hours, < 30% at 3 hours, < 10% at 4 hours). Time activity curve demonstrates a solid gastric half-emptying time of 42.67 minutes (upper limit of normal = 90-120 min). IMPRESSION: 1. Rapid gastric emptying. Exam: CT CT ABD PELVIS W CON-ORAL IV History: intractable vomiting Comparison Study: None available at time of dictation. TECHNIQUE: Multidetector CT of the abdomen was performed from lung bases to pubic symphysis. Imaging was performed without IV contrast. Axial, coronal and sagittal multiplanar reformats were obtained from the axial data set by the technologist. Radiation Dose Information: CT Dose: CTDI volume is 21.22 mGy. Dose-length product is 1132.33 mGy*cm. Omnipaque 300: 100 ML. 500 cc of oral contrast X2. FINDINGS: Evaluation of solid organs is limited due to lack of intravenous contrast use. Findings: Lung Bases: There are 3 small subpleural nodules in the right lower lung field the largest is 4.76 mm subpleural nodule anteriorly in the right lower lobe. Liver: The liver is normal in size. No focal lesions. Gallbladder and Biliary Tree: Unremarkable Spleen: Unremarkable Pancreas: The pancreas is grossly normal in appearance. Adrenal Glands: Unremarkable Kidneys: Kidneys are grossly normal without calculi or hydronephrosis. Small bilateral renal cysts largest is on the left measures 2 cm. Bladder: Young catheter in the bladder. Bowel: The stomach is grossly normal in appearance. Small bowel and colon are normal in caliber and distribution. The appendix is appendix is visualized and there are no periappendiceal abnormalities or inflammatory changes. Ascites: Absent Lymphadenopathy: No mesenteric, retroperitoneal or periportal lymphadenopathy. Abdominal Wall and Mesentery: Small fat containing umbilical hernia. Vasculature: The visualized abdominal aorta is normal in size and caliber. Evaluation of abdominal and pelvic vessels is limited due to lack of intravenous contrast. Pelvic Organs: Unremarkable Musculoskeletal: No aggressive focal bony lesions, acute fractures or dislocation. Soft tissues: Unremarkable IMPRESSION: 1. 5 mm subpleural nodule anteriorly in the right lower lobe suggest follow-up according to Fleischner criteria. 2. Bibasilar areas of ground-glass infiltrate. 3. Scattered calcified coronary artery disease. 4. Young catheter in the bladder. 5. Multiple subpleural nodules right lower lobe largest is 5 mm. Recommend follow-up according to Fleischner criteria. Radiation optimization: All CT scans at this facility use at least one of these dose optimization techniques: automated exposure control mA and/or kV adjustment per patient size (includes targeted exams where dose is matched to clinical indication) or iterative reconstruction. Fleischner Society pulmonary nodule recommendations (2017): Single solid nodule <6 mm Low-risk patients: no routine follow-up required High-risk patients: optional CT at 12 months (particularly with suspicious nodule morphology and/or upper lobe location) Solitary solid nodule 6-8 mm Low-risk patients: CT at 6-12 months, then consider CT at 18-24 months High-risk patients: CT at 6-12 months, then CT at 18-24 months Solitary solid nodule >8 mm (>250 mm3) Low-risk and high-risk patients: consider CT at 3 months, PET/CT, or tissue sampling Multiple solid nodules <6 mm Low-risk patients: no routine follow-up required High-risk patients: optional CT at 12 months Multiple solid nodules >6 mm Low-risk patients: CT at 3-6 months, then consider CT at 18-24 months High-risk patients: CT at 3-6 months, then CT at 18-24 months When multiple nodules are present, the most suspicious nodule should guide further individualized management. Solitary groundglass opacities < 6 mm require no follow-up Multiple groundglass opacities < 6 mm: CT 3-6 months. If stable consider CT at 2 , and 4 years Groundglass opacities >6 mm: follow-up in 6-12 months and then every 2 years for 5 years. Groundglass opacities greater than 6 mm with part solid component follow-up CT in 3-6 months to confirm persistence. If unchanged and solid component remains less than [address] for 5 years Multiple groundglass opacities greater than 6 mm: CT at 3-6 months. Subsequent management based on the most suspicious nodules. These recommendations do not necessarily apply to women, patients with immunosuppression or a prior history of cancer, patients with multiple nodules that are suspicious for metastasis or infection, or patients with mediastinal lymphadenopathy or pleural effusion in whom cancer is strongly suspected. Exam: CT CT AB PEL WITH IV CON ONLY History: abdominal pain inability to tolerate po COMPARISON: CT CT ABD PELVIS W CON-ORAL IV on DOS: 05/28/24, CT CT AB PEL WO CON-NO ORAL OR IV on DOS: 05/21/24, CT CT AB PEL WO CON-NO ORAL OR IV on DOS: 05/14/24 Technique: Multidetector spiral CT of the abdomen and pelvis was performed from lung bases to pubic symphysis. Intravenous contrast was administered during this examination. Portal venous imaging was obtained. Axial, coronal and sagittal multiplanar reformats were performed by the technologist on a separate workstation. Radiation Dose : Abdomen/Pelvis: CTDIvol 16.68 mGy, DLP 886.8 mGy*cm. CONTRAST: Type of contrast: Omni 300 Contrast injected: 100 mL Findings: Lung Bases: Nodule in the right middle lobe measuring up to 7mm similar to prior exam. Liver: The liver is normal in size. No focal lesions. Normal hepatic vascular enhancement. Gallbladder and biliary Tree: Unremarkable Spleen: Unremarkable Pancreas: The pancreas is normal in appearance without focal lesions or abnormal enhancement. Adrenal Glands: Unremarkable Kidneys: There are left renal cysts. No hydronephrosis or nephrolithiasis. Bladder: Bladder is decompressed with a Young catheter and cannot be adequately assessed. Bowel: The stomach is grossly normal in appearance. Small bowel and colon are normal in caliber and distribution. Normal appendix is visualized in the right lower quadrant without findings of appendicitis. Ascites: Absent Lymphadenopathy: No mesenteric, retroperitoneal or periportal lymphadenopathy. Abdominal wall and Mesentery: Unremarkable. Vasculature: The visualized abdominal aorta is normal in size and caliber. There is calcified atherosclerotic plaque involving the aorta and its branches. Abdominal and pelvic vessels demonstrate normal enhancement. Pelvic Organs: Unremarkable Musculoskeletal: Grade 1 anterolisthesis of L5 on S1 IMPRESSION: 1. No acute abdominal or pelvic finding. Left renal cysts. Degenerative changes in the spine. Calcified arthrosclerotic disease. Right middle lobe nodule measuring up to 7mm. Consider dedicated chest CT Radiation optimization: All CT scans at this facility use at least one of these dose optimization techniques: Automated exposure control mA and/or kV adjustment per patient size (includes targeted exams where dose is matched to clinical indication) or iterative reconstruction. HS:Y Exam: CT AB PEL WO CON-NO ORAL OR IV History: persistent vomitting Comparison Study: CT AB PEL WO CON-NO ORAL OR IV on DOS: 05/14/24, CT ABD PELVIS WO CONTRAST on DOS: 02/20/21 TECHNIQUE: Multidetector CT of abdomen and pelvis was performed without IV contrast. Axial, coronal and sagittal multiplanar reformats were obtained from the axial data set by the technologist. Radiation Dose Information: CT Dose: CTDI volume is 13.76 mGy. Dose-length product is 698.12 mGy*cm FINDINGS: No evidence for obstruction. Ascending aorta is enlarged 4 cm. Patient has pulmonary vascular congestion possible interstitial edema and some indication for chronic interstitial changes in the right lung base There are calcifications in the a coronary arteries in the aortic valve. The ascending aorta measures 4 cm which is above normal limits. There are dense calcification abdominal aorta iliacs. Left kidney has a trophic changes in a simple cyst. Stomach gastrointestinal tract are generally unremarkable no evidence for obstruction. Appendix is normal. Bladder is normal. Uterus is atrophied but anteverted. Bones demonstrates the significant disc disease of the lumbosacral spine. IMPRESSION: 1. No acute findings Patient has pulmonary vascular congestion interstitial edema possible chronic changes involving the right lower lung. Ascending aorta is enlarged beyond normal limits. Gastrointestinal tract appears to be grossly within normal ESOPHAGUS GASTROGRAFIN SWALLOW, HISTORY: DYSPHAGIA ACHALASIA COMPARISON: None PROCEDURE: A machine carton marker radiograph was obtained prior to the procedure. Gastrograffin administered orally, and radiographs were obtained under intermittent fluoroscopic observation. Total fluoroscopic time was 0.6 minutes. DAP 226 FINDINGS: The machine carton marker film demonstrates no abnormality. The esophagus was normal in caliber with no stricture, filling defect or wall irregularity demonstrated. Normal esophageal peristalsis was observed. Mild esophageal reflux was demonstrated during this exam. IMPRESSION: Mild esophageal reflux disease visualized. Contrast flows normally through the GE junction into the stomach. No achalasia visualized. Procedure: XY SMALL BOWEL SERIES-W GASTROGRA Reason for study/Clinical History: abd pain, persistant N/V Comparison Study: None available at time of dictation. Technique: Single contrast small bowel series performed. FINDINGS/IMPRESSION: Initial machine carton marker view of the abdomen and pelvis appears demonstrates no acute process. Contrast is questionably identified within the colon. The study was only imaged for 1 hour. Small-bowel follow-through normally or continued for 3 hours.. Recommend follow-up. ASOUND ABDOMEN LIMITED INDICATION: Abdominal pain.. TECHNIQUE: Multiple real-time sonographic images of the abdomen were obtained. COMPARISON: US ABDOMEN LIMITED on DOS: 05/29/24 FINDINGS: The visualized liver parenchyma appears homogenous . The liver measures 12.5 cm. No discrete hepatic lesion or intrahepatic biliary ductal dilatation is identified. There is no evidence of gallstones, gallbladder wall thickening or pericholecystic fluid. The common duct is not visualized. The right kidney measures 10.7 cm length. There is a 7 mm echogenic focus in the lower pole of the right kidney which may represent a small calculus. There is no hydronephrosis. Visualized pancreas appears within normal limits. IMPRESSION: 1. 7 mm echogenic focus in the lower pole of the right kidney may represent a small nonobstructive calculus. MRI BRAIN WITHOUT CONTRAST CLINICAL HISTORY: CHRONIC STROKE TECHNIQUE: Multiplanar, multisequence MR images of the brain without intravenous contrast. Comparison: CT head 01/27/2022 FINDINGS: The MR images are degraded by motion artifact. There is no restricted diffusion. There are confluence hyperintense T2 signal changes in the bilateral cerebral white matter compatible with moderate to severe chronic microvascular ischemic changes. There is no evidence of hemorrhage, mass, mass effect or midline shift. There is no hydrocephalus or extra-axial fluid collection. The visualized intracranial vasculature demonstrates appropriate flow-voids. The sagittal midline structures appear unremarkable. The craniocervical junction is within normal limits. There are degenerative changes in the visualized upper cervical spine. The calvarium demonstrates normal marrow signal. The paranasal sinuses and mastoid air cells are clear. IMPRESSION: 1. There is no acute intracranial process. 2. Moderate to severe chronic microvascular ischemic changes in the supratentorial white matter. HS:Y Condition at Discharge: Good Final Diagnosis/Problems List Intractable nausea and vomiting; ruled out achalasia Likely voluntary refusal of feeding Generalized weakness Hyponatremia, serum sodium 131, resolved Dehydration Leukopenia due to above Acute complicated UTI Gastroenteritis, Campylobacter jejuni Anxiety disorder, not otherwise specified Heart failure with reduced ejection fraction 35%, currently stable Hypertension Dyslipidemia History of Hypothyroidism Type 2 diabetes, uncontrolled Hb A1c 8.1% on 05/15/2024 Iron deficiency anemia Hypokalemia Discharge Disposition: Home Discharge Instruct/Medications Diet: Consistent carbohydrate, See Comment Diet comment: Continue to encourage patient to take full liquid-mechanical soft diet as tolerated Activity: No Restrictions, As Tolerated Follow Up/Referral: Please follow up with GI in the outpatient clinic Please follow up with Psychiatry in the outpatient clinic Medications: Olanzapine 5 mg daily Discontinued Jardiance due to repeated urinary tract infections Continue other home medications Discharge Statement: "Patient was advised to return to the ER or call 911 if any headaches, dizziness, shortness of breath, chest pain, abdominal pain, bleeding, fevers, or worsening of medical condition. Patient was counseled about treatment plan, medications, possible side effects, patientverbalized understanding. All questions were answered to the best of my ability. This discharge took greater then 30 minutes in planning, reviewing documentation, counseling the patient, and discussing with other team members." ASSESSMENT ASSESSMENT Assessment Intractable nausea and vomiting; ruled out achalasia Likely voluntary refusal of feeding Generalized weakness Hyponatremia, serum sodium 131, resolved Dehydration Leukopenia due to above Acute complicated UTI Gastroenteritis, Campylobacter jejuni Anxiety disorder, not otherwise specified Heart failure with reduced ejection fraction 35%, currently stable Hypertension Dyslipidemia History of Hypothyroidism Type 2 diabetes, uncontrolled Hb A1c 8.1% on 05/15/2024 Iron deficiency anemia Hypokalemia Date of Service: Jul 04, 2024 Billing Provider: RAULITO FRANCO MD Common Visit Codes: 48084-PIQ/OBS DISCH DAY >30min Secondary Visit Codes: 65955-CTQVQJDG CARE PLAN 30 MINUTES Coding Comment Comment I saw and evaluated the patient. I reviewed the residents note and agree with findings and plan as documented in the residents note. More than 30 minutes spent in advanced care planning, including discussing code status, medical decision maker, goals of care and disposition planning. Discussed with family, if patient persistently refused to eat as patient said that she would rather than eat, I informed the family to bring the patient to [facility], as ECT might be beneficial especially if patient has an underlying psychiatric comorbidity. Son on the phone expressed understanding. Patient is able to tolerate oral feeding with liquid to mechanical soft, however will stop after a sip or two. Informed family to continue to encourage small frequent feedings. RICARDO العراقي RESIDENT Jul 04, 2024 16:37 RAULITO FRANCO MD Jul 04, 2024 21:16
== END 2024-07-04 16:25 | disposition home or self-care (01) | DRG 348 ==
LOC: EDBD 09:58 → ER 09:58 → TELE 15:49 → TELE-WESTW 21:45 → WEST WING 06-27 14:12 → CENTRAL 06-28 16:02
PROVIDERS: ADMIT Student in an Organized Health Care Education/Training Program; ATTEND Student in an Organized Health Care Education/Training Program
PROC: 0DBK8ZZ Excision of Ascending Colon, Via Natural or Artificial Opening Endoscopic (ICD-10-PCS; 2024-07-02)
PROC: 0DBC8ZZ Excision of Ileocecal Valve, Via Natural or Artificial Opening Endoscopic (ICD-10-PCS; principal; 2024-07-02 11:34)
DX: A04.5 Campylobacter enteritis (principal); E87.1 Hypo-osmolality and hyponatremia; N39.0 Urinary tract infection, site not specified; I50.20 Unspecified systolic (congestive) heart failure; E11.65 Type 2 diabetes mellitus with hyperglycemia; E86.0 Dehydration; D50.9 Iron deficiency anemia, unspecified; K21.9 Gastro-esophageal reflux disease without esophagitis; I11.0 Hypertensive heart disease with heart failure; F41.9 Anxiety disorder, unspecified; E78.5 Hyperlipidemia, unspecified; E03.9 Hypothyroidism, unspecified; N28.1 Cyst of kidney, acquired; K52.9 Noninfective gastroenteritis and colitis, unspecified; S31.000A Unspecified open wound of lower back and pelvis without penetration into retroperitoneum, initial encounter; X58.XXXA Exposure to other specified factors, initial encounter; E87.6 Hypokalemia; F01.50 Vascular dementia, unspecified severity, without behavioral disturbance, psychotic disturbance, mood disturbance, and anxiety; K64.8 Other hemorrhoids; Y93.89 Activity, other specified; Y92.89 Other specified places as the place of occurrence of the external cause; Y99.8 Other external cause status
CPT/HCPCS: 36415; 36600; 70551; 71045; 74177; 74220; 74250; 76705; 80048; 80053; 81001; 82140; 82270; 82378; 82607; 82728; 82805; 82962; 83540; 83550; 83605; 83690; 83880; 84443; 84484; 85007; 85025; 85027; 85048; 85610; 85730; 86301; 86850; 86900; 86901; 87040; 87045; 87081; 87086; 87088; 87186; 87427; 92610; 93005; 94640; 96361; 96365; 96375; 97116; 97163; 97530; 99291; G0378; J1815; J1885; J2003; J2405; J2470; J2704; J3480; J3490